=== PATIENT | female | born 1940 | race Caucasian/White ===

== ENCOUNTER 2018-10-09 17:43 | Inpatient (IN) | payer MEDICARE ==
[~2018-10-09] VITALS: Ht 152.4 cm; Wt 46.3 kg
--- OUTSIDE RECORDS SUMMARY | 2018-10-09 17:47 | XMS REPORT | Clinical Summary ---
Author Author [facility] Organization [facility] Address Unknown Phone Unavailable Care Team Providers Care Adult Care Provider Name Role Phone Barrett Reyna MD PCP Allergies No Known Allergies Medications End Date Status Medication Sig Dispensed Refills Start Date Active lisinopril Take 5 mg by 11 (PRINIVIL,ZESTRIL) 5 mg mouth every 8 tablet morning. Active aspirin (ECOTRIN) 81 MG Take 81 mg by 0 enteric coated tablet mouth every morning. Active omeprazole (PriLOSEC) 20 Take 20 mg by 0 MG capsule mouth every morning. 12/17/2017 Discontinued metoprolol tartrate Take 50 mg by 2 (LOPRESSOR) 50 mg tablet mouth every 8 morning. 12/29/2017 Discontinued lansoprazole (PREVACID) Take 15 mg by 0 15 MG capsule mouth daily. 01/16/2018 metoprolol tartrate Take 1 tablet 60 tablet 0 (LOPRESSOR) 50 mg tablet (50 mg total) 8 by mouth 2 (two) times a day for 30 days. 01/16/2018 apixaban (ELIQUIS) 2.5 mg Take 1 tablet 60 tablet 0 tablet (2.5 mg 8 total) by mouth 2 (two) times a day for 30 days. 01/16/2018 furosemide (LASIX) 40 mg Take 1 tablet 60 tablet 0 tablet (40 mg total) 8 by mouth 2 (two) times a day for 30 days. 01/03/2018 Discontinued escitalopram (LEXAPRO) 10 Take 1 tablet 30 tablet 0 MG tablet (10 mg total) 8 by mouth daily for 30 days. 02/02/2018 mirtazapine (REMERON) 7.5 Take 1 tablet 30 tablet 0 01/03/201 MG tablet (7.5 mg 8 total) by mouth nightly for 30 days. Active Problems Problem Noted Date Failure to thrive in adult 12/30/2017 Dehydration 12/29/2017 Atrial fibrillation with RVR 12/16/2017 Encounters Care Team Description Date Type Specialty Neda Choi MD Bavare, Arusha Amod, MD Dehydration (Primary Dx); Failure to thrive in adult; Atrial fibrillation with RVR 12/29/2017 [facility] General Surgery - Encounter 01/03/2018 Radha Ventura, NEY 12/17/2017 Patient Quality Outreach Michelle Beltran MD Yerramadha, Muralidhar Reddy, MD Atrial fibrillation with RVR (Primary Dx); Paroxysmal atrial fibrillation; Acute systolic congestive heart failure; Hyperkalemia; Acute on chronic combined systolic and diastolic congestive heart failure 12/15/2017 [facility] Internal Medicine - Encounter 12/17/2017 after 10/08/2017 Social History Date Tobacco Use Types Packs/Day Years Used Never Smoker Smokeless Tobacco: Never Used Alcohol Use Drinks/Week oz/Week Comments No Sex Assigned at Date Recorded Not on file Industry Job Start Date Occupation Not on file Not on file Not on file Travel End Travel History Travel Start No recent travel history available. Last Filed Vital Signs Time Taken Vital Sign Reading 01/03/2018 11:29 AM CDT Blood Pressure 112/59 01/03/2018 11:29 AM CDT Pulse 82 01/03/2018 11:29 AM CDT Temperature 36.6 C (97.9 F) 01/03/2018 11:29 AM CDT Respiratory Rate 16 01/03/2018 11:29 AM CDT Oxygen Saturation 94% - Inhaled Oxygen - Concentration 12/29/2017 2:42 PM CDT Weight 39.5 kg (87 lb) 12/29/2017 2:42 PM CDT Height 157.5 cm (5' 2") 12/29/2017 2:42 PM CDT Body Mass Index 15.91 Plan of Treatment Health Maintenance Due Date Last Done Comments SHINGLES VACCINES (#1) 1990 65+ PNEUMOCOCCAL VACCINE 2005 (1 of 2 - PCV13) PNEUMOCOCCAL 2005 POLYSACCHARIDE VACCINE AGE 65 AND OVER INFLUENZA VACCINE 02/08/2018 Procedures Comments Procedure Name Priority Date/Time Associated Diagnosis CT CHEST W CONTRAST Routine 01/03/2018 3:25 PM CDT SMEAR REVIEW Routine 01/03/2018 4:57 AM CDT ZZESTIMATED GFR Routine 01/03/2018 4:57 AM CDT BASIC METABOLIC PANEL Routine 01/03/2018 4:57 AM CDT HC COMPLETE BLD COUNT Routine 01/03/2018 W/AUTO DIFF 4:57 AM CDT VANCOMYCIN LEVEL, TROUGH Timed 01/01/2018 9:10 PM CDT VANCOMYCIN LEVEL, TROUGH Timed 12/31/2017 9:10 PM CDT ZZESTIMATED GFR Routine 12/30/2017 5:34 AM CDT BASIC METABOLIC PANEL Routine 12/30/2017 5:34 AM CDT HC COMPLETE BLD COUNT Routine 12/30/2017 W/AUTO DIFF 5:34 AM CDT VENOUS BLOOD GAS Routine 12/30/2017 1:35 AM CDT BLOOD CULTURE, AEROBIC & Routine 12/29/2017 ANAEROBIC 9:25 PM CDT B NATRIURETIC PEPTIDE Routine 12/29/2017 9:05 PM CDT LACTIC ACID LEVEL, SEPSIS Timed 12/29/2017 - NOW AND REPEAT 2X EVERY 9:05 PM CDT 3 HOURS BLOOD CULTURE, AEROBIC & Routine 12/29/2017 ANAEROBIC 9:05 PM CDT LACTIC ACID LEVEL, SEPSIS Timed 12/29/2017 - NOW AND REPEAT 2X EVERY 8:00 PM CDT 3 HOURS XR CHEST 1 VW STAT 12/29/2017 5:01 PM CDT URINALYSIS SCREEN AND STAT 12/29/2017 MICROSCOPY, WITH REFLEX 4:10 PM CDT TO CULTURE GRAM STAIN STAT 12/29/2017 4:10 PM CDT URINE CULTURE STAT 12/29/2017 4:10 PM CDT ZZESTIMATED GFR STAT 12/29/2017 4:00 PM CDT LACTIC ACID LEVEL, SEPSIS STAT 12/29/2017 - NOW AND REPEAT 2X EVERY 4:00 PM CDT 3 HOURS TROPONIN STAT 12/29/2017 4:00 PM CDT CREATINE KINASE, TOTAL STAT 12/29/2017 (CPK) 4:00 PM CDT COMPREHENSIVE METABOLIC STAT 12/29/2017 PANEL 4:00 PM CDT HC COMPLETE BLD COUNT STAT 12/29/2017 W/AUTO DIFF 4:00 PM CDT ECG 12-LEAD STAT 12/29/2017 3:33 PM CDT ECG ED PRELIMINARY Routine 12/29/2017 INTERPRETATION 3:18 PM CDT ECG 12-LEAD Routine 12/29/2017 2:55 PM CDT ZZESTIMATED GFR Routine 12/17/2017 5:30 AM CDT HC COMPLETE BLD COUNT Routine 12/17/2017 W/AUTO DIFF 5:30 AM CDT BASIC METABOLIC PANEL Routine 12/17/2017 5:30 AM CDT ECHOCARDIOGRAM 2D Routine 12/16/2017 COMPLETE W MMODE SPECTRAL 11:05 AM CDT COLOR DOPPLER (34619) TROPONIN Timed 12/15/2017 9:40 PM CDT TROPONIN Timed 12/15/2017 5:23 PM CDT XR CHEST 1 VW PORTABLE STAT 12/15/2017 2:00 PM CDT ECG ED PRELIMINARY Routine 12/15/2017 INTERPRETATION 1:48 PM CDT ZZESTIMATED GFR STAT 12/15/2017 1:28 PM CDT B NATRIURETIC PEPTIDE STAT 12/15/2017 1:28 PM CDT TROPONIN STAT 12/15/2017 1:28 PM CDT CREATINE KINASE, TOTAL STAT 12/15/2017 (CPK) 1:28 PM CDT COMPREHENSIVE METABOLIC STAT 12/15/2017 PANEL 1:28 PM CDT PARTIAL THROMBOPLASTIN STAT 12/15/2017 TIME (PTT) 1:28 PM CDT PROTHROMBIN TIME WITH INR STAT 12/15/2017 1:28 PM CDT HC COMPLETE BLD COUNT STAT 12/15/2017 W/AUTO DIFF 1:28 PM CDT ECG 12-LEAD STAT 12/15/2017 1:00 PM CDT after 10/08/2017 Results * CT Chest W Contrast (01/03/2018 3:25 PM CDT) Narrative Performed At EXAMINATION:CT CHEST W CONTRAST [facility] CLINICAL HISTORY: 77 years Female mediastinal lymph nodes TECHNIQUE: Multiple axial images of the chest were obtained following intravenous administration of iodinated contrast. Sagittal and coronal computerized reformatted images were also obtained. CT imaging was performed with iterative reconstruction techniques and/or automated exposure control to reduce radiation dose. COMPARISON: Chest x-ray from December 29, 2017 FINDINGS: There are a few small nonspecific mediastinal lymph nodes including a right paratracheal node measuring 6 mm in short axis just above the will. Additional small nodes in the aorticopulmonary window toward the left measure up to approximately 5.4 cm in diameter. No worrisome nodes are visualized. There is a small to moderate hiatal hernia. A small right pleural effusion is present with volume loss in the right hemithorax. The heart appears normal in size they're is no focal finding identified on views of the upper abdomen which were included in the study. There is emphysema. The left lung is moderately hyperinflated the right lung/hemithorax demonstrates volume loss with scarring and cicatrization in the medial right upper lobe medial right lower lobe and extending to the apex. 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 Correlation with clinical findings is needed. There are no additional findings of significance noted. There is no hilar adenopathy the findings noted on the chest x-ray appear to be result of scarring cicatrization of the right lung with some rotation on the chest x-ray as well. There is diffuse osteopenia of the thoracic spine. There is mild kyphosis no acute finding is visualized IMPRESSION: 1. 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 A mild area of pneumonia in the middle lobe medially is not excluded although this is probably related to chronic pleural and parenchymal scarring 2. Moderately large hiatal hernia. 3. Small right pleural effusion 4. No hilar mass is identified [id number] Procedure Note Hm Interface, Radiology Results Incoming - 01/03/2018 5:12 PM CDT EXAMINATION: CT CHEST W CONTRAST CLINICAL HISTORY: 77 years Female mediastinal lymph nodes TECHNIQUE: Multiple axial images of the chest were obtained following intravenous administration of iodinated contrast. Sagittal and coronal computerized reformatted images were also obtained. CT imaging was performed with iterative reconstruction techniques and/or automated exposure control to reduce radiation dose. COMPARISON: Chest x-ray from December 29, 2017 FINDINGS: There are a few small nonspecific mediastinal lymph nodes including a right paratracheal node measuring 6 mm in short axis just above the will. Additional small nodes in the aorticopulmonary window toward the left measure up to approximately 5.4 cm in diameter. No worrisome nodes are visualized. There is a small to moderate hiatal hernia. A small right pleural effusion is present with volume loss in the right hemithorax. The heart appears normal in size they're is no focal finding identified on views of the upper abdomen which were included in the study. There is emphysema. The left lung is moderately hyperinflated the right lung/hemithorax demonstrates volume loss with scarring and cicatrization in the medial right upper lobe medial right lower lobe and extending to the apex. 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 Correlation with clinical findings is needed. There are no additional findings of significance noted. There is no hilar adenopathy the findings noted on the chest x-ray appear to be result of scarring cicatrization of the right lung with some rotation on the chest x-ray as well. There is diffuse osteopenia of the thoracic spine. There is mild kyphosis no acute finding is visualized IMPRESSION: 1. 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 A mild area of pneumonia in the middle lobe medially is not excluded although this is probably related to chronic pleural and parenchymal scarring 2. Moderately large hiatal hernia. 3. Small right pleural effusion 4. No hilar mass is identified [id number] Performing Organization Address [facility]/Zipcode Phone Number [employer] [address] [place] [address] * Smear review (01/03/2018 4:57 AM CDT) Platelet slide review Chapo slt decr [facility] DEPARTMENT OF PATHOLOGY AND GENOMIC MEDICINE Performing Organization Address [facility] Phone Number [address] [place] [address] PATHOLOGY AND GENOMIC MEDICINE * Estimated GFR (01/03/2018 4:57 AM CDT) Only the most recent of 5 results within the time period is included. GFR Non Af Amer >90 mL/min/1.73 m2 [facility] DEPARTMENT OF PATHOLOGY AND GENOMIC MEDICINE GFR Af Amer >90 mL/min/1.73 m2 [facility] DEPARTMENT OF Comment: PATHOLOGY AND Chronic kidney disease: <60 GENOMIC MEDICINE mL/min/1.73m2 Kidney failure: <15 mL/min/1.73m2 The estimated GFR is calculated from the IDMS-traceable Modification of Diet in Renal Disease Equation. The accuracy of the calculation is poor when the creatinine is normal. Calculated values >90 mL/min/1.73m2 are not reported. This equation has not been validated in children (<18 years), women, the elderly (>70 years), or ethnic groups other than Caucasians and Americans. Specimen Plasma specimen Performing Organization Address [facility] Phone Number [address] [place] [address] PATHOLOGY AND GENOMIC MEDICINE * CBC with platelet and differential (01/03/2018 4:57 AM CDT) Only the most recent of 5 results within the time period is included. WBC 4.55 4.50 - 11.00 k/uL [facility] DEPARTMENT OF PATHOLOGY AND GENOMIC MEDICINE RBC 4.20 4.20 - 5.50 m/uL [facility] DEPARTMENT OF PATHOLOGY AND GENOMIC MEDICINE HGB 11.9 (L) 12.0 - 16.0 g/dL [facility] DEPARTMENT OF PATHOLOGY AND GENOMIC MEDICINE HCT 39.8 37.0 - 47.0 % [facility] DEPARTMENT OF PATHOLOGY AND GENOMIC MEDICINE MCV 94.8 82.0 - 100.0 fL [facility] DEPARTMENT OF PATHOLOGY AND GENOMIC MEDICINE MCH 28.3 27.0 - 34.0 pg [facility] DEPARTMENT OF PATHOLOGY AND GENOMIC MEDICINE MCHC 29.9 (L) 31.0 - 37.0 g/dL [facility] DEPARTMENT OF PATHOLOGY AND GENOMIC MEDICINE RDW - SD 50.9 37.0 - 55.0 fL [facility] DEPARTMENT OF PATHOLOGY AND GENOMIC MEDICINE MPV 10.1 8.8 - 13.2 fL [facility] DEPARTMENT OF PATHOLOGY AND GENOMIC MEDICINE Platelet count 148 (L) 150 - 400 k/uL [facility] DEPARTMENT OF PATHOLOGY AND GENOMIC MEDICINE Nucleated RBC 0.00 /100 WBC [facility] DEPARTMENT OF PATHOLOGY AND GENOMIC MEDICINE Neutrophils 64.8 39.0 - 69.0 % [facility] DEPARTMENT OF PATHOLOGY AND GENOMIC MEDICINE Lymphocytes 23.3 (L) 25.0 - 45.0 % [facility] DEPARTMENT OF PATHOLOGY AND GENOMIC MEDICINE Monocytes 10.3 (H) 0.0 - 10.0 % [facility] DEPARTMENT OF PATHOLOGY AND GENOMIC MEDICINE Eosinophils 0.7 0.0 - 5.0 % [facility] OF PATHOLOGY AND GENOMIC MEDICINE Basophils 0.7 0.0 - 1.0 % [facility] DEPARTMENT OF PATHOLOGY AND GENOMIC MEDICINE Specimen Blood Performing Organization Address City/State/Zipcode Phone Number [facility] [address] [place] [address] PATHOLOGY AND GENOMIC MEDICINE * Basic metabolic panel (01/03/2018 4:57 AM CDT) Only the most recent of 3 results within the time period is included. Sodium 132 (L) 135 - 148 mEq/L [facility] DEPARTMENT OF PATHOLOGY AND GENOMIC MEDICINE Potassium 4.0 3.5 - 5.0 mEq/L [facility] DEPARTMENT OF PATHOLOGY AND GENOMIC MEDICINE Chloride 94 (L) 98 - 112 mEq/L [facility] DEPARTMENT OF PATHOLOGY AND GENOMIC MEDICINE CO2 24 24 - 31 mEq/L [facility] DEPARTMENT OF PATHOLOGY AND GENOMIC MEDICINE Anion gap 14@ANIO 7 - 15 mEq/L [facility] DEPARTMENT OF PATHOLOGY AND GENOMIC MEDICINE BUN 22 8 - 23 mg/dL [facility] DEPARTMENT OF PATHOLOGY AND GENOMIC MEDICINE Creatinine 0.6 0.5 - 0.9 mg/dL [facility] DEPARTMENT OF PATHOLOGY AND GENOMIC MEDICINE Glucose 86 65 - 99 mg/dL [facility] DEPARTMENT OF PATHOLOGY AND GENOMIC MEDICINE Calcium 8.5 (L) 8.8 - 10.2 mg/dL [facility] DEPARTMENT OF PATHOLOGY AND GENOMIC MEDICINE Specimen Plasma specimen Performing Organization Address [facility] Phone Number [address] [place] [address] PATHOLOGY AND GENOMIC MEDICINE * Vancomycin level, trough (01/01/2018 9:10 PM CDT) Only the most recent of 2 results within the time period is included. Vancomycin, trough 11.3 10.0 - 20.0 ug/mL [facility] DEPARTMENT OF Comment: PATHOLOGY AND Therapeutic Ranges: GENOMIC MEDICINE Peak 30.0 - 40.0 ug/mL Pzzlhy29.0 - 20.0 ug/mL Specimen Serum Performing Organization Address [facility] Phone Number [address] [place] [address] PATHOLOGY [facility] GENOMIC [facility] * Venous blood gas (12/30/2017 1:35 AM CDT) pH, venous 7.43 (H) 7.32 - 7.42 [facility] DEPARTMENT OF PATHOLOGY AND GENOMIC MEDICINE pCO2, venous 60 (H) 45 - 51 mmHg [facility] DEPARTMENT OF PATHOLOGY AND GENOMIC MEDICINE pO2, venous 36 25 - 40 mmHg [facility] DEPARTMENT OF PATHOLOGY AND GENOMIC MEDICINE Base excess, venous 13 (H) -2 - 2 meq/L [facility] DEPARTMENT OF PATHOLOGY AND GENOMIC MEDICINE O2 saturation, venous 67 40 - 70 % [facility] DEPARTMENT OF PATHOLOGY AND GENOMIC MEDICINE Bicarbonate, venous 36.4 (H) 21.0 - 28.0 mmol/L [facility] DEPARTMENT OF PATHOLOGY AND GENOMIC MEDICINE FiO2, inspired O2% 100 % [facility] DEPARTMENT OF PATHOLOGY AND GENOMIC MEDICINE Specimen Blood Performing Organization Address [facility]/Zipcode Phone Number [address] [place] [address] PATHOLOGY AND GENOMIC MEDICINE * Blood culture, aerobic & anaerobic (12/29/2017 9:25 PM CDT) Only the most recent of 2 results within the time period is included. Blood culture isolate No growth after 5 days of [facility] DEPARTMENT OF incubation. PATHOLOGY AND Comment: GENOMIC MEDICINE Specimen Information Specimen Source: Blood Specimen Site: Unspecified Specimen Blood Performing Organization Address City/[facility]/Zipcode Phone Number [facility] DEPARTMENT OF [address] [place] [address] PATHOLOGY AND GENOMIC MEDICINE * Lactic acid level, SEPSIS - Now and repeat 2x every 3 hours (12/29/2017 9:05 PM CDT) Only the most recent of 3 results within the time period is included. Lactic acid 2.9 (H) 0.5 - 2.2 mmol/L [facility] DEPARTMENT OF PATHOLOGY AND GENOMIC MEDICINE Specimen Plasma specimen Performing Organization Address [facility] Phone Number [address] [place] [address] PATHOLOGY AND GENOMIC MEDICINE * B natriuretic peptide (12/29/2017 9:05 PM CDT) Only the most recent of 2 results within the time period is included. BNP 217 (H) 0 - 100 pg/mL [facility] DEPARTMENT OF PATHOLOGY AND GENOMIC MEDICINE Specimen Blood Performing Organization Address [facility] Phone Number [address] [place] [address] PATHOLOGY AND GENOMIC MEDICINE * XR Chest 1 Vw (12/29/2017 5:01 PM CDT) Narrative Performed At Examination: Chest 1 view PA AP. [facility] CLINICAL HISTORY: SOB COMPARISON: 12/15/2017 FINDINGS: The heart is normal in size. Degenerative changes in the dorsal spine. IMPRESSION: Small right pleural effusion. Right hilar fullness with mediastinal widening is unchanged suspicious for right hilar lymph node ormass lesion. Bilateral chronic pleural apical scarring. There is decreased volume in the right lung compared to the left. Retrocardiac air collection is suspicious for hiatal hernia. [id number] Procedure Note Interface, Radiology Results Incoming - 12/29/2017 5:14 PM CDT Examination: Chest 1 view PA AP. CLINICAL HISTORY: SOB COMPARISON: 12/15/2017 FINDINGS: The heart is normal in size. Degenerative changes in the dorsal spine. IMPRESSION: Small right pleural effusion. Right hilar fullness with mediastinal widening is unchanged suspicious for right hilar lymph node or mass lesion. Bilateral chronic pleural apical scarring. There is decreased volume in the right lung compared to the left. Retrocardiac air collection is suspicious for hiatal hernia. [id number] Performing Organization Address City/State/Zipcode Phone Number [facility] [address] [place] [address] * Urinalysis screen and microscopy, with reflex to culture (12/29/2017 4:10 PM CDT) Specimen site Clean catch [facility] DEPARTMENT OF PATHOLOGY AND GENOMIC MEDICINE Color, UA Yellow [facility] DEPARTMENT OF PATHOLOGY AND GENOMIC MEDICINE Appearance, UA Clear [facility] DEPARTMENT OF PATHOLOGY AND GENOMIC MEDICINE Specific gravity, UA 1.011 1.001 - 1.035 [facility] DEPARTMENT OF PATHOLOGY AND GENOMIC MEDICINE pH, UA 6.0 5.0 - 8.5 [facility] DEPARTMENT OF PATHOLOGY AND GENOMIC MEDICINE Protein, UA Negative Negative [facility] DEPARTMENT OF PATHOLOGY AND GENOMIC MEDICINE Glucose, UA Negative Negative [facility] DEPARTMENT OF PATHOLOGY AND GENOMIC MEDICINE Ketones, UA Negative Negative [facility] DEPARTMENT OF PATHOLOGY AND GENOMIC MEDICINE Bilirubin, UA Negative Negative [facility] DEPARTMENT OF PATHOLOGY AND GENOMIC MEDICINE Blood, UA Negative Negative [facility] DEPARTMENT OF PATHOLOGY AND GENOMIC MEDICINE Nitrite, UA Negative Negative [facility] DEPARTMENT OF PATHOLOGY AND GENOMIC MEDICINE Urobilinogen, UA Negative <2.0 [facility] DEPARTMENT OF PATHOLOGY AND GENOMIC MEDICINE Leukocyte esterase, UA Moderate (A) Negative [facility] DEPARTMENT OF PATHOLOGY AND GENOMIC MEDICINE Epithelial cells, UA Many /HPF [facility] DEPARTMENT OF PATHOLOGY AND GENOMIC MEDICINE Round epithelial cells, Many 0 - 1 /HPF [facility] DEPARTMENT OF UA PATHOLOGY AND GENOMIC MEDICINE WBC, UA 6-10 (H) 0 - 4 /HPF [facility] DEPARTMENT OF PATHOLOGY AND GENOMIC MEDICINE RBC, UA 0-5 0 - 5 /HPF [facility] DEPARTMENT OF PATHOLOGY AND GENOMIC MEDICINE Bacteria, UA None seen None seen [facility] DEPARTMENT OF PATHOLOGY AND GENOMIC MEDICINE Yeast, UA None seen [facility] DEPARTMENT OF PATHOLOGY AND GENOMIC MEDICINE Yeast with pseudohyphae, None seen [facility] DEPARTMENT UA PATHOLOGY AND GENOMIC MEDICINE Hyaline casts, UA >21 /LPF [facility] DEPARTMENT OF PATHOLOGY AND GENOMIC MEDICINE Specimen Urine Performing Organization Address [facility] Phone Number [address] [place] [id number] PATHOLOGY AND GENOMIC MEDICINE * Gram stain (12/29/2017 4:10 PM CDT) Gram stain result No WBC's or organisms seen. [facility] DEPARTMENT OF Comment: PATHOLOGY AND Specimen Information GENOMIC MEDICINE Specimen Source: Urine Specimen Site: Clean catch Specimen Urine Performing Organization Address [facility] Phone Number [facility] DEPARTMENT OF [address] [place] [phone] PATHOLOGY AND GENOMIC MEDICINE * Urine culture (12/29/2017 4:10 PM CDT) Urine culture isolate No growth after 2 days. [facility] DEPARTMENT OF Comment: PATHOLOGY AND Specimen Information GENOMIC MEDICINE Specimen Source: Urine Specimen Site: Clean catch Specimen Urine Performing Organization Address [facility] Phone Number [facility] DEPARTMENT OF [address] [place] [phone] PATHOLOGY AND GENOMIC MEDICINE * Troponin (12/29/2017 4:00 PM CDT) Only the most recent of 4 results within the time period is included. Troponin <0.300 0.000 - 0.300 ng/mL [facility] DEPARTMENT OF Comment: PATHOLOGY AND 0.30 - 1.49 GENOMIC MEDICINE ng/mlMay indicate increased risk of acute coronary syndrome. >=1.5 ng/ml Consistent with acute myocardial infarction. The diagnostic value of a single normal or non-diagnostic result is questionable.Serial samples at 2-6 hour intervals are required to rule out acute myocardial injury. Specimen Plasma specimen Performing Organization Address [facility] Phone Number [facility] DEPARTMENT [address] [place] [address] PATHOLOGY AND GENOMIC MEDICINE * Creatine kinase, total (CPK) (12/29/2017 4:00 PM CDT) Only the most recent of 2 results within the time period is included. Creatine kinase 38 26 - 192 U/L [facility] DEPARTMENT OF PATHOLOGY AND GENOMIC MEDICINE Specimen Plasma specimen Performing Organization Address [facility] Phone Number [address] [place] [address] PATHOLOGY AND GENOMIC MEDICINE * Comprehensive metabolic panel (12/29/2017 4:00 PM CDT) Only the most recent of 2 results within the time period is included. Sodium 141 135 - 148 mEq/L [facility] DEPARTMENT OF PATHOLOGY AND GENOMIC MEDICINE Potassium 3.0 (LL) 3.5 - 5.0 mEq/L [facility] DEPARTMENT OF Comment: PATHOLOGY AND Results called to and read GENOMIC MEDICINE back by LUCIAN Philippe/TEODORO at 12/29/2017 16:35 by [id number]. Chloride 91 (L) 98 - 112 mEq/L [facility] DEPARTMENT OF PATHOLOGY AND GENOMIC MEDICINE CO2 36 (H) 24 - 31 mEq/L [facility] DEPARTMENT OF PATHOLOGY AND GENOMIC MEDICINE Anion gap 14@ANIO 7 - 15 mEq/L [facility] DEPARTMENT OF PATHOLOGY AND GENOMIC MEDICINE BUN 25 (H) 8 - 23 mg/dL [facility] DEPARTMENT OF PATHOLOGY AND GENOMIC MEDICINE Creatinine 0.8 0.5 - 0.9 mg/dL [facility] DEPARTMENT OF PATHOLOGY AND GENOMIC MEDICINE Glucose 187 (H) 65 - 99 mg/dL [facility] DEPARTMENT OF PATHOLOGY AND GENOMIC MEDICINE Calcium 9.3 8.8 - 10.2 mg/dL [facility] DEPARTMENT OF PATHOLOGY AND GENOMIC MEDICINE Protein 7.7 6.3 - 8.3 g/dL [facility] DEPARTMENT OF Comment: PATHOLOGY AND GENOMIC MEDICINE 4.6-7.0 g/dL 1 week 4.4-7.6 g/dL 7 months-1year 5.1-7.3 g/dL 1-2 years5.6-7 .5 g/dL >3 years6.0-8 .0 g/dL 18-150 6.3-8.3 g/dL Albumin 3.8 3.5 - 5.0 g/dL [facility] DEPARTMENT OF PATHOLOGY AND GENOMIC MEDICINE A/G ratio 1.0 0.7 - 3.8 [facility] DEPARTMENT OF PATHOLOGY AND GENOMIC MEDICINE Alkaline phosphatase 70 35 - 104 U/L [facility] DEPARTMENT OF PATHOLOGY AND GENOMIC MEDICINE AST 25 10 - 35 U/L [facility] DEPARTMENT OF PATHOLOGY AND GENOMIC MEDICINE ALT 11 5 - 50 U/L [facility] DEPARTMENT OF PATHOLOGY AND GENOMIC MEDICINE Total bilirubin 0.7 0.0 - 1.2 mg/dL [facility] DEPARTMENT OF PATHOLOGY AND GENOMIC MEDICINE Specimen Plasma specimen Performing Organization Address City/State/Zipcode Phone Number [facility] [address] [place] [address] PATHOLOGY AND GENOMIC MEDICINE * ECG 12 lead (12/29/2017 3:33 PM CDT) Only the most recent of 3 results within the time period is included. Ventricular rate 104 [facility] Atrial rate 104 [facility] QRSD interval 74 [facility] QT interval 326 [facility] QTC interval 428 [facility] P axis 1 77 [facility] QRS axis 1 67 [facility] T wave axis 240 [facility] EKG impression Sinus tachycardia with 1st [facility] degree AV block with premature atrial complexes-Left ventricular hypertrophy with repolarization abnormality-Abnormal ECG-In automated comparison with ECG of 15-DEC-2017 13:00,-Sinus rhythm has replaced Atrial fibrillation-Nonspecific T wave abnormality now evident in Inferior leads-Nonspecific T wave abnormality, worse in Anterolateral leads- Performing Organization Address City/State/Zipcode Phone Number [facility] [address] [place] [address] * ECG ED Preliminary Interpretation - NOT AN ORDER (12/29/2017 3:18 PM CDT) Only the most recent of 2 results within the time period is included. Narrative Performed At Neda Choi MD 12/30/20171:24 AM ECG ED Preliminary Interpretation - Not an Order Performed by: NEDA CHOI Authorized by: NEDA CHOI ECG reviewed by ED Physician in the absence of a signing teacher: yes Interpretation: Interpretation: abnormal Rate: ECG rate:104 ECG rate assessment: tachycardic Rhythm: Rhythm: A-V block Rhythm comment:1st degree QRS: QRS axis:Normal ST segments: ST segments:Non-specific T waves: T waves: non-specific * Echocardiogram complete w contrast and 3D if needed (12/16/2017 11:05 AM CDT) AoV Area, Vmax 1.36 cm2 [facility] AoV Area, VTI 1.62 cm2 [facility] AoV Mean PG 5.49 mmHg [facility] AoV Peak PG 17.52 mmHg [facility] AoV Vmax 2.09 m/s [facility] AoV VTI 0.24 m [facility] IVS,d 0.85 0.6 - 1.2 cm [facility] LV,d 3.15 cm [facility] LV EF,A2C 62.27 % [facility] LV EF,A4C 53.34 % [facility] LV EF,BP 58.40 % [facility] [place],d A2C 6.80 cm [facility] [place],d A4C 6.26 cm [facility] [place],s A2C 6.13 cm [facility] [place],s A4C 5.72 cm [facility] LV,s 2.27 cm [facility] LV SV,A2C 29.45 % [facility] LV SV,A4C 19.71 % [facility] LV Vol,d A2C 47.28 mL [facility] LV Vol,d A4C 36.95 ml [facility] LV Vol,d BP 43.23 ml [facility] LV Vol,s A2C 17.84 mL [facility] LV Vol,s A4C 17.24 ml [facility] LV Vol,s BP 17.98 nl [facility] LVOT Diam,S 1.86 cm [facility] LVOT Vmax 0.79 m/s [facility] LVOT VTI 0.14 m [facility] LVPWD,d 0.60 cm [facility] TR Vpeak 2.80 mm/s [facility] MV E A ratio 1.17 mmHg [facility] TR pk grad 31.30 mmHg [facility] E wave decelartion time 168.05 msec [facility] MV Peak A Yevgeniy 0.47 m/s [facility] MV valve area p 1/2 6.25 cm2 [facility] method MV Peak E Yevgeniy 0.55 m/s [facility] MV stenosis pressure 1/2 35.22 ms [facility] time AV LVOT peak gradient 2.47 mmHg [facility] LV SYS VOL 17.51 ml [facility] LV ARAMBULA VOL 39.53 ml [facility] LV SV Teich 2D 22.02 ml [facility] LVOT SI 28.11 ml/m2 [facility] AoV Cusp sep 0.81 [facility] AoV Vmn 1.11 [facility] IVS s 2D 1.03 [facility] LA Ao Ratio Mmode 1.23 [facility] LVOT Vmn 0.49 [facility] Ao root annulus 2.70 cm [facility] PV AT 76.12 msec [facility] LVOT mean grad 1.12 mmHg [facility] LVPW s PLAX 1.01 cm [facility] MV Decel slope 3.28 m/s2 [facility] LA Vol MOD A4C 32.58 ml [facility] Velocity Ratio (V1/V2) 0.38 m/s [facility] EF 55.70 % [facility] E/A ratio 1.17 [facility] LVOT area 2.72 cm2 [facility] LA volume 40.0 cm3 [facility] LA Area d A4C 33 cm2 [facility] RVSP (TR) 36.30 mmHg [facility] RA pressure 5.00 mmHg [facility] RVSP 36.30 mmHg [facility] LA diam s 3.30 cm [facility] Aortic Root 2.70 cm [facility] D E excurs 1.60 [facility] E f slope 0.03 [facility] E prime lat 0.06 [facility] E wilmer sept 0.05 [facility] PV acc T slope 12.40 [facility] Narrative Performed At [facility] The left ventricle chamber size is normal. Left Ventricular ejection fraction is 55 - 60%. No pericardial effusion Mild to moderate aortic valve stenosis. Mild pulmonary hypertension present. Performing Organization Address City/State/Zipcode Phone Number [facility] [address] [place] [address] * XR Chest 1 Vw Portable (12/15/2017 2:00 PM CDT) Narrative Performed At EXAMINATION:XR CHEST 1 VW PORTABLE [facility] CLINICAL HISTORY:Chest Pain COMPARISON:10/04/2017 IMPRESSION: 1.Small to moderate right pleural effusion. Extensive scarring and volume loss. Right hilar fullness is similar to prior exam, cannot rule out underlying lesion. Biapical pleural parenchymal scarring. The left lung is otherwise clear. 2.Top normal heart size. Mild atherosclerosis of thoracic aorta. 3.Generalized bone demineralization. Degenerative changes in the spine and shoulders. [id number] Procedure Note Hm Interface, Radiology Results Incoming - 12/15/2017 2:13 PM CDT EXAMINATION: XR CHEST 1 VW PORTABLE CLINICAL HISTORY: Chest Pain COMPARISON: 10/04/2017 IMPRESSION: 1. Small to moderate right pleural effusion. Extensive scarring and volume loss. Right hilar fullness is similar to prior exam, cannot rule out underlying lesion. Biapical pleural parenchymal scarring. The left lung is otherwise clear. 2. Top normal heart size. Mild atherosclerosis of thoracic aorta. 3. Generalized bone demineralization. Degenerative changes in the spine and shoulders. [facility]-[id number] Performing Organization Address [facility] Phone Number [facility] [address] [place] [address] * Partial thromboplastin time, activated (12/15/2017 1:28 PM CDT) PTT 26.1 23.0 - 36.0 sec [facility] DEPARTMENT OF Comment: PATHOLOGY AND PTT therapeutic range for GENOMIC MEDICINE unfractionated heparin is 61.0-112.0 seconds which corresponds to Anti-Xa 0.3-0.7 U/ml. Specimen Blood Performing Organization Address [facility] Phone Number [facility] [place] [id number] [place] [address] [place] [address] PATHOLOGY AND GENOMIC MEDICINE * Prothrombin time with INR (12/15/2017 1:28 PM CDT) Prothrombin time 13.2 12.0 - 15.0 sec [facility] DEPARTMENT OF PATHOLOGY AND GENOMIC MEDICINE INR 1.0 [facility] DEPARTMENT OF Comment: PATHOLOGY AND The International Normalized GENOMIC MEDICINE Ratio (INR) is a therapeutic monitoring tool for patients who are stable on oral anticoagulant therapy. An INR of 2.0-3.0 is suggested for deep vein thrombosis/pulmonary embolism. Specimen Blood Performing Organization Address [facility] Phone Number [address] [place] [address] PATHOLOGY AND GENOMIC MEDICINE after 10/08/2017 Insurance Payer Benefit Subscriber ID Type Phone Address Plan / Group HU[employer] MEDICARE HUMANA xxxxxxxxx PPO MEDICARE PPO/PFFS/E [facility] Advance Directives Patient has advance care planning documents, and code status on file. For more i nformation, please contact: Brant Talamantes [address] [place] [address] Date Inactivated Comments Code Status Date Activated 12/17/2017 5:30 PM Full Code 12/15/2017 5:13 PM Code Status decision reached by: Patient
--- OUTSIDE RECORDS SUMMARY | 2018-10-09 17:47 | XMS REPORT ---
Author Author S Laurie Jiang Organization Unknown Address [address] [facility]. Phone Unavailable Care Team Providers Care Direct Care Supervisor Name Role Phone Dr. 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 01/03/2018 Active A41.9 SEPSIS, UNSPECIFIED ORGANISM 01/02/2018 Active I50.9 HEART FAILURE, UNSPECIFIED 01/02/2018 Active J44.9 CHRONIC OBSTRUCTIVE PULMONARY DISEASE, UNSPECIFIED 01/02/2018 Active I10 ESSENTIAL (PRIMARY) HYPERTENSION 01/02/2018 Active K21.9 GASTRO-ESOPHAGEAL REFLUX DISEASE WITHOUT ESOPHAGITIS 01/02/2018 Active F32.9 MAJOR DEPRESSIVE DISORDER, SINGLE EPISODE, UNSPECIFIED 01/02/2018 Active I25.2 OLD MYOCARDIAL INFARCTION 01/02/2018 Active E46 UNSPECIFIED PROTEIN-CALORIE MALNUTRITION 01/02/2018 Active 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 01/02/2018 Active Medications Medication Dose Form Route Sig Text Dates Status Omeprazole Capsule Delayed Release 20 MG 1 capsule Capsule Delayed Release Oral Give 1 capsule by mouth in the morning for GASTRIC ULCER 01/04/2018 7:00:00 01/24/2018 15:22:00 Aborted Apixaban Tablet 2.5 MG 1 tablet Tablet Oral 1 TAB(S) BY MOUTH 2 TIMES A DAY 01/04/2018 7:00:00 01/24/2018 15:22:00 Aborted Lisinopril Tablet 5 MG 1 tablet Tablet Oral 1 TAB(S) BY MOUTH DAILY 01/04/2018 7:00:00 01/24/2018 15:22:00 Aborted Lasix Tablet 40 MG 1 tablet Tablet Oral 1 TAB(S) BY MOUTH 2 TIMES A DAY 01/04/2018 7:00:00 01/10/2018 15:23:00 Aborted Aspirin Tablet 81 MG 1 tablet Tablet Oral Give 1 tablet by mouth in the morning for prevent blood clot 01/04/2018 7:00:00 01/24/2018 15:22:00 Aborted Mirtazapine Tablet 7.5 MG 1 tablet Tablet Oral 1 TAB(S) BY MOUTH AT BEDTIME 01/04/2018 19:00:00 01/10/2018 17:27:00 Aborted Metoprolol Tartrate Tablet 50 MG 1 tablet Tablet Oral 1 TAB(S) BY MOUTH 2 TIMES A DAY (HOLD FOR SBP <110; HR <60) 01/04/2018 7:00:00 01/24/2018 15:22:00 Aborted Silvadene Cream 1 % Cream External 1 APPLICATION TOPICALLY DAILY SHIFT SACRAL /LEFT GLUTEAL 01/05/2018 7:00:00 01/24/2018 15:22:00 Aborted Potassium Chloride ER Tablet Extended Release 20 MEQ 1 tablet Tablet Extended Release Oral Give 1 tablet by mouth one time a day related to HEART FAILURE, UNSPECIFIED (I50.9) 01/05/2018 7:00:00 01/12/2018 18:31:00 Aborted Santyl Ointment 250 UNIT/GM Ointment External 1 APPLICATION TOPICALLY DAILY AFFECTED AREA SACRAL ULCER 01/11/2018 7:00:00 01/24/2018 15:22:00 Aborted Nystatin Cream [id number] UNIT/GM Cream External Apply to sacral nima-wound topically every day shift for wound healing cleanse sacral ulcer with ns or wc, apply nystatin to periwound, santyl to the wound and cover with foam 01/11/2018 7:00:00 01/24/2018 15:22:00 Aborted Lasix Tablet 40 MG 1 tablet Tablet Oral 1 TAB(S) BY MOUTH DAILY 01/13/2018 7:00:00 01/12/2018 18:29:00 Aborted Remeron Tablet 15 MG 1 tablet Tablet Oral 1 TAB(S) BY MOUTH AT BEDTIME 01/10/2018 19:00:00 Lasix Tablet 40 MG 1 tablet Tablet Oral Give 1 tablet by mouth one time a day for Diuretic 01/15/2018 7:00:00 01/18/2018 14:39:00 Aborted Potassium Chloride ER Tablet Extended Release 20 MEQ 1 tablet Tablet Extended Release Oral Give 1 tablet by mouth one time a day related to HEART FAILURE, UNSPECIFIED (I50.9) 01/15/2018 7:00:00 01/18/2018 14:38:00 Aborted Multiple Vitamins-Minerals Tablet 1 tablet Tablet Oral Give 1 tablet by mouth one time a day for Micronutrient needs for PU healing 01/17/2018 7:00:00 01/24/2018 15:22:00 Aborted Furosemide Tablet 20 MG 1 tablet Tablet Oral 1 TAB(S) BY MOUTH DAILY 01/19/2018 7:00:00 01/24/2018 15:22:00 Aborted Tuberculin PPD Solution 0.1 ml Solution Intradermal Inject 0.1 ml intradermally one time only for Prophylaxis for 1 Day Adm within first 24 hours of admission. Repeat yearly. 01/03/2018 18:30:00 01/04/2018 18:29:00 Completed Tylenol Tablet 325 MG 2 tablet Tablet Oral Give 2 tablet by mouth every 6 hours as needed for pain for 3 Days not exceed more than 3gm in 24 hour 01/03/2018 21:00:00 01/06/2018 20:59:00 Completed Sodium Polystyrene Sulfonate Suspension 15 GM/60ML 30 gram Suspension Oral Give 30 gram by mouth one time only for high pottasium for 1 Day 01/12/2018 21:58:00 01/13/2018 21:57:00 Completed Ascorbic Acid Tablet 500 MG 1 tablet Tablet Oral Give 1 tablet by mouth two times a day for supplement for 60 Days 01/16/2018 15:00:00 01/24/2018 15:22:00 Aborted Zinc Sulfate Capsule 220 MG 1 capsule Capsule Oral Give 1 capsule by mouth one time a day for zinc deficiency for 60 Days 01/17/2018 7:00:00 01/24/2018 15:22:00 Aborted Results No Known Results Vital signs Description Observation Date INTRAVASCULAR SYSTOLIC 104.0 mm[Hg] 01/03/2018 22:50:00 INTRAVASCULAR DIASTOLIC 44.0 mm[Hg] 01/03/2018 22:50:00 BODY TEMPERATURE 96.8 [degF] 01/03/2018 22:50:00 RESPIRATION RATE 18.0 /min 01/03/2018 22:50:00 HEART BEAT 78.0 {beats}/min 01/03/2018 22:50:00 OXYGEN SATURATION 94.0 % 01/03/2018 22:50:00 RESPIRATION RATE 18.0 /min 01/04/2018 4:34:57 INTRAVASCULAR SYSTOLIC 98.0 mm[Hg] 01/04/2018 4:34:57 INTRAVASCULAR DIASTOLIC 64.0 mm[Hg] 01/04/2018 4:34:57 BODY TEMPERATURE 98.8 [degF] 01/04/2018 4:34:57 HEART BEAT 89.0 {beats}/min 01/04/2018 4:34:57 OXYGEN SATURATION 94.0 % 01/04/2018 4:48:00 RESPIRATION RATE 18.0 /min 01/04/2018 10:19:31 INTRAVASCULAR SYSTOLIC 109.0 mm[Hg] 01/04/2018 10:19:31 INTRAVASCULAR DIASTOLIC 74.0 mm[Hg] 01/04/2018 10:19:31 BODY TEMPERATURE 98.1 [degF] 01/04/2018 10:19:31 HEART BEAT 93.0 {beats}/min 01/04/2018 10:19:31 BODY WEIGHT (MEASURED) 87.0 [lb_av] 01/04/2018 10:31:00 BODY HEIGHT (MEASURED) 60.0 [in_i] 01/04/2018 10:31:00 INTRAVASCULAR SYSTOLIC 105.0 mm[Hg] 01/04/2018 14:18:59 INTRAVASCULAR DIASTOLIC 55.0 mm[Hg] 01/04/2018 14:18:59 HEART BEAT 82.0 {beats}/min 01/04/2018 14:18:59 RESPIRATION RATE 18.0 /min 01/04/2018 17:21:41 INTRAVASCULAR SYSTOLIC 105.0 mm[Hg] 01/04/2018 17:21:41 INTRAVASCULAR DIASTOLIC 55.0 mm[Hg] 01/04/2018 17:21:41 BODY TEMPERATURE 98.7 [degF] 01/04/2018 17:21:41 HEART BEAT 82.0 {beats}/min 01/04/2018 17:21:41 RESPIRATION RATE 18.0 /min 01/05/2018 3:54:32 INTRAVASCULAR SYSTOLIC 104.0 mm[Hg] 01/05/2018 3:54:32 INTRAVASCULAR DIASTOLIC 61.0 mm[Hg] 01/05/2018 3:54:32 BODY TEMPERATURE 97.9 [degF] 01/05/2018 3:54:32 HEART BEAT 84.0 {beats}/min 01/05/2018 3:54:32 OXYGEN SATURATION 94.0 % 01/05/2018 4:27:00 PAIN LEVEL 0.0 {score} 01/05/2018 7:16:43 INTRAVASCULAR SYSTOLIC 116.0 mm[Hg] 01/05/2018 7:17:33 INTRAVASCULAR DIASTOLIC 78.0 mm[Hg] 01/05/2018 7:17:33 HEART BEAT 77.0 {beats}/min 01/05/2018 7:17:33 RESPIRATION RATE 18.0 /min 01/05/2018 9:08:59 BODY TEMPERATURE 97.2 [degF] 01/05/2018 9:08:59 INTRAVASCULAR SYSTOLIC 111.0 mm[Hg] 01/05/2018 10:06:42 INTRAVASCULAR DIASTOLIC 69.0 mm[Hg] 01/05/2018 10:06:42 HEART BEAT 75.0 {beats}/min 01/05/2018 10:06:42 INTRAVASCULAR SYSTOLIC 117.0 mm[Hg] 01/05/2018 15:08:48 INTRAVASCULAR DIASTOLIC 92.0 mm[Hg] 01/05/2018 15:08:48 HEART BEAT 75.0 {beats}/min 01/05/2018 15:08:48 INTRAVASCULAR SYSTOLIC 102.0 mm[Hg] 01/05/2018 17:49:00 INTRAVASCULAR DIASTOLIC 72.0 mm[Hg] 01/05/2018 17:49:00 BODY TEMPERATURE 98.2 [degF] 01/05/2018 17:49:00 RESPIRATION RATE 18.0 /min 01/05/2018 17:49:00 HEART BEAT 88.0 {beats}/min 01/05/2018 17:49:00 OXYGEN SATURATION 92.0 % 01/05/2018 17:49:00 RESPIRATION RATE 18.0 /min 01/05/2018 21:13:10 INTRAVASCULAR SYSTOLIC 102.0 mm[Hg] 01/05/2018 21:13:10 INTRAVASCULAR DIASTOLIC 72.0 mm[Hg] 01/05/2018 21:13:10 BODY TEMPERATURE 98.1 [degF] 01/05/2018 21:13:10 HEART BEAT 88.0 {beats}/min 01/05/2018 21:13:10 OXYGEN SATURATION 98.0 % 01/06/2018 0:48:00 RESPIRATION RATE 18.0 /min 01/06/2018 0:54:35 INTRAVASCULAR SYSTOLIC 93.0 mm[Hg] 01/06/2018 0:54:35 INTRAVASCULAR DIASTOLIC 58.0 mm[Hg] 01/06/2018 0:54:35 BODY TEMPERATURE 98.1 [degF] 01/06/2018 0:54:35 HEART BEAT 86.0 {beats}/min 01/06/2018 0:54:35 INTRAVASCULAR SYSTOLIC 115.0 mm[Hg] 01/06/2018 7:29:36 INTRAVASCULAR DIASTOLIC 62.0 mm[Hg] 01/06/2018 7:29:36 HEART BEAT 89.0 {beats}/min 01/06/2018 7:29:36 PAIN LEVEL 0.0 {score} 01/06/2018 7:30:55 RESPIRATION RATE 18.0 /min 01/06/2018 9:31:55 BODY TEMPERATURE 97.6 [degF] 01/06/2018 9:31:55 INTRAVASCULAR SYSTOLIC 123.0 mm[Hg] 01/06/2018 11:25:01 INTRAVASCULAR DIASTOLIC 66.0 mm[Hg] 01/06/2018 11:25:01 HEART BEAT 64.0 {beats}/min 01/06/2018 11:25:01 INTRAVASCULAR SYSTOLIC 114.0 mm[Hg] 01/06/2018 15:09:15 INTRAVASCULAR DIASTOLIC 68.0 mm[Hg] 01/06/2018 15:09:15 HEART BEAT 82.0 {beats}/min 01/06/2018 15:09:15 INTRAVASCULAR SYSTOLIC 114.0 mm[Hg] 01/06/2018 15:53:00 INTRAVASCULAR DIASTOLIC 68.0 mm[Hg] 01/06/2018 15:53:00 BODY TEMPERATURE 98.2 [degF] 01/06/2018 15:53:00 RESPIRATION RATE 18.0 /min 01/06/2018 15:53:00 HEART BEAT 82.0 {beats}/min 01/06/2018 15:53:00 OXYGEN SATURATION 96.0 % 01/06/2018 15:53:00 RESPIRATION RATE 18.0 /min 01/06/2018 20:39:56 INTRAVASCULAR SYSTOLIC 114.0 mm[Hg] 01/06/2018 20:39:56 INTRAVASCULAR DIASTOLIC 68.0 mm[Hg] 01/06/2018 20:39:56 BODY TEMPERATURE 98.1 [degF] 01/06/2018 20:39:56 HEART BEAT 82.0 {beats}/min 01/06/2018 20:39:56 OXYGEN SATURATION 99.0 % 01/07/2018 0:33:00 RESPIRATION RATE 18.0 /min 01/07/2018 0:43:50 INTRAVASCULAR SYSTOLIC 110.0 mm[Hg] 01/07/2018 0:43:50 INTRAVASCULAR DIASTOLIC 56.0 mm[Hg] 01/07/2018 0:43:50 BODY TEMPERATURE 97.8 [degF] 01/07/2018 0:43:50 HEART BEAT 90.0 {beats}/min 01/07/2018 0:43:50 PAIN LEVEL 0.0 {score} 01/07/2018 7:18:49 INTRAVASCULAR SYSTOLIC 102.0 mm[Hg] 01/07/2018 7:19:38 INTRAVASCULAR DIASTOLIC 67.0 mm[Hg] 01/07/2018 7:19:38 HEART BEAT 81.0 {beats}/min 01/07/2018 7:19:38 RESPIRATION RATE 18.0 /min 01/07/2018 10:06:35 INTRAVASCULAR SYSTOLIC 102.0 mm[Hg] 01/07/2018 10:06:35 INTRAVASCULAR DIASTOLIC 67.0 mm[Hg] 01/07/2018 10:06:35 BODY TEMPERATURE 98.0 [degF] 01/07/2018 10:06:35 HEART BEAT 81.0 {beats}/min 01/07/2018 10:06:35 INTRAVASCULAR SYSTOLIC 107.0 mm[Hg] 01/07/2018 10:43:42 INTRAVASCULAR DIASTOLIC 70.0 mm[Hg] 01/07/2018 10:43:42 HEART BEAT 81.0 {beats}/min 01/07/2018 10:43:42 INTRAVASCULAR SYSTOLIC 88.0 mm[Hg] 01/07/2018 14:55:37 INTRAVASCULAR DIASTOLIC 51.0 mm[Hg] 01/07/2018 14:55:37 HEART BEAT 101.0 {beats}/min 01/07/2018 14:55:37 RESPIRATION RATE 18.0 /min 01/07/2018 18:39:37 INTRAVASCULAR SYSTOLIC 91.0 mm[Hg] 01/07/2018 18:39:37 INTRAVASCULAR DIASTOLIC 56.0 mm[Hg] 01/07/2018 18:39:37 BODY TEMPERATURE 98.6 [degF] 01/07/2018 18:39:37 HEART BEAT 96.0 {beats}/min 01/07/2018 18:39:37 RESPIRATION RATE 18.0 /min 01/08/2018 4:17:14 INTRAVASCULAR SYSTOLIC 124.0 mm[Hg] 01/08/2018 4:17:14 INTRAVASCULAR DIASTOLIC 63.0 mm[Hg] 01/08/2018 4:17:14 BODY TEMPERATURE 97.5 [degF] 01/08/2018 4:17:14 HEART BEAT 62.0 {beats}/min 01/08/2018 4:17:14 OXYGEN SATURATION 97.0 % 01/08/2018 4:33:00 PAIN LEVEL 0.0 {score} 01/08/2018 11:36:06 INTRAVASCULAR SYSTOLIC 115.0 mm[Hg] 01/08/2018 11:41:05 INTRAVASCULAR DIASTOLIC 78.0 mm[Hg] 01/08/2018 11:41:05 HEART BEAT 76.0 {beats}/min 01/08/2018 11:41:05 INTRAVASCULAR SYSTOLIC 131.0 mm[Hg] 01/08/2018 11:41:54 INTRAVASCULAR DIASTOLIC 56.0 mm[Hg] 01/08/2018 11:41:54 HEART BEAT 73.0 {beats}/min 01/08/2018 11:41:54 RESPIRATION RATE 18.0 /min 01/08/2018 12:05:42 INTRAVASCULAR SYSTOLIC 105.0 mm[Hg] 01/08/2018 12:05:42 INTRAVASCULAR DIASTOLIC 54.0 mm[Hg] 01/08/2018 12:05:42 BODY TEMPERATURE 97.9 [degF] 01/08/2018 12:05:42 HEART BEAT 95.0 {beats}/min 01/08/2018 12:05:42 INTRAVASCULAR SYSTOLIC 134.0 mm[Hg] 01/08/2018 21:37:30 INTRAVASCULAR DIASTOLIC 96.0 mm[Hg] 01/08/2018 21:37:30 HEART BEAT 71.0 {beats}/min 01/08/2018 21:37:30 RESPIRATION RATE 18.0 /min 01/09/2018 3:48:31 INTRAVASCULAR SYSTOLIC 100.0 mm[Hg] 01/09/2018 3:48:31 INTRAVASCULAR DIASTOLIC 61.0 mm[Hg] 01/09/2018 3:48:31 BODY TEMPERATURE 97.6 [degF] 01/09/2018 3:48:31 HEART BEAT 89.0 {beats}/min 01/09/2018 3:48:31 OXYGEN SATURATION 93.0 % 01/09/2018 4:18:00 PAIN LEVEL 0.0 {score} 01/09/2018 6:54:16 INTRAVASCULAR SYSTOLIC 106.0 mm[Hg] 01/09/2018 6:59:28 INTRAVASCULAR DIASTOLIC 70.0 mm[Hg] 01/09/2018 6:59:28 HEART BEAT 84.0 {beats}/min 01/09/2018 6:59:28 RESPIRATION RATE 18.0 /min 01/09/2018 10:42:28 BODY TEMPERATURE 97.6 [degF] 01/09/2018 10:42:28 INTRAVASCULAR SYSTOLIC 111.0 mm[Hg] 01/09/2018 12:19:24 INTRAVASCULAR DIASTOLIC 68.0 mm[Hg] 01/09/2018 12:19:24 HEART BEAT 73.0 {beats}/min 01/09/2018 12:19:24 INTRAVASCULAR SYSTOLIC 105.0 mm[Hg] 01/09/2018 15:06:55 INTRAVASCULAR DIASTOLIC 64.0 mm[Hg] 01/09/2018 15:06:55 HEART BEAT 95.0 {beats}/min 01/09/2018 15:06:55 RESPIRATION RATE 18.0 /min 01/09/2018 17:38:29 INTRAVASCULAR SYSTOLIC 105.0 mm[Hg] 01/09/2018 17:38:29 INTRAVASCULAR DIASTOLIC 64.0 mm[Hg] 01/09/2018 17:38:29 BODY TEMPERATURE 97.9 [degF] 01/09/2018 17:38:29 HEART BEAT 95.0 {beats}/min 01/09/2018 17:38:29 OXYGEN SATURATION 96.0 % 01/10/2018 0:31:00 RESPIRATION RATE 18.0 /min 01/10/2018 0:34:45 INTRAVASCULAR SYSTOLIC 110.0 mm[Hg] 01/10/2018 0:34:45 INTRAVASCULAR DIASTOLIC 64.0 mm[Hg] 01/10/2018 0:34:45 BODY TEMPERATURE 98.0 [degF] 01/10/2018 0:34:45 HEART BEAT 94.0 {beats}/min 01/10/2018 0:34:45 INTRAVASCULAR SYSTOLIC 108.0 mm[Hg] 01/10/2018 7:04:56 INTRAVASCULAR DIASTOLIC 77.0 mm[Hg] 01/10/2018 7:04:56 HEART BEAT 90.0 {beats}/min 01/10/2018 7:04:56 PAIN LEVEL 0.0 {score} 01/10/2018 7:05:12 RESPIRATION RATE 18.0 /min 01/10/2018 9:13:50 BODY TEMPERATURE 97.6 [degF] 01/10/2018 9:13:50 INTRAVASCULAR SYSTOLIC 111.0 mm[Hg] 01/10/2018 12:10:38 INTRAVASCULAR DIASTOLIC 69.0 mm[Hg] 01/10/2018 12:10:38 HEART BEAT 74.0 {beats}/min 01/10/2018 12:10:38 INTRAVASCULAR SYSTOLIC 110.0 mm[Hg] 01/10/2018 15:59:20 INTRAVASCULAR DIASTOLIC 73.0 mm[Hg] 01/10/2018 15:59:20 HEART BEAT 104.0 {beats}/min 01/10/2018 15:59:20 RESPIRATION RATE 19.0 /min 01/10/2018 17:43:15 INTRAVASCULAR SYSTOLIC 110.0 mm[Hg] 01/10/2018 17:43:15 INTRAVASCULAR DIASTOLIC 73.0 mm[Hg] 01/10/2018 17:43:15 BODY TEMPERATURE 98.5 [degF] 01/10/2018 17:43:15 HEART BEAT 104.0 {beats}/min 01/10/2018 17:43:15 OXYGEN SATURATION 99.0 % 01/11/2018 0:14:00 RESPIRATION RATE 18.0 /min 01/11/2018 0:17:54 INTRAVASCULAR SYSTOLIC 100.0 mm[Hg] 01/11/2018 0:17:54 INTRAVASCULAR DIASTOLIC 62.0 mm[Hg] 01/11/2018 0:17:54 BODY TEMPERATURE 98.1 [degF] 01/11/2018 0:17:54 HEART BEAT 78.0 {beats}/min 01/11/2018 0:17:54 PAIN LEVEL 0.0 {score} 01/11/2018 7:00:54 INTRAVASCULAR SYSTOLIC 111.0 mm[Hg] 01/11/2018 7:01:33 INTRAVASCULAR DIASTOLIC 73.0 mm[Hg] 01/11/2018 7:01:33 HEART BEAT 83.0 {beats}/min 01/11/2018 7:01:33 RESPIRATION RATE 18.0 /min 01/11/2018 9:05:36 BODY TEMPERATURE 97.6 [degF] 01/11/2018 9:05:36 BODY WEIGHT (MEASURED) 81.0 [lb_av] 01/11/2018 9:31:00 INTRAVASCULAR SYSTOLIC 109.0 mm[Hg] 01/11/2018 12:09:11 INTRAVASCULAR DIASTOLIC 61.0 mm[Hg] 01/11/2018 12:09:11 HEART BEAT 75.0 {beats}/min 01/11/2018 12:09:11 INTRAVASCULAR SYSTOLIC 92.0 mm[Hg] 01/11/2018 14:52:51 INTRAVASCULAR DIASTOLIC 43.0 mm[Hg] 01/11/2018 14:52:51 HEART BEAT 94.0 {beats}/min 01/11/2018 14:52:51 INTRAVASCULAR SYSTOLIC 92.0 mm[Hg] 01/11/2018 18:28:00 INTRAVASCULAR DIASTOLIC 46.0 mm[Hg] 01/11/2018 18:28:00 BODY TEMPERATURE 98.2 [degF] 01/11/2018 18:28:00 RESPIRATION RATE 18.0 /min 01/11/2018 18:28:00 HEART BEAT 74.0 {beats}/min 01/11/2018 18:28:00 OXYGEN SATURATION 95.0 % 01/11/2018 18:28:00 RESPIRATION RATE 18.0 /min 01/11/2018 21:27:40 INTRAVASCULAR SYSTOLIC 92.0 mm[Hg] 01/11/2018 21:27:40 INTRAVASCULAR DIASTOLIC 46.0 mm[Hg] 01/11/2018 21:27:40 BODY TEMPERATURE 98.2 [degF] 01/11/2018 21:27:40 HEART BEAT 74.0 {beats}/min 01/11/2018 21:27:40 RESPIRATION RATE 16.0 /min 01/12/2018 4:21:20 INTRAVASCULAR SYSTOLIC 89.0 mm[Hg] 01/12/2018 4:21:20 INTRAVASCULAR DIASTOLIC 49.0 mm[Hg] 01/12/2018 4:21:20 BODY TEMPERATURE 97.6 [degF] 01/12/2018 4:21:20 HEART BEAT 62.0 {beats}/min 01/12/2018 4:21:20 OXYGEN SATURATION 95.0 % 01/12/2018 4:34:00 INTRAVASCULAR SYSTOLIC 96.0 mm[Hg] 01/12/2018 7:26:26 INTRAVASCULAR DIASTOLIC 62.0 mm[Hg] 01/12/2018 7:26:26 HEART BEAT 89.0 {beats}/min 01/12/2018 7:26:26 PAIN LEVEL 0.0 {score} 01/12/2018 7:26:46 BODY WEIGHT (MEASURED) 82.4 [lb_av] 01/12/2018 8:01:00 RESPIRATION RATE 18.0 /min 01/12/2018 8:58:55 INTRAVASCULAR SYSTOLIC 96.0 mm[Hg] 01/12/2018 8:58:55 INTRAVASCULAR DIASTOLIC 62.0 mm[Hg] 01/12/2018 8:58:55 BODY TEMPERATURE 97.9 [degF] 01/12/2018 8:58:55 HEART BEAT 89.0 {beats}/min 01/12/2018 8:58:55 INTRAVASCULAR SYSTOLIC 98.0 mm[Hg] 01/12/2018 11:36:05 INTRAVASCULAR DIASTOLIC 56.0 mm[Hg] 01/12/2018 11:36:05 HEART BEAT 73.0 {beats}/min 01/12/2018 11:36:05 INTRAVASCULAR SYSTOLIC 90.0 mm[Hg] 01/12/2018 15:27:14 INTRAVASCULAR DIASTOLIC 50.0 mm[Hg] 01/12/2018 15:27:14 HEART BEAT 98.0 {beats}/min 01/12/2018 15:27:14 INTRAVASCULAR SYSTOLIC 92.0 mm[Hg] 01/12/2018 19:14:00 INTRAVASCULAR DIASTOLIC 54.0 mm[Hg] 01/12/2018 19:14:00 BODY TEMPERATURE 98.2 [degF] 01/12/2018 19:14:00 RESPIRATION RATE 18.0 /min 01/12/2018 19:14:00 HEART BEAT 82.0 {beats}/min 01/12/2018 19:14:00 OXYGEN SATURATION 96.0 % 01/12/2018 19:14:00 RESPIRATION RATE 18.0 /min 01/12/2018 22:43:01 INTRAVASCULAR SYSTOLIC 90.0 mm[Hg] 01/12/2018 22:43:01 INTRAVASCULAR DIASTOLIC 52.0 mm[Hg] 01/12/2018 22:43:01 BODY TEMPERATURE 97.8 [degF] 01/12/2018 22:43:01 HEART BEAT 84.0 {beats}/min 01/12/2018 22:43:01 OXYGEN SATURATION 96.0 % 01/13/2018 4:01:00 RESPIRATION RATE 16.0 /min 01/13/2018 4:44:18 INTRAVASCULAR SYSTOLIC 102.0 mm[Hg] 01/13/2018 4:44:18 INTRAVASCULAR DIASTOLIC 55.0 mm[Hg] 01/13/2018 4:44:18 BODY TEMPERATURE 97.9 [degF] 01/13/2018 4:44:18 HEART BEAT 88.0 {beats}/min 01/13/2018 4:44:18 INTRAVASCULAR SYSTOLIC 112.0 mm[Hg] 01/13/2018 7:32:35 INTRAVASCULAR DIASTOLIC 60.0 mm[Hg] 01/13/2018 7:32:35 HEART BEAT 86.0 {beats}/min 01/13/2018 7:32:35 PAIN LEVEL 0.0 {score} 01/13/2018 7:33:52 RESPIRATION RATE 18.0 /min 01/13/2018 10:29:52 INTRAVASCULAR SYSTOLIC 112.0 mm[Hg] 01/13/2018 10:29:52 INTRAVASCULAR DIASTOLIC 60.0 mm[Hg] 01/13/2018 10:29:52 BODY TEMPERATURE 97.9 [degF] 01/13/2018 10:29:52 HEART BEAT 86.0 {beats}/min 01/13/2018 10:29:52 INTRAVASCULAR SYSTOLIC 117.0 mm[Hg] 01/13/2018 11:16:02 INTRAVASCULAR DIASTOLIC 65.0 mm[Hg] 01/13/2018 11:16:02 HEART BEAT 84.0 {beats}/min 01/13/2018 11:16:02 INTRAVASCULAR SYSTOLIC 90.0 mm[Hg] 01/13/2018 15:15:57 INTRAVASCULAR DIASTOLIC 55.0 mm[Hg] 01/13/2018 15:15:57 HEART BEAT 90.0 {beats}/min 01/13/2018 15:15:57 INTRAVASCULAR SYSTOLIC 109.0 mm[Hg] 01/13/2018 18:01:00 INTRAVASCULAR DIASTOLIC 58.0 mm[Hg] 01/13/2018 18:01:00 BODY TEMPERATURE 98.2 [degF] 01/13/2018 18:01:00 RESPIRATION RATE 18.0 /min 01/13/2018 18:01:00 HEART BEAT 86.0 {beats}/min 01/13/2018 18:01:00 OXYGEN SATURATION 95.0 % 01/13/2018 18:01:00 RESPIRATION RATE 18.0 /min 01/13/2018 21:39:12 INTRAVASCULAR SYSTOLIC 109.0 mm[Hg] 01/13/2018 21:39:12 INTRAVASCULAR DIASTOLIC 58.0 mm[Hg] 01/13/2018 21:39:12 BODY TEMPERATURE 97.3 [degF] 01/13/2018 21:39:12 HEART BEAT 86.0 {beats}/min 01/13/2018 21:39:12 OXYGEN SATURATION 95.0 % 01/14/2018 4:05:00 RESPIRATION RATE 16.0 /min 01/14/2018 4:29:19 INTRAVASCULAR SYSTOLIC 98.0 mm[Hg] 01/14/2018 4:29:19 INTRAVASCULAR DIASTOLIC 61.0 mm[Hg] 01/14/2018 4:29:19 BODY TEMPERATURE 98.0 [degF] 01/14/2018 4:29:19 HEART BEAT 89.0 {beats}/min 01/14/2018 4:29:19 PAIN LEVEL 0.0 {score} 01/14/2018 7:51:03 INTRAVASCULAR SYSTOLIC 114.0 mm[Hg] 01/14/2018 7:51:14 INTRAVASCULAR DIASTOLIC 54.0 mm[Hg] 01/14/2018 7:51:14 HEART BEAT 98.0 {beats}/min 01/14/2018 7:51:14 RESPIRATION RATE 18.0 /min 01/14/2018 9:47:38 BODY TEMPERATURE 97.6 [degF] 01/14/2018 9:47:38 INTRAVASCULAR SYSTOLIC 109.0 mm[Hg] 01/14/2018 11:12:40 INTRAVASCULAR DIASTOLIC 72.0 mm[Hg] 01/14/2018 11:12:40 HEART BEAT 95.0 {beats}/min 01/14/2018 11:12:40 INTRAVASCULAR SYSTOLIC 115.0 mm[Hg] 01/14/2018 15:10:27 INTRAVASCULAR DIASTOLIC 52.0 mm[Hg] 01/14/2018 15:10:27 HEART BEAT 89.0 {beats}/min 01/14/2018 15:10:27 RESPIRATION RATE 18.0 /min 01/14/2018 18:01:34 INTRAVASCULAR SYSTOLIC 96.0 mm[Hg] 01/14/2018 18:01:34 INTRAVASCULAR DIASTOLIC 57.0 mm[Hg] 01/14/2018 18:01:34 BODY TEMPERATURE 97.4 [degF] 01/14/2018 18:01:34 HEART BEAT 80.0 {beats}/min 01/14/2018 18:01:34 RESPIRATION RATE 17.0 /min 01/15/2018 1:35:49 INTRAVASCULAR SYSTOLIC 97.0 mm[Hg] 01/15/2018 1:35:49 INTRAVASCULAR DIASTOLIC 64.0 mm[Hg] 01/15/2018 1:35:49 BODY TEMPERATURE 97.3 [degF] 01/15/2018 1:35:49 HEART BEAT 82.0 {beats}/min 01/15/2018 1:35:49 INTRAVASCULAR SYSTOLIC 127.0 mm[Hg] 01/15/2018 7:57:37 INTRAVASCULAR DIASTOLIC 73.0 mm[Hg] 01/15/2018 7:57:37 HEART BEAT 86.0 {beats}/min 01/15/2018 7:57:37 PAIN LEVEL 0.0 {score} 01/15/2018 7:57:53 RESPIRATION RATE 18.0 /min 01/15/2018 9:32:55 BODY TEMPERATURE 97.6 [degF] 01/15/2018 9:32:55 INTRAVASCULAR SYSTOLIC 112.0 mm[Hg] 01/15/2018 10:20:43 INTRAVASCULAR DIASTOLIC 62.0 mm[Hg] 01/15/2018 10:20:43 HEART BEAT 71.0 {beats}/min 01/15/2018 10:20:43 INTRAVASCULAR SYSTOLIC 113.0 mm[Hg] 01/15/2018 15:33:03 INTRAVASCULAR DIASTOLIC 60.0 mm[Hg] 01/15/2018 15:33:03 HEART BEAT 84.0 {beats}/min 01/15/2018 15:33:03 RESPIRATION RATE 18.0 /min 01/15/2018 17:10:11 INTRAVASCULAR SYSTOLIC 113.0 mm[Hg] 01/15/2018 17:10:11 INTRAVASCULAR DIASTOLIC 60.0 mm[Hg] 01/15/2018 17:10:11 BODY TEMPERATURE 97.6 [degF] 01/15/2018 17:10:11 HEART BEAT 84.0 {beats}/min 01/15/2018 17:10:11 RESPIRATION RATE 18.0 /min 01/16/2018 0:23:26 INTRAVASCULAR SYSTOLIC 110.0 mm[Hg] 01/16/2018 0:23:26 INTRAVASCULAR DIASTOLIC 66.0 mm[Hg] 01/16/2018 0:23:26 BODY TEMPERATURE 98.2 [degF] 01/16/2018 0:23:26 HEART BEAT 80.0 {beats}/min 01/16/2018 0:23:26 OXYGEN SATURATION 99.0 % 01/16/2018 0:41:00 PAIN LEVEL 0.0 {score} 01/16/2018 7:42:57 INTRAVASCULAR SYSTOLIC 121.0 mm[Hg] 01/16/2018 7:43:06 INTRAVASCULAR DIASTOLIC 82.0 mm[Hg] 01/16/2018 7:43:06 HEART BEAT 91.0 {beats}/min 01/16/2018 7:43:06 BODY WEIGHT (MEASURED) 89.4 [lb_av] 01/16/2018 9:36:00 RESPIRATION RATE 18.0 /min 01/16/2018 10:46:10 BODY TEMPERATURE 97.6 [degF] 01/16/2018 10:46:10 INTRAVASCULAR SYSTOLIC 115.0 mm[Hg] 01/16/2018 15:00:04 INTRAVASCULAR DIASTOLIC 62.0 mm[Hg] 01/16/2018 15:00:04 HEART BEAT 83.0 {beats}/min 01/16/2018 15:00:04 RESPIRATION RATE 19.0 /min 01/16/2018 17:11:46 INTRAVASCULAR SYSTOLIC 109.0 mm[Hg] 01/16/2018 17:11:46 INTRAVASCULAR DIASTOLIC 65.0 mm[Hg] 01/16/2018 17:11:46 BODY TEMPERATURE 98.9 [degF] 01/16/2018 17:11:46 HEART BEAT 63.0 {beats}/min 01/16/2018 17:11:46 RESPIRATION RATE 18.0 /min 01/17/2018 2:36:33 INTRAVASCULAR SYSTOLIC 99.0 mm[Hg] 01/17/2018 2:36:33 INTRAVASCULAR DIASTOLIC 60.0 mm[Hg] 01/17/2018 2:36:33 BODY TEMPERATURE 98.5 [degF] 01/17/2018 2:36:33 HEART BEAT 84.0 {beats}/min 01/17/2018 2:36:33 OXYGEN SATURATION 95.0 % 01/17/2018 3:19:00 PAIN LEVEL 0.0 {score} 01/17/2018 7:26:45 INTRAVASCULAR SYSTOLIC 113.0 mm[Hg] 01/17/2018 7:26:54 INTRAVASCULAR DIASTOLIC 65.0 mm[Hg] 01/17/2018 7:26:54 HEART BEAT 84.0 {beats}/min 01/17/2018 7:26:54 RESPIRATION RATE 18.0 /min 01/17/2018 12:54:32 BODY TEMPERATURE 97.6 [degF] 01/17/2018 12:54:32 INTRAVASCULAR SYSTOLIC 123.0 mm[Hg] 01/17/2018 13:34:54 INTRAVASCULAR DIASTOLIC 53.0 mm[Hg] 01/17/2018 13:34:54 HEART BEAT 86.0 {beats}/min 01/17/2018 13:34:54 INTRAVASCULAR SYSTOLIC 99.0 mm[Hg] 01/17/2018 15:05:09 INTRAVASCULAR DIASTOLIC 60.0 mm[Hg] 01/17/2018 15:05:09 HEART BEAT 88.0 {beats}/min 01/17/2018 15:05:09 INTRAVASCULAR SYSTOLIC 97.0 mm[Hg] 01/17/2018 15:50:00 INTRAVASCULAR DIASTOLIC 47.0 mm[Hg] 01/17/2018 15:50:00 BODY TEMPERATURE 98.2 [degF] 01/17/2018 15:50:00 RESPIRATION RATE 18.0 /min 01/17/2018 15:50:00 HEART BEAT 82.0 {beats}/min 01/17/2018 15:50:00 OXYGEN SATURATION 96.0 % 01/17/2018 15:50:00 RESPIRATION RATE 18.0 /min 01/17/2018 20:58:57 INTRAVASCULAR SYSTOLIC 97.0 mm[Hg] 01/17/2018 20:58:57 INTRAVASCULAR DIASTOLIC 47.0 mm[Hg] 01/17/2018 20:58:57 BODY TEMPERATURE 98.1 [degF] 01/17/2018 20:58:57 HEART BEAT 82.0 {beats}/min 01/17/2018 20:58:57 RESPIRATION RATE 18.0 /min 01/18/2018 2:45:54 INTRAVASCULAR SYSTOLIC 90.0 mm[Hg] 01/18/2018 2:45:54 INTRAVASCULAR DIASTOLIC 66.0 mm[Hg] 01/18/2018 2:45:54 BODY TEMPERATURE 98.0 [degF] 01/18/2018 2:45:54 HEART BEAT 89.0 {beats}/min 01/18/2018 2:45:54 OXYGEN SATURATION 96.0 % 01/18/2018 3:14:00 INTRAVASCULAR SYSTOLIC 111.0 mm[Hg] 01/18/2018 9:57:02 INTRAVASCULAR DIASTOLIC 56.0 mm[Hg] 01/18/2018 9:57:02 HEART BEAT 111.0 {beats}/min 01/18/2018 9:57:02 PAIN LEVEL 0.0 {score} 01/18/2018 9:58:14 RESPIRATION RATE 18.0 /min 01/18/2018 10:46:59 INTRAVASCULAR SYSTOLIC 111.0 mm[Hg] 01/18/2018 10:46:59 INTRAVASCULAR DIASTOLIC 56.0 mm[Hg] 01/18/2018 10:46:59 BODY TEMPERATURE 98.1 [degF] 01/18/2018 10:46:59 HEART BEAT 111.0 {beats}/min 01/18/2018 10:46:59 INTRAVASCULAR SYSTOLIC 109.0 mm[Hg] 01/18/2018 14:35:17 INTRAVASCULAR DIASTOLIC 43.0 mm[Hg] 01/18/2018 14:35:17 HEART BEAT 89.0 {beats}/min 01/18/2018 14:35:17 INTRAVASCULAR SYSTOLIC 109.0 mm[Hg] 01/18/2018 16:17:00 INTRAVASCULAR DIASTOLIC 43.0 mm[Hg] 01/18/2018 16:17:00 BODY TEMPERATURE 98.6 [degF] 01/18/2018 16:17:00 RESPIRATION RATE 18.0 /min 01/18/2018 16:17:00 HEART BEAT 88.0 {beats}/min 01/18/2018 16:17:00 OXYGEN SATURATION 94.0 % 01/18/2018 16:17:00 RESPIRATION RATE 18.0 /min 01/18/2018 21:52:30 INTRAVASCULAR SYSTOLIC 109.0 mm[Hg] 01/18/2018 21:52:30 INTRAVASCULAR DIASTOLIC 52.0 mm[Hg] 01/18/2018 21:52:30 BODY TEMPERATURE 97.8 [degF] 01/18/2018 21:52:30 HEART BEAT 78.0 {beats}/min 01/18/2018 21:52:30 RESPIRATION RATE 18.0 /min 01/19/2018 3:55:47 INTRAVASCULAR SYSTOLIC 105.0 mm[Hg] 01/19/2018 3:55:47 INTRAVASCULAR DIASTOLIC 59.0 mm[Hg] 01/19/2018 3:55:47 BODY TEMPERATURE 98.8 [degF] 01/19/2018 3:55:47 HEART BEAT 89.0 {beats}/min 01/19/2018 3:55:47 OXYGEN SATURATION 97.0 % 01/19/2018 6:24:00 PAIN LEVEL 0.0 {score} 01/19/2018 6:49:15 INTRAVASCULAR SYSTOLIC 115.0 mm[Hg] 01/19/2018 6:50:30 INTRAVASCULAR DIASTOLIC 66.0 mm[Hg] 01/19/2018 6:50:30 HEART BEAT 86.0 {beats}/min 01/19/2018 6:50:30 RESPIRATION RATE 18.0 /min 01/19/2018 8:26:00 BODY TEMPERATURE 97.2 [degF] 01/19/2018 8:26:00 BODY WEIGHT (MEASURED) 88.0 [lb_av] 01/19/2018 9:24:00 INTRAVASCULAR SYSTOLIC 121.0 mm[Hg] 01/19/2018 10:13:06 INTRAVASCULAR DIASTOLIC 68.0 mm[Hg] 01/19/2018 10:13:06 HEART BEAT 73.0 {beats}/min 01/19/2018 10:13:06 INTRAVASCULAR SYSTOLIC 94.0 mm[Hg] 01/19/2018 14:27:30 INTRAVASCULAR DIASTOLIC 50.0 mm[Hg] 01/19/2018 14:27:30 HEART BEAT 60.0 {beats}/min 01/19/2018 14:27:30 RESPIRATION RATE 16.0 /min 01/19/2018 20:38:35 BODY TEMPERATURE 98.8 [degF] 01/19/2018 20:38:35 HEART BEAT 60.0 {beats}/min 01/19/2018 20:38:35 OXYGEN SATURATION 95.0 % 01/20/2018 0:56:00 RESPIRATION RATE 18.0 /min 01/20/2018 1:06:15 INTRAVASCULAR SYSTOLIC 110.0 mm[Hg] 01/20/2018 1:06:15 INTRAVASCULAR DIASTOLIC 67.0 mm[Hg] 01/20/2018 1:06:15 BODY TEMPERATURE 96.5 [degF] 01/20/2018 1:06:15 HEART BEAT 87.0 {beats}/min 01/20/2018 1:06:15 PAIN LEVEL 0.0 {score} 01/20/2018 7:00:30 INTRAVASCULAR SYSTOLIC 115.0 mm[Hg] 01/20/2018 7:02:25 INTRAVASCULAR DIASTOLIC 83.0 mm[Hg] 01/20/2018 7:02:25 HEART BEAT 86.0 {beats}/min 01/20/2018 7:02:25 RESPIRATION RATE 18.0 /min 01/20/2018 8:51:39 BODY TEMPERATURE 97.6 [degF] 01/20/2018 8:51:39 INTRAVASCULAR SYSTOLIC 123.0 mm[Hg] 01/20/2018 12:04:19 INTRAVASCULAR DIASTOLIC 69.0 mm[Hg] 01/20/2018 12:04:19 HEART BEAT 74.0 {beats}/min 01/20/2018 12:04:19 INTRAVASCULAR SYSTOLIC 85.0 mm[Hg] 01/20/2018 14:50:07 INTRAVASCULAR DIASTOLIC 53.0 mm[Hg] 01/20/2018 14:50:07 HEART BEAT 93.0 {beats}/min 01/20/2018 14:50:07 INTRAVASCULAR SYSTOLIC 101.0 mm[Hg] 01/20/2018 17:07:00 INTRAVASCULAR DIASTOLIC 51.0 mm[Hg] 01/20/2018 17:07:00 BODY TEMPERATURE 98.1 [degF] 01/20/2018 17:07:00 RESPIRATION RATE 18.0 /min 01/20/2018 17:07:00 HEART BEAT 88.0 {beats}/min 01/20/2018 17:07:00 OXYGEN SATURATION 97.0 % 01/20/2018 17:07:00 RESPIRATION RATE 18.0 /min 01/20/2018 20:24:44 INTRAVASCULAR SYSTOLIC 101.0 mm[Hg] 01/20/2018 20:24:44 INTRAVASCULAR DIASTOLIC 51.0 mm[Hg] 01/20/2018 20:24:44 BODY TEMPERATURE 97.6 [degF] 01/20/2018 20:24:44 HEART BEAT 88.0 {beats}/min 01/20/2018 20:24:44 OXYGEN SATURATION 96.0 % 01/21/2018 0:43:00 RESPIRATION RATE 18.0 /min 01/21/2018 0:46:58 INTRAVASCULAR SYSTOLIC 108.0 mm[Hg] 01/21/2018 0:46:58 INTRAVASCULAR DIASTOLIC 69.0 mm[Hg] 01/21/2018 0:46:58 BODY TEMPERATURE 98.2 [degF] 01/21/2018 0:46:58 HEART BEAT 86.0 {beats}/min 01/21/2018 0:46:58 INTRAVASCULAR SYSTOLIC 129.0 mm[Hg] 01/21/2018 7:43:57 INTRAVASCULAR DIASTOLIC 85.0 mm[Hg] 01/21/2018 7:43:57 HEART BEAT 105.0 {beats}/min 01/21/2018 7:43:57 PAIN LEVEL 0.0 {score} 01/21/2018 7:44:43 RESPIRATION RATE 17.0 /min 01/21/2018 8:38:41 BODY TEMPERATURE 98.2 [degF] 01/21/2018 8:38:41 OXYGEN SATURATION 96.0 % 01/21/2018 8:39:00 INTRAVASCULAR SYSTOLIC 129.0 mm[Hg] 01/21/2018 11:58:34 INTRAVASCULAR DIASTOLIC 85.0 mm[Hg] 01/21/2018 11:58:34 HEART BEAT 105.0 {beats}/min 01/21/2018 11:58:34 INTRAVASCULAR SYSTOLIC 124.0 mm[Hg] 01/21/2018 16:36:23 INTRAVASCULAR DIASTOLIC 54.0 mm[Hg] 01/21/2018 16:36:23 HEART BEAT 92.0 {beats}/min 01/21/2018 16:36:23 RESPIRATION RATE 18.0 /min 01/21/2018 20:25:05 INTRAVASCULAR SYSTOLIC 102.0 mm[Hg] 01/21/2018 20:25:05 INTRAVASCULAR DIASTOLIC 57.0 mm[Hg] 01/21/2018 20:25:05 BODY TEMPERATURE 98.1 [degF] 01/21/2018 20:25:05 HEART BEAT 92.0 {beats}/min 01/21/2018 20:25:05 INTRAVASCULAR SYSTOLIC 102.0 mm[Hg] 01/21/2018 21:27:00 INTRAVASCULAR DIASTOLIC 57.0 mm[Hg] 01/21/2018 21:27:00 BODY TEMPERATURE 97.6 [degF] 01/21/2018 21:27:00 RESPIRATION RATE 18.0 /min 01/21/2018 21:27:00 HEART BEAT 82.0 {beats}/min 01/21/2018 21:27:00 OXYGEN SATURATION 96.0 % 01/21/2018 21:27:00 RESPIRATION RATE 16.0 /min 01/22/2018 2:41:30 INTRAVASCULAR SYSTOLIC 90.0 mm[Hg] 01/22/2018 2:41:30 INTRAVASCULAR DIASTOLIC 64.0 mm[Hg] 01/22/2018 2:41:30 BODY TEMPERATURE 98.2 [degF] 01/22/2018 2:41:30 HEART BEAT 80.0 {beats}/min 01/22/2018 2:41:30 OXYGEN SATURATION 96.0 % 01/22/2018 2:53:00 INTRAVASCULAR SYSTOLIC 117.0 mm[Hg] 01/22/2018 8:01:31 INTRAVASCULAR DIASTOLIC 76.0 mm[Hg] 01/22/2018 8:01:31 HEART BEAT 86.0 {beats}/min 01/22/2018 8:01:31 PAIN LEVEL 0.0 {score} 01/22/2018 8:03:20 RESPIRATION RATE 18.0 /min 01/22/2018 8:26:29 BODY TEMPERATURE 98.0 [degF] 01/22/2018 8:26:29 INTRAVASCULAR SYSTOLIC 90.0 mm[Hg] 01/22/2018 15:16:58 INTRAVASCULAR DIASTOLIC 75.0 mm[Hg] 01/22/2018 15:16:58 HEART BEAT 93.0 {beats}/min 01/22/2018 15:16:58 RESPIRATION RATE 18.0 /min 01/22/2018 18:40:55 INTRAVASCULAR SYSTOLIC 93.0 mm[Hg] 01/22/2018 18:40:55 INTRAVASCULAR DIASTOLIC 50.0 mm[Hg] 01/22/2018 18:40:55 BODY TEMPERATURE 98.1 [degF] 01/22/2018 18:40:55 HEART BEAT 92.0 {beats}/min 01/22/2018 18:40:55 RESPIRATION RATE 16.0 /min 01/23/2018 3:47:06 INTRAVASCULAR SYSTOLIC 99.0 mm[Hg] 01/23/2018 3:47:06 INTRAVASCULAR DIASTOLIC 73.0 mm[Hg] 01/23/2018 3:47:06 BODY TEMPERATURE 97.5 [degF] 01/23/2018 3:47:06 HEART BEAT 88.0 {beats}/min 01/23/2018 3:47:06 OXYGEN SATURATION 94.0 % 01/23/2018 3:57:00 PAIN LEVEL 0.0 {score} 01/23/2018 7:12:58 INTRAVASCULAR SYSTOLIC 126.0 mm[Hg] 01/23/2018 7:14:09 INTRAVASCULAR DIASTOLIC 60.0 mm[Hg] 01/23/2018 7:14:09 HEART BEAT 86.0 {beats}/min 01/23/2018 7:14:09 RESPIRATION RATE 18.0 /min 01/23/2018 8:36:07 BODY TEMPERATURE 97.2 [degF] 01/23/2018 8:36:07 BODY WEIGHT (MEASURED) 87.4 [lb_av] 01/23/2018 9:02:00 INTRAVASCULAR SYSTOLIC 133.0 mm[Hg] 01/23/2018 12:00:41 INTRAVASCULAR DIASTOLIC 71.0 mm[Hg] 01/23/2018 12:00:41 HEART BEAT 74.0 {beats}/min 01/23/2018 12:00:41 INTRAVASCULAR SYSTOLIC 93.0 mm[Hg] 01/23/2018 17:07:38 INTRAVASCULAR DIASTOLIC 53.0 mm[Hg] 01/23/2018 17:07:38 HEART BEAT 83.0 {beats}/min 01/23/2018 17:07:38 RESPIRATION RATE 18.0 /min 01/23/2018 18:06:57 INTRAVASCULAR SYSTOLIC 93.0 mm[Hg] 01/23/2018 18:06:57 INTRAVASCULAR DIASTOLIC 53.0 mm[Hg] 01/23/2018 18:06:57 BODY TEMPERATURE 98.2 [degF] 01/23/2018 18:06:57 HEART BEAT 83.0 {beats}/min 01/23/2018 18:06:57 OXYGEN SATURATION 94.0 % 01/24/2018 4:42:00 RESPIRATION RATE 17.0 /min 01/24/2018 6:25:56 INTRAVASCULAR SYSTOLIC 103.0 mm[Hg] 01/24/2018 6:25:56 INTRAVASCULAR DIASTOLIC 57.0 mm[Hg] 01/24/2018 6:25:56 BODY TEMPERATURE 97.4 [degF] 01/24/2018 6:25:56 HEART BEAT 80.0 {beats}/min 01/24/2018 6:25:56 PAIN LEVEL 0.0 {score} 01/24/2018 7:22:02 INTRAVASCULAR SYSTOLIC 112.0 mm[Hg] 01/24/2018 7:22:30 INTRAVASCULAR DIASTOLIC 61.0 mm[Hg] 01/24/2018 7:22:30 HEART BEAT 77.0 {beats}/min 01/24/2018 7:22:30 Immunizations Vaccine Date Status Reason pneumococcal polysaccharide vaccine, 23 valent 01/04/2018 Refused Resident Refused Bacillus Calmet[place] vaccine 01/03/2018 Completed Social History Smoking Status Start Date End Date Unknown if ever smoked 01/24/2018 18:53:03
--- NOTE | 2018-10-09 18:57 | Diagnostic Imaging Report ---
Radiographs of the right hand 3 views. Radiographs of the right wrist 3 views. HISTORY: Pain. Fall COMPARISON: None available. FINDINGS: Bones: No acute displaced fracture. Osseous alignment is within normal limits. Joints: Scattered degenerative change. Soft tissues: Soft tissue swelling. No radiopaque foreign body. IMPRESSION: Scattered degenerative change and soft tissue swelling about the right wrist and right hand. Signed by: Dr. Kg Beasley M.D. on 10/09/2018 6:53 PM
--- NOTE | 2018-10-09 19:16 | Diagnostic Imaging Report ---
Examination: Single AP view of the chest. COMPARISON: None INDICATION: Fall DISCUSSION: Exam quality: Limited exam given portable technique and rotation. Lungs: Airspace opacities and volume loss within the right hemithorax. Relative hyperinflation of the left hemithorax. Pleura: Blunting of the costophrenic angles. No pneumothorax. Heart and mediastinum: Cardiomediastinal silhouette is rightward deviated. Prominent soft tissue density along the right heart border. Bones and soft tissues: No acute bony abnormalities. Scattered degenerative changes. Degenerative changes in the thoracic spine. IMPRESSION: 1. Emphysematous changes with chronic scarring in the right hemithorax. 2. Prominent soft tissue density along the right heart border may be related to rotation. Recommend 2 view chest x-ray for further evaluation. Signed by: Sterling Turpin MD on 10/09/2018 7:12 PM
--- NOTE | 2018-10-09 19:31 | Diagnostic Imaging Report ---
ADDENDUM #1 I have reviewed the images and agree with findings in the preliminary report. Signed by: Dr. Fatimah Wallis M.D. on 10/09/2018 8:04 PM ORIGINAL REPORT Exam: Head CT without contrast History:Fall presumably from standing Comparison studies: None Technique: Axial images were obtained from the skull base to the vertex. Coronal and sagittal images reconstructed from the axial data. Dose modulation, iterative reconstruction, and/or weight based adjustment of the mA/kV was utilized to reduce the radiation dose to as low as reasonably achievable. Intravenous contrast: None Findings: Exam quality: Somewhat limited secondary to motion artifacts. Scalp/skull: Small right frontal scalp hematoma and laceration. Extra-axial spaces: No masses. No fluid collections. Brain sulci: Mildly prominent. Ventricles: Mild compensatory dilatation. No hydrocephalus. Parenchyma: Scattered hypodensities in the supratentorial white matter are small vessel ischemic changes. No masses, hemorrhage, acute or chronic cortical vascular insults. Sellar/suprasellar region: No abnormalities. Craniocervical junction: Patent foramen magnum. No Chiari one malformation. Incidental findings: Atherosclerotic calcifications in the carotid siphons . Impression: No acute abnormalities. Chronic findings: 1. Mild generalized volume loss. 2. Mild supratentorial white matter small vessel ischemic changes. A preliminary report was provided by Dr. Turpin on 10/09/2018 7:27 PM. Signed by: Sterling Turpin MD on 10/09/2018 7:27 PM
--- NOTE | 2018-10-09 19:40 | Diagnostic Imaging Report ---
ADDENDUM #1 I have reviewed the images and agree with findings in the preliminary report. Signed by: Dr. Fatimah Wallis M.D. on 10/09/2018 7:57 PM ORIGINAL REPORT Exam: Cervical spine CT without contrast History: Fall, pain Comparison studies: None Technique: Axial images were obtained from the cervical spine. Coronal and sagittal images reconstructed from the axial data. Dose modulation, iterative reconstruction, and/or weight based adjustment of the mA/kV was utilized to reduce the radiation dose to as low as reasonably achievable. Intravenous contrast: None Findings: Airway: Patent. Fractures: None. Soft tissues: No gross abnormalities. Atlantoaxial articulation: Intact. Alignment: Exaggerated cervical lordosis. No scoliosis. Cervicomedullary junction: No abnormalities. Patent foramen magnum. Vertebrae: Diffuse bony demineralization. No infection or neoplasm. Degenerative changes: Mild multilevel degenerative changes without significant (moderate to severe) canal or foraminal stenoses. Incidental findings: Scarring and cylindrical bronchiectasis in the right upper lobe. IMPRESSION: 1. No abnormalities. 2. Cannot adequately evaluate for ligament, spinal cord and or vascular abnormalities. 3. Diffuse bony demineralization and mild multilevel cervical spondylosis. A preliminary report was provided by Dr. Turpin on 10/09/2018 7:36 PM. Signed by: Sterling Turpin MD on 10/09/2018 7:37 PM
--- NOTE | 2018-10-09 20:05 | Diagnostic Imaging Report ---
History:Trauma, fall. Comparison studies: None Technique: Axial images were obtained through the maxillofacial region. Coronal and sagittal images reconstructed from the axial data. Dose modulation, iterative reconstruction, and/or weight based adjustment of the mA/kV was utilized to reduce the radiation dose to as low as reasonably achievable. Intravenous contrast: None Findings: Soft tissues: No abnormalities. Bones: No fractures. Degenerative changes in bilateral temporomandibular joints. Multifocal dental caries and endodontal disease, the activity of which is to be due to migraine clinically. Orbits: Globes: Intact Extra or intraconal abnormalities: None. Paranasal sinuses: Mild mucosal thickening in hypoplastic left maxillary sinus. IMPRESSION: No acute posttraumatic intracranial abnormality. Signed by: Dr. Fatimah Wallis M.D. on 10/09/2018 8:01 PM
[2018-10-09 20:23] LABS: BASOPHILS % 0.2 % (0.0-1.0); EOSINOPHILS # (AUTO) 0.1 (0.0-0.4); EOSINOPHILS % 1.7 % (0.0-6.0); HEMATOCRIT 30.8 % (34.2-44.1); HEMOGLOBIN 8.8 g/dL (12.0-16.0); LYMPHOCYTES % 15.8 % (18.0-39.1); MEAN CORPUSCULAR HEMOGLOBIN 23.4 pg (28-32); MEAN CORPUSCULAR HGB CONC 28.6 g/dL (31-35); MEAN CORPUSCULAR VOLUME 81.9 fL (81-99); MONOCYTES # (AUTO) 0.7 (0.2-0.8); MONOCYTES % 10.6 % (4.4-11.3); NEUTROPHILS # (AUTO) 4.6 (2.1-6.9); NEUTROPHILS % 71.4 % (38.7-80.0); PLATELET COUNT 261 x10e3/uL (140-360); RED BLOOD COUNT 3.76 x10e6/uL (3.6-5.1); RED CELL DISTRIBUTION WIDTH 18.1 % (11.7-14.4)
[2018-10-09 20:28] LABS: INR 1.04; PROTHROMBIN TIME 14.1 seconds (11.9-14.5)
[2018-10-09 20:29] LABS: PARTIAL THROMBOPLASTIN TIME 27.9 seconds (23.8-35.5)
[2018-10-09 20:38] LABS: ALANINE AMINOTRANSFERASE 7 IU/L (0-55); ALBUMIN/GLOBULIN RATIO 0.8 (0.8-2.0); ALKALINE PHOSPHATASE 72 IU/L (40-150); ANION GAP 11.1 mmol/L (8-16); BLOOD UREA NITROGEN 19 mg/dL (7-26); BUN/CREATININE RATIO 25 (6-25); CALCIUM 9.1 mg/dL (8.4-10.2); CARBON DIOXIDE 36 mmol/L (22-29); CHLORIDE 94 mmol/L (98-107); CREATINE KINASE 49 IU/L (29-168); CREATININE, SERUM 0.76 mg/dL (0.57-1.11); EST GLOMERULAR FILTRATION RATE > 60 ML/MIN (60-); GLUCOSE 94 mg/dL (74-118); POTASSIUM 4.1 mmol/L (3.5-5.1); SODIUM 137 mmol/L (136-145)
[2018-10-09 20:48] LABS: CLARITY,URINE HAZY (CLEAR); COLOR,URINE YELLOW (YELLOW); LEUKOCYTE ESTERASE ,URINE 1+ (NEGATIVE); NITRITE,URINE NEGATIVE (NEGATIVE); PROTEIN,URINE DIPSTICK NEGATIVE (NEGATIVE)
[2018-10-09 20:49] LABS: BILIRUBIN,URINE NEGATIVE (NEGATIVE); KETONES,URINE NEGATIVE (NEGATIVE); URINE UROBILINOGEN 0.2 mg/dL (0.2 - 1)
[2018-10-09 20:52] LABS: HYPOCHROMASIA MODERATE; LYMPHOCYTES % (MANUAL) 9 % (19-48); METAMYELOCYTES % (MANUAL) 1 % (0-0); MONOCYTES % (MANUAL) 6 % (3.4-9.0); NEUTROPHILS % (MANUAL) 82 % (40-74)
[2018-10-09 20:53] LABS: PLATELET ESTIMATE ADEQUATE; PLATELET MORPHOLOGY COMMENT NORMAL; RBC MORPHOLOGY COMMENT NORMAL
[2018-10-09 21:01] LABS: BACTERIA,URINE MODERATE /HPF; EPITHELIAL CELLS,URINE MODERATE /LPF; MUCUS,URINE FEW (RARE)
[2018-10-09] MEDS ORDERED: CEFTRIAXONE SOD 1 GM/NS 50 ML 50 ML IV ONE (21:45)
--- NOTE | 2018-10-09 22:14 | Diagnostic Imaging Report ---
EXAMINATION: PA and lateral views of the chest. COMPARISON: 10/09/2018 CLINICAL HISTORY: Fall DISCUSSION: Lines/tubes: None. Lungs: Emphysematous change. Chronic interstitial change. Lower lung atelectasis. Pleura: Bilateral effusions, greater on the right. Heart and mediastinum: The cardiomediastinal silhouette is normal. Bones and soft tissues: No acute bony abnormalities. IMPRESSION: Emphysematous and chronic interstitial change. Bilateral effusions with adjacent atelectasis, greater on the right. Signed by: Dr. Wilberto Rucker M.D. on 10/09/2018 10:11 PM
[2018-10-10] VITALS (9 sets, daily range): BP systolic 84–120; BP diastolic 51–65
--- OUTSIDE RECORDS SUMMARY | 2018-10-10 00:51 | XMS REPORT | Clinical Summary ---
Author Author [employer] Organization [employer] Address Unknown Phone Unavailable Care Team Providers Care Chief Recordist Name Role Phone Barrett Reyna MD PCP [...] in adult; Atrial fibrillation with RVR 12/29/2017 [facility] General Surgery - Encounter 01/03/2018 Radha Ventura, NEY 12/17/2017 Patient Quality Outreach Michelle Beltran MD Yerramadha, Muralidhar Reddy, MD Atrial fibrillation with RVR (Primary Dx); Paroxysmal atrial fibrillation; Acute systolic congestive heart failure; Hyperkalemia; Acute on chronic combined systolic and diastolic congestive heart failure 12/15/2017 [facility] Internal Medicine - Encounter 12/17/2017 after 10/09/2017 Social History Date Tobacco Use Types Packs/Day [...] MMODE SPECTRAL 11:05 AM CDT COLOR DOPPLER ([id number]) TROPONIN Timed 12/15/2017 9:40 PM CDT TROPONIN [...] 12-LEAD STAT 12/15/2017 1:00 PM CDT after 10/09/2017 Results * CT Chest W Contrast (01/03/2018 [...] effusion 4. No hilar mass is identified [id number] Procedure Note Hm Interface, Radiology Results Incoming [...] effusion 4. No hilar mass is identified [id number] Performing Organization Address [facility]/Zipcode Phone Number Trippy Bandz [address] [place] [address] * Smear review (01/03/2018 4:57 AM CDT) Platelet slide review Chapo slt decr [facility] DEPARTMENT OF PATHOLOGY AND GENOMIC MEDICINE Performing Organization Address [facility]/[place] Phone Number [address] [place] [address] PATHOLOGY AND GENOMIC MEDICINE * Estimated GFR (01/03/2018 4:57 AM CDT) Only the most recent of 5 results within the time period is included. GFR Non Af Amer >90 mL/min/1.73 m2 [facility] DEPARTMENT OF PATHOLOGY AND GENOMIC MEDICINE GFR Af Amer >90 mL/min/1.73 m2 [facility] DEPARTMENT OF Comment: PATHOLOGY AND Chronic kidney [...] Americans. Specimen Plasma specimen Performing Organization Address [facility]/[place] Phone Number [address] [place] [address] PATHOLOGY AND GENOMIC MEDICINE * CBC with platelet and differential (01/03/2018 4:57 AM CDT) Only the most recent of 5 results within the time period is included. WBC 4.55 4.50 - 11.00 k/uL [facility] DEPARTMENT OF PATHOLOGY AND GENOMIC MEDICINE RBC 4.20 4.20 - 5.50 m/uL [facility] DEPARTMENT OF PATHOLOGY AND GENOMIC MEDICINE HGB 11.9 (L) 12.0 - 16.0 g/dL [facility] DEPARTMENT OF PATHOLOGY AND GENOMIC MEDICINE HCT 39.8 37.0 - 47.0 % [facility] DEPARTMENT OF PATHOLOGY AND GENOMIC MEDICINE MCV 94.8 82.0 - 100.0 fL [facility] DEPARTMENT OF PATHOLOGY AND GENOMIC MEDICINE MCH 28.3 27.0 - 34.0 pg [facility] DEPARTMENT OF PATHOLOGY AND GENOMIC MEDICINE MCHC 29.9 (L) 31.0 - 37.0 g/dL [facility] DEPARTMENT OF PATHOLOGY AND GENOMIC MEDICINE RDW - SD 50.9 37.0 - 55.0 fL [facility] DEPARTMENT OF PATHOLOGY AND GENOMIC MEDICINE MPV 10.1 8.8 - 13.2 fL [facility] DEPARTMENT OF PATHOLOGY AND GENOMIC MEDICINE Platelet count 148 (L) 150 - 400 k/uL [facility] DEPARTMENT OF PATHOLOGY AND GENOMIC MEDICINE Nucleated RBC 0.00 /100 WBC [facility] DEPARTMENT OF PATHOLOGY AND GENOMIC MEDICINE Neutrophils 64.8 39.0 - 69.0 % [facility] DEPARTMENT OF PATHOLOGY AND GENOMIC MEDICINE Lymphocytes 23.3 (L) 25.0 - 45.0 % [facility] DEPARTMENT OF PATHOLOGY AND GENOMIC MEDICINE Monocytes 10.3 (H) 0.0 - 10.0 % [facility] DEPARTMENT OF PATHOLOGY AND GENOMIC MEDICINE Eosinophils 0.7 0.0 - 5.0 % [facility] OF PATHOLOGY AND GENOMIC MEDICINE Basophils 0.7 0.0 - 1.0 % [facility] DEPARTMENT OF PATHOLOGY AND GENOMIC MEDICINE Specimen Blood Performing Organization Address City/State/Zipcode Phone Number [facility] [address] [place] [address] PATHOLOGY AND GENOMIC MEDICINE * Basic metabolic panel (01/03/2018 4:57 AM CDT) Only the most recent of 3 results within the time period is included. Sodium 132 (L) 135 - 148 mEq/L [facility] DEPARTMENT OF PATHOLOGY AND GENOMIC MEDICINE Potassium 4.0 3.5 - 5.0 mEq/L [facility] DEPARTMENT OF PATHOLOGY AND GENOMIC MEDICINE Chloride 94 (L) 98 - 112 mEq/L [facility] DEPARTMENT OF PATHOLOGY AND GENOMIC MEDICINE CO2 24 24 - 31 mEq/L [facility] DEPARTMENT OF PATHOLOGY AND GENOMIC MEDICINE Anion gap 14@ANIO 7 - 15 mEq/L [facility] DEPARTMENT OF PATHOLOGY AND GENOMIC MEDICINE BUN 22 8 - 23 mg/dL [facility] DEPARTMENT OF PATHOLOGY AND GENOMIC MEDICINE Creatinine 0.6 0.5 - 0.9 mg/dL [facility] DEPARTMENT OF PATHOLOGY AND GENOMIC MEDICINE Glucose 86 65 - 99 mg/dL [facility] DEPARTMENT OF PATHOLOGY AND GENOMIC MEDICINE Calcium 8.5 (L) 8.8 - 10.2 mg/dL [facility] DEPARTMENT OF PATHOLOGY AND GENOMIC MEDICINE Specimen Plasma specimen Performing Organization Address [facility]/[place] Phone Number [address] [place] [address] PATHOLOGY AND GENOMIC MEDICINE * Vancomycin level, trough (01/01/2018 9:10 PM CDT) Only the most recent of 2 results within the time period is included. Vancomycin, trough 11.3 10.0 - 20.0 ug/mL [facility] DEPARTMENT OF Comment: PATHOLOGY AND Therapeutic Ranges: GENOMIC MEDICINE Peak 30.0 - 40.0 ug/mL Bobnza43.0 - 20.0 ug/mL Specimen Serum Performing Organization Address [facility]/[place] Phone Number [address] [place] [address] PATHOLOGY [facility] GENOMIC [facility] * Venous blood gas (12/30/2017 1:35 AM CDT) pH, venous 7.43 (H) 7.32 - 7.42 [facility] DEPARTMENT OF PATHOLOGY AND GENOMIC MEDICINE pCO2, venous 60 (H) 45 - 51 mmHg [facility] DEPARTMENT OF PATHOLOGY AND GENOMIC MEDICINE pO2, venous 36 25 - 40 mmHg [facility] DEPARTMENT OF PATHOLOGY AND GENOMIC MEDICINE Base excess, venous 13 (H) -2 - 2 meq/L [facility] DEPARTMENT OF PATHOLOGY AND GENOMIC MEDICINE O2 saturation, venous 67 40 - 70 % [facility] DEPARTMENT OF PATHOLOGY AND GENOMIC MEDICINE Bicarbonate, venous 36.4 (H) 21.0 - 28.0 mmol/L [facility] DEPARTMENT OF PATHOLOGY AND GENOMIC MEDICINE FiO2, inspired O2% 100 % [facility] DEPARTMENT OF PATHOLOGY AND GENOMIC MEDICINE Specimen Blood Performing Organization Address [facility]/Zipcode Phone Number [address] [place] [address] PATHOLOGY AND GENOMIC MEDICINE * Blood culture, aerobic & anaerobic (12/29/2017 9:25 PM CDT) Only the most recent of 2 results within the time period is included. Blood culture isolate No growth after 5 days of [facility] DEPARTMENT OF incubation. PATHOLOGY AND Comment: GENOMIC MEDICINE Specimen Information Specimen Source: Blood Specimen Site: Unspecified Specimen Blood Performing Organization Address City/[facility]/Zipcode Phone Number [facility] DEPARTMENT OF [address] [place] [address] PATHOLOGY AND GENOMIC MEDICINE * Lactic acid level, SEPSIS - Now and repeat 2x every 3 hours (12/29/2017 9:05 PM CDT) Only the most recent of 3 results within the time period is included. Lactic acid 2.9 (H) 0.5 - 2.2 mmol/L [facility] DEPARTMENT OF PATHOLOGY AND GENOMIC MEDICINE Specimen Plasma specimen Performing Organization Address [facility]/[place] Phone Number [address] [place] [address] PATHOLOGY AND GENOMIC MEDICINE * B natriuretic peptide (12/29/2017 9:05 PM CDT) Only the most recent of 2 results within the time period is included. BNP 217 (H) 0 - 100 pg/mL [facility] DEPARTMENT OF PATHOLOGY AND GENOMIC MEDICINE Specimen Blood Performing Organization Address [facility]/[place] Phone Number [address] [place] [address] PATHOLOGY AND GENOMIC MEDICINE * XR Chest [...] air collection is suspicious for hiatal hernia. [facility]-[id number] Procedure Note Interface, Radiology Results Incoming - [...] air collection is suspicious for hiatal hernia. [facility]-[id number] Performing Organization Address City/State/Zipcode Phone Number FROILAN [address] [place] [address] * Urinalysis screen and microscopy, with reflex to culture (12/29/2017 4:10 PM CDT) Specimen site Clean catch [facility] DEPARTMENT OF PATHOLOGY AND GENOMIC MEDICINE Color, UA Yellow [facility] DEPARTMENT OF PATHOLOGY AND GENOMIC MEDICINE Appearance, UA Clear [facility] DEPARTMENT OF PATHOLOGY AND GENOMIC MEDICINE Specific gravity, UA 1.011 1.001 - 1.035 [facility] DEPARTMENT OF PATHOLOGY AND GENOMIC MEDICINE pH, UA 6.0 5.0 - 8.5 [facility] DEPARTMENT OF PATHOLOGY AND GENOMIC MEDICINE Protein, UA Negative Negative [facility] DEPARTMENT OF PATHOLOGY AND GENOMIC MEDICINE Glucose, UA Negative Negative [facility] DEPARTMENT OF PATHOLOGY AND GENOMIC MEDICINE Ketones, UA Negative Negative [facility] DEPARTMENT OF PATHOLOGY AND GENOMIC MEDICINE Bilirubin, UA Negative Negative [facility] DEPARTMENT OF PATHOLOGY AND GENOMIC MEDICINE Blood, UA Negative Negative [facility] DEPARTMENT OF PATHOLOGY AND GENOMIC MEDICINE Nitrite, UA Negative Negative [facility] DEPARTMENT OF PATHOLOGY AND GENOMIC MEDICINE Urobilinogen, UA Negative <2.0 [facility] DEPARTMENT OF PATHOLOGY AND GENOMIC MEDICINE Leukocyte esterase, UA Moderate (A) Negative [facility] DEPARTMENT OF PATHOLOGY AND GENOMIC MEDICINE Epithelial cells, UA Many /HPF [facility] DEPARTMENT OF PATHOLOGY AND GENOMIC MEDICINE Round epithelial cells, Many 0 - 1 /HPF [facility] DEPARTMENT OF UA PATHOLOGY AND GENOMIC MEDICINE WBC, UA 6-10 (H) 0 - 4 /HPF [facility] DEPARTMENT OF PATHOLOGY AND GENOMIC MEDICINE RBC, UA 0-5 0 - 5 /HPF [facility] DEPARTMENT OF PATHOLOGY AND GENOMIC MEDICINE Bacteria, UA None seen None seen [facility] DEPARTMENT OF PATHOLOGY AND GENOMIC MEDICINE Yeast, UA None seen [facility] DEPARTMENT OF PATHOLOGY AND GENOMIC MEDICINE Yeast with pseudohyphae, None seen [facility] DEPARTMENT UA PATHOLOGY AND GENOMIC MEDICINE Hyaline casts, UA >21 /LPF [facility] DEPARTMENT OF PATHOLOGY AND GENOMIC MEDICINE Specimen Urine Performing Organization Address [facility]/[place] Phone Number [address] [place] [id number] PATHOLOGY AND GENOMIC MEDICINE * Gram stain (12/29/2017 4:10 PM CDT) Gram stain result No WBC's or organisms seen. [facility] DEPARTMENT OF Comment: PATHOLOGY AND Specimen Information GENOMIC MEDICINE Specimen Source: Urine Specimen Site: Clean catch Specimen Urine Performing Organization Address [facility] Phone Number [facility] DEPARTMENT OF [address] [place] [address] PATHOLOGY AND GENOMIC MEDICINE * Urine culture (12/29/2017 4:10 PM CDT) Urine culture isolate No growth after 2 days. [facility] DEPARTMENT OF Comment: PATHOLOGY AND Specimen Information GENOMIC MEDICINE Specimen Source: Urine Specimen Site: Clean catch Specimen Urine Performing Organization Address [facility]/[place] Phone Number [facility] DEPARTMENT OF [address] [place] [address] PATHOLOGY AND GENOMIC MEDICINE * Troponin (12/29/2017 4:00 PM CDT) Only the most recent of 4 results within the time period is included. Troponin <0.300 0.000 - 0.300 ng/mL [facility] DEPARTMENT OF Comment: PATHOLOGY AND 0.30 - 1.49 GENOMIC MEDICINE ng/mlMay indicate increased risk of acute coronary syndrome. >=1.5 ng/ml Consistent with acute myocardial infarction. The diagnostic value of a single normal or non-diagnostic result is questionable.Serial samples at 2-6 hour intervals are required to rule out acute myocardial injury. Specimen Plasma specimen Performing Organization Address [facility]/[place] Phone Number [facility] DEPARTMENT [address] [place] [address] PATHOLOGY AND GENOMIC MEDICINE * Creatine kinase, total (CPK) (12/29/2017 4:00 PM CDT) Only the most recent of 2 results within the time period is included. Creatine kinase 38 26 - 192 U/L [facility] DEPARTMENT OF PATHOLOGY AND GENOMIC MEDICINE Specimen Plasma specimen Performing Organization Address [facility]/[place] Phone Number [address] [place] [address] PATHOLOGY AND GENOMIC MEDICINE * Comprehensive metabolic panel (12/29/2017 4:00 PM CDT) Only the most recent of 2 results within the time period is included. Sodium 141 135 - 148 mEq/L [facility] DEPARTMENT OF PATHOLOGY AND GENOMIC MEDICINE Potassium 3.0 (LL) 3.5 - 5.0 mEq/L [facility] DEPARTMENT OF Comment: PATHOLOGY AND Results called to and read GENOMIC MEDICINE back by LUCIAN Philippe/TEODORO at 12/29/2017 16:35 by [id number]. Chloride 91 (L) 98 - 112 mEq/L [facility] DEPARTMENT OF PATHOLOGY AND GENOMIC MEDICINE CO2 36 (H) 24 - 31 mEq/L [facility] DEPARTMENT OF PATHOLOGY AND GENOMIC MEDICINE Anion gap 14@ANIO 7 - 15 mEq/L [facility] DEPARTMENT OF PATHOLOGY AND GENOMIC MEDICINE BUN 25 (H) 8 - 23 mg/dL [facility] DEPARTMENT OF PATHOLOGY AND GENOMIC MEDICINE Creatinine 0.8 0.5 - 0.9 mg/dL [facility] DEPARTMENT OF PATHOLOGY AND GENOMIC MEDICINE Glucose 187 (H) 65 - 99 mg/dL [facility] DEPARTMENT OF PATHOLOGY AND GENOMIC MEDICINE Calcium 9.3 8.8 - 10.2 mg/dL [facility] DEPARTMENT OF PATHOLOGY AND GENOMIC MEDICINE Protein 7.7 6.3 - 8.3 g/dL [facility] DEPARTMENT OF Comment: PATHOLOGY AND GENOMIC MEDICINE 4.6-7.0 g/dL 1 week 4.4-7.6 g/dL 7 months-1year 5.1-7.3 g/dL 1-2 years5.6-7 .5 g/dL >3 years6.0-8 .0 g/dL 18-150 6.3-8.3 g/dL Albumin 3.8 3.5 - 5.0 g/dL [facility] DEPARTMENT OF PATHOLOGY AND GENOMIC MEDICINE A/G ratio 1.0 0.7 - 3.8 [facility] DEPARTMENT OF PATHOLOGY AND GENOMIC MEDICINE Alkaline phosphatase 70 35 - 104 U/L [facility] DEPARTMENT OF PATHOLOGY AND GENOMIC MEDICINE AST 25 10 - 35 U/L [facility] DEPARTMENT OF PATHOLOGY AND GENOMIC MEDICINE ALT 11 5 - 50 U/L [facility] DEPARTMENT OF PATHOLOGY AND GENOMIC MEDICINE Total bilirubin 0.7 0.0 - 1.2 mg/dL [facility] DEPARTMENT OF PATHOLOGY AND GENOMIC MEDICINE Specimen Plasma specimen Performing Organization Address City/State/Zipcode Phone Number [facility] [address] [place] [address] PATHOLOGY AND GENOMIC MEDICINE * ECG 12 [...] leads- Performing Organization Address City/State/Zipcode Phone Number [facility] EVIE [address] [place] [address] * ECG ED Preliminary Interpretation - NOT AN ORDER (12/29/2017 3:18 PM CDT) Only the most recent of 2 results within the time period is included. Narrative Performed At Neda Choi MD 12/30/20171:24 AM ECG ED Preliminary Interpretation - Not an Order Performed by: NEDA CHOI Authorized by: NEDA CHOI ECG reviewed by ED Physician in the absence of a supervisor endless track vehicle: yes Interpretation: Interpretation: abnormal Rate: ECG rate:104 [...] LV EF,BP 58.40 % [facility] [place],d A2C 6.80 cm [facility] [place],d A4C 6.26 cm [facility] [place],s A2C 6.13 cm [facility] [place],s A4C 5.72 cm [facility] LV,s 2.27 [...] Organization Address City/State/Zipcode Phone Number [facility] [address] [place] [address] * XR Chest 1 Vw Portable (12/15/2017 [...] Degenerative changes in the spine and shoulders. [id number] Procedure Note Hm Interface, Radiology Results Incoming [...] Degenerative changes in the spine and shoulders. [facility]-[id number] Performing Organization Address [facility]/[place] Phone Number [facility] [address] [place] [address] * Partial thromboplastin time, activated (12/15/2017 1:28 PM CDT) PTT 26.1 23.0 - 36.0 sec [facility] DEPARTMENT OF Comment: PATHOLOGY AND PTT therapeutic range for GENOMIC MEDICINE unfractionated heparin is 61.0-112.0 seconds which corresponds to Anti-Xa 0.3-0.7 U/ml. Specimen Blood Performing Organization Address [facility]/[place] Phone Number [facility] [place] [id number] [place] [address] [place] [address] PATHOLOGY AND GENOMIC MEDICINE * Prothrombin time with INR (12/15/2017 1:28 PM CDT) Prothrombin time 13.2 12.0 - 15.0 sec [facility] DEPARTMENT OF PATHOLOGY AND GENOMIC MEDICINE INR 1.0 [facility] DEPARTMENT OF Comment: PATHOLOGY AND The International Normalized GENOMIC MEDICINE Ratio (INR) is a therapeutic monitoring tool for patients who are stable on oral anticoagulant therapy. An INR of 2.0-3.0 is suggested for deep vein thrombosis/pulmonary embolism. Specimen Blood Performing Organization Address [facility]/[place] Phone Number [address] [place] [address] PATHOLOGY AND GENOMIC MEDICINE after 10/09/2017 Insurance Payer Benefit Subscriber ID Type Phone Address Plan / Group HUMANA MEDICARE HUMANA xxxxxxxxx PPO MEDICARE PPO/PFFS/E [facility] Advance Directives Patient has advance care planning documents, and code status on file. For more i nformation, please contact: Brant Talamantes [address] [place] [address] Date Inactivated Comments Code Status Date Activated 12/17/2017 5:30 PM Full Code 12/15/2017 5:13 PM Code Status decision reached by: Patient
--- OUTSIDE RECORDS SUMMARY | 2018-10-10 00:52 | XMS REPORT ---
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 Allergies, Adverse Reactions, Alerts This patient has no known allergies or adverse reactions. Medications This patient has no known medications. Results Test Description Test Time Test Comments Text Results Atomic Results Result Comments CHEST 2 VIEWS 2018-10-09 22:09:00 [place] [address] Patient Name: SKYE BALBUENA MR #: [id number] : 1940 Age/Sex: 78/F Req #: [id number] Adm Physician: Ordered by: GARTH EASTON INSPECTING ENGINEER Report #: [id number] Location: ER Room/Bed: Procedure: [id number] DX/CHEST 2 VIEWS Exam Date: 10/09/18 Exam Time: 2150 REPORT STATUS: Signed EXAMINATION: PA and lateral views of the chest. COMPARISON: 10/09/2018 CLINICAL HISTORY: Fall DISCUSSION: Lines/tubes: None. Lungs: Emphysematous change. Chronic interstitial change. Lower lung atelectasis. Pleura: Bilateral effusions, greater on the right. Heart and mediastinum: The cardiomediastinal silhouette is normal. Bones and soft tissues: No acute bony abnormalities. IMPRESSION: Emphysematous and chronic interstitial change. Bilateral effusions with adjacent atelectasis, greater on the right. Signed by: Dr. José Miguel Shen M.D. on 10/09/2018 10:11 PM Dictated By: JOSÉ MIGUEL SHEN MD 10 Transcribed By: CARLY on 10/09/182210 COPY TO: GARTH EASTON NP CT MAXIO FAC/PARANAS WO 2018-10-09 19:57:00 [place] [address] Patient Name: SKYE BALBUENA MR #: [id number] : 1940 Age/Sex: 78/F Req #: [id number] Adm Physician: Ordered by: GARTH EASTON NP Report #: [id number] Location: ER Room/Bed: Procedure: [id number] CT/CT MAXIO FAC/PARANAS WO Exam Date: 10/09/18 Exam Time: 1810 REPORT STATUS: Signed History:Trauma, fall. Comparison studies: None Technique: Axial images were obtained through the maxillofacial region. Coronal and sagittal images reconstructed from the axial data. Dose modulation, iterative reconstruction, and/or weight based adjustment of the mA/kV was utilized to reduce the radiation dose to as low as reasonably achievable. Intravenous contrast: None Findings: Soft tissues: No abnormalities. Bones: No fractures. Degenerative changes in bilateral temporomandibular joints. Multifocal dental caries and endodontal disease, the activity of which is to be due to migraine clinically. Orbits: Globes: Intact Extra or intraconal abnormalities: None. Paranasal sinuses: Mild mucosal thickening in hypoplastic left maxillary sinus. IMPRESSION: No acute posttraumatic intracranial abnormality. Signed by: Dr. Fatimah Wallis M.D. on 10/09/2018 8:01 PM Dictated By: FATIMAH WALLIS MD 00 Transcribed By: CARLY on 10/09/182000 COPY TO: GARTH EASTON NP CT CERVICAL SPINE WO 2018-10-09 19:29:00 [place] [address] Patient Name: SKYE BALBUENA MR #: [id number] : 1940 Age/Sex: 78/F Req #: [id number] Adm Physician: Ordered by: CARRI BLANKENSHIP MD Report #: [id number] Location: ER Room/Bed: Procedure: [id number] CT/CT CERVICAL SPINE WO Exam Date: 10/09/18 Exam Time: 1809 REPORT STATUS: Signed ADDENDUM #1 I have reviewed the images and agree with findings in the preliminary report. Signed by: Dr. Fatimah Wallis M.D. on 10/09/2018 7:57 PM ORIGINAL REPORT Exam: Cervical spine CT without contrast History: Fall, pain Comparison studies: None Technique: Axial images were obtained from the cervical spine. Coronal and sagittal images reconstructed from the axial data. Dose modulation, iterative reconstruction, and/or weight based adjustment of the mA/kV was utilized to reduce the radiation dose to as low as reasonably achievable. Intravenous contrast: None Findings: Airway: Patent. Fractures: None. Soft tissues: No gross abnormalities. Atlantoaxial articulation: Intact. Alignment: Exaggerated cervical lordosis. No scoliosis. Cervicomedullary junction: No abnormalities. Patent foramen magnum. Vertebrae: Diffuse bony demineralization. No infection or neoplasm. Degenerative changes: Mild multilevel degenerative changes without significant (moderate to severe) canal or foraminal stenoses. Incidental findings: Scarring and cylindrical bronchiectasis in the right upper lobe. IMPRESSION: 1. No abnormalities. 2. Cannot adequately evaluate for ligament, spinal cord and or vascular abnormalities. 3. Diffuse bony demineralization and mild multilevel cervical spondylosis. A preliminary report was provided by Dr. Starr on 10/09/2018 7:36 PM. Signed by: Sushant Starr MD on 10/09/2018 7:37 PM Dictated By: SUSHANT STARR MD 56 Transcribed By: CARLY on 10/09/181936 COPY TO: CARRI BLANKENSHIP MD CT BRAIN WO 2018-10-09 19:20:00 [place] [address] Patient Name: SKYE BALBUENA MR #: [id number] : 1940 Age/Sex: 78/F Req #: [id number] [facility] Physician: Ordered by: CARRI BLANKENSHIP MD Report #: [id number] Location: Room/Bed: Procedure: [id number] CT/CT BRAIN WO Exam Date: 10/09/18 Exam Time: 1810 REPORT STATUS: Signed ADDENDUM #1 I have reviewed the images and agree with findings in the preliminary report. Signed by: Dr. Fatimah Wallis M.D. on 10/09/2018 8:04 PM ORIGINAL REPORT Exam: Head CT without contrast History:Fall presumably from standing Comparison studies: None Technique: Axial images were obtained from the skull base to the vertex. Coronal and sagittal images reconstructed from the axial data. Dose modulation, iterative reconstruction, and/or weight based adjustment of the mA/kV was utilized to reduce the radiation dose to as low as reasonably achievable. Intravenous contrast: None Findings: Exam quality: Somewhat limited secondary to motion artifacts. Scalp/skull: Small right frontal scalp hematoma and laceration. Extra-axial spaces: No masses. No fluid collections. Brain sulci: Mildly prominent. Ventricles: Mild compensatory dilatation. No hydrocephalus. Parenchyma: Scattered hypodensities in the supratentorial white matter are small vessel ischemic changes. No masses, hemorrhage, acute or chronic cortical vascular insults. Sellar/suprasellar region: No abnormalities. Craniocervical junction: Patent foramen magnum. No Chiari one malformation. Incidental findings: Atherosclerotic calcifications in the carotid siphons . Impression: No acute abnormalities. Chronic findings: 1. Mild generalized volume loss. 2. Mild supratentorial white matter small vessel ischemic changes. A preliminary report was provided by Dr. Starr on 10/09/2018 7:27 PM. Signed by: Sushant Starr MD on 10/09/2018 7:27 PM Dictated By: SUSHANT STARR MD 03 Transcribed By: CARLY on 10/09/181926 COPY TO: CARRI BLANKENSHIP MD CHEST SINGLE (PORTABLE) 2018-10-09 19:06:00 [place] [address] Patient Name: SKYE BALBUENA MR #: [id number] : 1940 Age/Sex: 78/F Req #: [id number] Adm Physician: Ordered by: GARTH EASTON NP Report #: [id number] Location: Room/Bed: Procedure: [id number] DX/CHEST SINGLE (PORTABLE) Exam Date: 10/09/18 Exam Time: 1840 REPORT STATUS: Signed Examination: Single AP view of the chest. COMPARISON: None INDICATION: Fall DISCUSSION: Exam quality: Limited exam given portable technique and rotation. Lungs: Airspace opacities and volume loss within the right hemithorax. Relative hyperinflation of the left hemithorax. Pleura: Blunting of the costophrenic angles. No pneumothorax. Heart and mediastinum: Cardiomediastinal silhouette is rightward deviated. Prominent soft tissue density along the right heart border. Bones and soft tissues: No acute bony abnormalities. Scattered degenerative changes. Degenerative changes in the thoracic spine. IMPRESSION: 1. Emphysematous changes with chronic scarring in the right hemithorax. 2. Prominent soft tissue density along the right heart border may be related to rotation. Recommend 2 view chest x-ray for further evaluation. Signed by: Sushant Starr MD on 10/09/2018 7:12 PM Dictated By: SUSHANT STARR MD 11 Transcribed By: CARLY on 10/09/181911 COPY TO: GARTH EASTON INSPECTING ENGINEER HAND 3+ VIEWS RIGHT 2018-10-09 18:53:00 [place] [address] Patient Name: SKYE BALBUENA MR #: [id number] : 1940 Age/Sex: 78/F Req #: [id number] Adm Physician: Ordered by: GARTH EASTON INSPECTING ENGINEER Report #: [id number] Location: ER Room/Bed: Procedure: DX/HAND 3+ VIEWS RIGHT Exam Date: 10/09/18 Exam Time: 1840 REPORT STATUS: Signed Radiographs of the right hand 3 views. Radio graphs of the right wrist 3 views. HISTORY: Pain. Fall COMPARISON: None available. FINDINGS: Bones: No acute displaced fracture. Osseous alignment is within normal limits. Joints: Scattered degenerative change. Soft tissues: Soft tissue swelling. No radiopaque foreign body. IMPRESSION: Scattered degenerative change and soft tissue swelling about the right wrist and right hand. Signed by: Dr. Kg Beasley M.D. on 10/09/2018 6:54 PM Dictated By: KG BEASLEY MD, MD 53 Transcribed By: CARLY on 10/09/181853 COPY TO: GARTH EASTON INSPECTING ENGINEER WRIST COMPLETE RIGHT 2018-10-09 18:51:00 [place] [address] Patient Name: SKYE BALBUENA MR #: [id number] : 1940 Age/Sex: 78/F Req #: [id number] Adm Physician: Ordered by: GARTH EASTON INSPECTING ENGINEER Report #: [id number] Location: ER Room/Bed: Procedure: DX/WRIST COMPLETE RIGHT Exam Date: 10/09/18 Exam Time: 0 REPORT STATUS: Signed Radiographs of the right hand 3 views. Radi ographs of the right wrist 3 views. HISTORY: Pain. Fall COMPARISON: None available. FINDINGS: Bones: No acute displaced fracture. Osseous alignment is within normal limits. Joints: Scattered degenerative change. Soft tissues: Soft tissue swelling. No radiopaque foreign body. IMPRESSION: Scattered degenerative change and soft tissue swelling about the right wrist and right hand. Signed by: Dr. Kg Beasley M.D. on 10/09/2018 6:53 PM Dictated By: KG BEASLEY MD, MD 52 Transcribed By: CARLY on 10/09/181852 COPY TO: GARTH EASTON NP
[2018-10-10] MEDS ORDERED: LASIX20 MG PO (01:51)
[2018-10-10] MEDS ORDERED: PRILOSEC OTC20 MG PO (01:51)
[2018-10-10] MEDS ORDERED: METOPROLOL TART50 MG PO (01:51)
[2018-10-10] MEDS ORDERED: APIXABAN PO (01:51)
[2018-10-10] MEDS ORDERED: LISINOPRIL2.5 MG PO (01:51)
[2018-10-10] MEDS ORDERED: REMERON15 M1 PO (01:51)
[2018-10-10] MEDS ORDERED: ASPIR 8181 MG PO (01:51)
--- NOTE | 2018-10-10 02:18 | NUR ---
Patient arrived to unit via wheelchair with daughter at side. Assisted into bed and call light education provided. Bed alarm active. A&O x2 reoriented to time.Will continue to monitor.
--- NOTE | 2018-10-10 02:41 | Diagnostic Imaging Report ---
Exam: Right knee 3 views History: Pain Comparison: None. Findings: No acute fracture. Bone demineralization. Knee degenerative arthrosis with effusion. Impression: No acute osseous abnormality Signed by: Dr. Wilberto Rucker M.D. on 10/10/2018 2:38 AM
--- NOTE | 2018-10-10 06:15 | NUR ---
Daughter Tameka called. patient anxious and wanting to speak to daughter. Reported to daughter that since departure patient has been anxious and attempting to get out of bed. Taken to bedside commode several time and snack provided. Daughter spoke to patient by phone and will be up this morning. Patient Currently in bed with call light within reach and bed alarm active.
--- NOTE | 2018-10-10 07:12 | NUR ---
PATIENT ASSISTED TO THE BED SIDE COMMODE AND BACK TO BED. HEMATOMA, BRUISE, SKIN TEAR, AND SWELLING TO RIGHT FOREHEAD. SPLINT TO RIGHT WRIST, SWELLING TO RIGHT KNEE. BED IN LOWER POSITION AND LOCKED, CALL LIGHT AT REACH. INSTRUCTED TO CALL FOR ASSISTANCE NEEDED. BED ALARM ACTIVATED.
[2018-10-10 07:36] LABS: BASOPHILS % 0.3 % (0.0-1.0); EOSINOPHILS # (AUTO) 0.2 (0.0-0.4); EOSINOPHILS % 2.3 % (0.0-6.0); HEMATOCRIT 30.4 % (34.2-44.1); HEMOGLOBIN 8.8 g/dL (12.0-16.0); LYMPHOCYTES # (AUTO) 1.1 (1.0-3.2); LYMPHOCYTES % 15.8 % (18.0-39.1); MEAN CORPUSCULAR HEMOGLOBIN 23.5 pg (28-32); MEAN CORPUSCULAR HGB CONC 28.9 g/dL (31-35); MEAN CORPUSCULAR VOLUME 81.3 fL (81-99); MONOCYTES # (AUTO) 0.8 (0.2-0.8); MONOCYTES % 11.1 % (4.4-11.3); NEUTROPHILS # (AUTO) 4.9 (2.1-6.9); NEUTROPHILS % 70.2 % (38.7-80.0); PLATELET COUNT 278 x10e3/uL (140-360); RED BLOOD COUNT 3.74 x10e6/uL (3.6-5.1); RED CELL DISTRIBUTION WIDTH 18.4 % (11.7-14.4)
[2018-10-10 07:43] LABS: ALANINE AMINOTRANSFERASE 7 IU/L (0-55); ALBUMIN 3.1 g/dL (3.5-5.0); ALBUMIN/GLOBULIN RATIO 0.7 (0.8-2.0); ALKALINE PHOSPHATASE 72 IU/L (40-150); ANION GAP 10.7 mmol/L (8-16); BLOOD UREA NITROGEN 19 mg/dL (7-26); BUN/CREATININE RATIO 25 (6-25); CALCIUM 9.1 mg/dL (8.4-10.2); CARBON DIOXIDE 34 mmol/L (22-29); CHLORIDE 90 mmol/L (98-107); CREATININE, SERUM 0.76 mg/dL (0.57-1.11); EST GLOMERULAR FILTRATION RATE > 60 ML/MIN (60-); GLUCOSE 97 mg/dL (74-118); POTASSIUM 3.7 mmol/L (3.5-5.1); SODIUM 131 mmol/L (136-145)
[2018-10-10] MEDS ORDERED: ALPRAZOLAM 0.5 MG TAB PO PRN (09:15)
--- NOTE | 2018-10-10 10:41 | NUR ---
SOCIAL WORK INITIAL ASSESSMENT Machine Repair Person to bedside to discuss plan of care with patient/family. CM/SW role and care transitions discussed. Anticipated discharge plan discussed along with duration of care. CM/SW discussed patients right to make decisions in care. CM/SW work hours given. Patient lives: IN SENIOR APARTMENTS BY SELF ON 3RD FLOOR WITH AN ELEVATOR Admit/Transfer: VIA ED FOR FALL POA/Emergency contact: HARDEEP HAMPTON [phone] Current/Previous Home Health: HAS PROVIDER BUT UNKNOWN NAME OF COMPANY PCP/Follow-up Care: [facility] Current/Previous DME: [facility] Other Services: NONE Employment Status: RETIRED Areas of Concerns: FREQUENT FALLS Referral Needs: PT TO EVAL FOR LEVEL OF SAFETY AND NEED FROM FALLS Education Needs: NONE IMM/DESAI given and signed (if applicable): DESAI Goal for discharge: RETURN TO APARTMENT WILL HAVE TO WAIT ON SUGGESTION FROM MD CM/SW left business card at the bedside with contact information. Name and number was also written on the patients whiteboard. Patient verbalized understanding of discussion. CM will follow-up with ongoing discharge and transition of care needs.
--- NOTE | 2018-10-10 11:00 | NUR ---
PATIENT CONFUSED AND ANXIOUS, MD IN TO SEE PATIENT, NOTIFIED OF PATIENT CONFUSION AND ANXIETY, NEW ORDERS RECEIVED.
--- NOTE | 2018-10-10 12:15 | NUR ---
WOUND CARE CONSULTATION - INITIAL EVALUATION Patient admitted from Home to ER for S/P fall DX: Syncope LABS: WBC7.02 HGB8.8 HCT30.4 NEUT%70.2 GLU97 ALB3.1 Wound Care Consulted for Evaluation of Sacral/ Perirectal area redness. PATIENT VISIT: Jasiel Score 16 Alternating Pressure Air Mattress in place. Moderate PUP active. Patient pleasantly confused, in bed with Daughter at bedside. Patient able to move well in bed and able to get out of bed supervised to bedside commode Pull up diaper in place. Sacral area has Allevyn Foam Sacrum Dressing. No Drainage noted. Barrier cream over skin. No redness noted. Small area to left Sacrogluteal area. Daughter states patient had a bed sore but has healed. Took approx 6 months to close. On inspection annular scar tissue with small indentation that is 100% epithelialized. No open skin noted. IMPRESSION: No Pressure Ulcers Identified. Right Forehead - laceration with bruising- Scabbed and is stable- Open To Air. RECOMMENDATION: 1. Continue Barrier Creams per protocol to perirectal area 2. Continue Moderate PUP Protocol 3. Encourage OOB activity. 4. Encourage turning and repositioning every 2 Hours while in bed. Addendum: 10/10/18 at 1225 by Russell Ellis RN Amended: Links added.
[2018-10-10] MEDS: METOPROLOL TARTRATE 50 MG TAB PO SCH ×2 (14:00→17:00)
--- NOTE | 2018-10-10 16:04 | NUR ---
Nutrition Intervention Note RD Recommendation(s) for Physician: -Continue therapeutic diet as ordered -Rec ONS (vanilla ensure pudding TID) to promote PO intake. The patient meets criteria for MODERATE protein-calorie malnutrition. Plan of Care: RD following, monitoring for tolerance and adequacy, ONS rec Nutrition reason for involvement: Nutrition Risk Zmujyhy-TMR-3 RD Assessment 10/10: 78 YOF admitted for syncope. Pt was seen d/t MST. Pt reports that her appetite is good but some days she ends up eating very little. Pt stated she usually eats like a bird and picks at different things throughout the day; pt stated she has had some weight loss. Pt has been completing 75% of her meals per chart. Pt denies N/V/C/D, or any chewing/swallowing difficulty. Pt stated she does not like to consume ONS drinks but is willing to consume the Ensure pudding, spoke to nurse about supplement order. Reviewed EMR-pt has no past weights and she could not state how much weight she has lost. Pt had no other questions or concerns. Will continue to monitor. Principal Problems/Diagnoses: Syncope PMH: No H&P in chart GI: Abdomen: soft, non tender Skin: No pressure ulcers recorded. Labs: 10/10: Na 131 L Meds: Abx Ht: 60 in Wt: 97.3 lbs BMI: 19.0 kg/m2 IBW: 100 lbs Malnutrition Evaluation (10/10) The patient meets criteria for MODERATE protein-calorie malnutrition. Energy intake: <75% of estimated energy requirements for >3 months Weight loss: Unknown Fat loss: Severe clavicle protrusion Muscle loss: Moderate temporal depression Supporting Evidence: Fluid accumulation: unable to evaluate Functional Status: measurably reduced multiple falls in the past Nutrition Prescription (Diet Order): Cardiac Estimated Nutritional Needs: Calories: 9081-0842(25-35kcal/kg/d) Weight used : CBW Protein : 44-66(1-1.5g/kg/d) Weight used: CBW Diet Adequacy: Meeting calorie needs, Not meeting protein need Diet Education Needs Assessment: Diet education indicated, but patient not appropriate for education at this time. Nutrition Care Level: Low Nutrition Diagnosis: Inadequate energy intake related to medical condition as evidenced by pts reports of a decreased appetite. Goal: Patient will meet 75-100% of estimated needs by follow up Progress: Progressing Interventions: Sodium, fat, cholesterol -modified diet, Commercial beverage Monitoring/Evaluation: -Total energy intake, Total protein intake, daily weight, modified diet, supplements Signed: Pamela Solomon, MS, RD, LD
--- NOTE | 2018-10-10 16:52 | NUR ---
PATIENT ASSISTED TO THE BED SIDE COMMODE AND BACK TO BED. HAD A LARGE BM. IN BED WITH CALL LIGHT AT REACH.
--- NOTE | 2018-10-10 19:00 | NUR ---
Report and rounds completed, patient in bed in high semi rowland position. Call light within reach and bed alarm active. Instructed to call for assistance. Will continue to monitor
[2018-10-10] MEDS: CEFTRIAXONE SOD 1 GM/NS 50 ML 50 ML IV SCH (20:39)
--- NOTE | 2018-10-10 23:14 | Consultation ---
DATE OF CONSULTATION: Cardiology Consultation REASON FOR CONSULTATION: Syncope. HISTORY OF PRESENT ILLNESS: This is a 78-year-old woman with a history of hypertension, gastroesophageal reflux disease, congestive heart failure, and atrial fibrillation, who presented to emergency room after suffering a syncopal episode. The patient states that she was checking her lock on her front door and also then suddenly lost consciousness. She denies any chest pain, shortness of breath, or palpitations. One syncopal episode prior to this. She usually is steady on her feet and does not fall frequently. Upon arrival here, the patient was noted to be in atrial fibrillation. We are asked to evaluate the patient for ongoing cardiovascular needs. Of note, she follows with a orientation and mobility instructor at another facility. No recent stress test or ultrasounds were performed. PAST MEDICAL HISTORY: As stated above. PAST SURGICAL HISTORY: None recent. PAST FAMILY HISTORY: No premature coronary artery disease or sudden cardiac . SOCIAL HISTORY: No illicit drug, alcohol, or tobacco use. ALLERGIES: NO KNOWN DRUG ALLERGIES. MEDICATIONS: See medication reconciliation form. PHYSICAL EXAMINATION: VITAL SIGNS: She is afebrile, heart rate is 102, respirations are 16, blood pressure is 115/65, and oxygen saturation 97% on room air. GENERAL: She is a well-appearing elderly woman, lying comfortably in bed. HEENT: Head, there is a traumatic ecchymosis over the left frontal scalp and orbit. CARDIOVASCULAR: She is irregularly irregular, tachycardic. Systolic murmur at the left sternal border. LUNGS: Clear to auscultation. ABDOMEN: Soft, nontender, and nondistended with normoactive bowel sounds. EXTREMITIES: No clubbing, cyanosis, or edema. VASCULAR: Diminished pulses. LABORATORY DATA: Reviewed. Hemoglobin 8.8. Potassium is 3.7 and creatinine is 0.76. IMAGING DATA: Revealed a chest x-ray showing emphysematous changes with chronic interstitial change. Bilateral pleural effusions with adjacent atelectasis, greater on the right. A 12-lead electrocardiogram showed atrial fibrillation with rapid ventricular response. IMPRESSION: 1. Syncope. 2. Atrial fibrillation. 3. Hypertension. 4. Hyperlipidemia. 5. Gastroesophageal reflux disease. RECOMMENDATIONS: The patient likely has had a syncopal episode due to her atrial fibrillation with rapid ventricular response. Orthostasis also cannot be ruled out. Check orthostatic vital signs and carotid artery Dopplers. We will also check a 2D echocardiogram. Restart her metoprolol for heart rate control. We will need to discuss the risks, benefits, and alternatives of anticoagulation with the patient and her daughter seem that she has had a syncopal event. Thank you for the consultation. We will follow along with you. DO CORTES Vann/KYRIE /[id number]
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
--- NOTE | 2018-10-10 23:40 | NUR ---
Bed alarm going off, patient walking out in ling. Staff assisted to bedside toilet and back into bed. Education reinforced to call for assistance and to not get out of bed until staff at bedside to help, verbalized understanding. Bed alarm on and working.Will continue to monitor closely.
--- NOTE | 2018-10-10 23:49 | NUR ---
Left message for Dr Li answering service ( [place]) to report that patient anxious and getting out of bed. Bed alarm is on and function and patient walked into ling way. Medication for anxiety was discontinued by another MD and call made to see if medication could be restated for anxiety. Will continue to monitor closely.
[2018-10-11] VITALS (8 sets, daily range): BP systolic 90–105; BP diastolic 51–59
--- NOTE | 2018-10-11 00:50 | NUR ---
Return call from Dr Li: Patient BP 90/52, 78, having anxiety and getting out of bed. Xanax 0.5 Po Q 6hrs PRN was d/c by Dr Mathias. Resume xanax 0.5 mg po Q 6 hrs PRN and 300 cc ns bolus over 2 hrs x1.
[2018-10-11] MEDS ORDERED: SODIUM CHLORIDE 0.9% 1000ML 300 ML IV ONE (01:00)
--- NOTE | 2018-10-11 06:00 | NUR ---
Resting in bed, eyes closed, resp even and unlabored. Call light within reach. Will continue to monitor.
--- NOTE | 2018-10-11 06:25 | NUR ---
Bed alarm sounding, patient ambulating to ling. Stated " I am going to refrigerator." Education provided that in hospital. stated " I know that, I know where I am." Assisted back to bed. Education reinforced to call for assistance. Bed alarm on and working. Will continue to monitor.
--- NOTE | 2018-10-11 08:05 | NUR ---
Assisted patient to use rest room, denies any SOB or Pain this time, and she back in bed, bed alarm ON.
--- NOTE | 2018-10-11 12:01 | Progress Note ---
DATE: 10/11/2018 SUBJECTIVE: Ms. Costa is a 78-year-old female with a history of coronary artery disease, hypertension, hyperlipidemia, AFib, history of kidney stones, and reflux, came to the emergency room after falling. She does not remember what happened to her, so we are thinking she had a syncopal episode. She was admitted to the hospital, been seen by geoscience technician and found that probably the cause of her syncopal episode was atrial fibrillation with rapid ventricular rate. She has been seen by neurologist, but there is not any focal neurologic deficit. PHYSICAL EXAMINATION: GENERAL: Today, she is awake. She is alert. VITAL SIGNS: Temperature is 98.9, blood pressure 93/51, pulse is 76. HEART: Regular rate. LUNGS: Clear to auscultation. ABDOMEN: Soft. INTEGUMENTARY: She has a bruise on the right side of her frontal and parietal area around the eye. LABORATORY DATA: On the blood work; potassium 3.7, creatinine is 0.76, glucose is 97. White count 7.02, hemoglobin 8.8, hematocrit 30.4. Carotid Doppler is pending. Chest x-ray shows emphysematous and chronic intense changes with bilateral effusion. ASSESSMENT: On this patient is: 1. Syncopal episode. 2. Atrial fibrillation with rapid ventricular rate under control right now. 3. Hypertension. 4. Hyperlipidemia. 5. Reflux. 6. Dementia. 7. Coronary artery disease. PLAN: At the present time is to continue to monitor blood pressure that has been a little low. We are awaiting for echocardiogram results and apparently carotid Doppler. No occlusions on preliminary report. She was started on metoprolol for rate control and Cardiology to discuss with patient and with her daughter regarding safety of anticoagulation for this patient concerned about this patient living at home by herself and we are going to address that with a social sciences instructor. All this was discussed with the patient and questions were answered to satisfaction. MD KYLE Barone/KYRIE /[id number]
[2018-10-11] MEDS: METOPROLOL TARTRATE 50 MG TAB PO SCH (17:00)
[2018-10-11] MEDS: ALPRAZOLAM 0.5 MG TAB PO PRN (17:40)
--- NOTE | 2018-10-11 17:45 | NUR ---
PATIENT IS ANXIOUS , GETTING OUT OF BED,
--- NOTE | 2018-10-11 17:49 | Progress Note ---
DATE: Cardiology Progress Note SUBJECTIVE: The patient is feeling better. No further syncopal events. No chest pain or shortness of breath. OBJECTIVE: VITAL SIGNS: Temperature is 97.6, heart rate is 85, respirations are 16, blood pressure is 93/55, and oxygen saturation 96% on room air. GENERAL: She is an elderly woman, lying comfortably in bed. HEAD: There is a right orbital and frontal ecchymosis. CARDIOVASCULAR: She is irregularly irregular. Systolic murmur at the right sternal border. LUNGS: Clear to auscultation. ABDOMEN: Soft, nontender, and nondistended. EXTREMITIES: No edema. TELEMETRY: Monitoring revealed atrial fibrillation. LABORATORY AND MEDICATION LIST: Reviewed. IMPRESSION: 1. Syncope. 2. Atrial fibrillation. 3. Hyperlipidemia. 4. Hypertension. 5. Gastroesophageal reflux disease. 6. Aortic stenosis. RECOMMENDATIONS: The patient's heart rate is well controlled on metoprolol. We will decrease this to 25 mg b.i.d. given her low blood pressure. The echocardiogram showed mildly reduced left ventricular systolic function with an ejection fraction of 45% to 50% and aortic stenosis. It was difficult to interpret study; however, on the 2-D images, the aortic valve appears to be heavily calcified with reduced systolic excursion of the leaflets. Doppler measurements did not reveal significant stenosis; however, this likely was not capturing the stenotic jet. We will discuss with her primary belt dresser regarding prior evaluation and workup for her aortic stenosis. Continue Eliquis for now. We will need to re-discuss with the patient's family regarding safety of this. Jack Sheridan DO BM/MODL /[id number]
--- NOTE | 2018-10-11 19:00 | NUR ---
received report from day nurse. patient is resting comfortably in bed. bed is in lowest position and call morgan is within reach.
[2018-10-11] MEDS ORDERED: SODIUM CHLORIDE 0.9% 250ML 250 ML ONE (21:52)
[2018-10-11] MEDS: CEFTRIAXONE SOD 1 GM/NS 50 ML 50 ML IV SCH (21:59)
[2018-10-12] VITALS (8 sets, daily range): BP systolic 85–133; BP diastolic 55–67
--- NOTE | 2018-10-12 06:53 | NUR ---
report given to day nurse. patient is resting comfortably in bed. bed is in lowest position and call morgan is within reach
[2018-10-12] MEDS: METOPROLOL TARTRATE 50 MG TAB PO SCH ×2 (09:00→18:45)
--- NOTE | 2018-10-12 11:53 | Progress Note ---
DATE: 10/12/2018 SUBJECTIVE: Ms. Costa is a 78-year-old female with history of coronary artery disease, hypertension, hyperlipidemia, atrial fibrillation, systolic CHF, came to the emergency room because she fell. She does not remember what happened, so that is why we think she had a syncopal episode and was cleared by neurology. She was likely to have atrial fibrillation with rapid ventricular rate, started on metoprolol 25 mg twice a day on Eliquis. She has been on PT, OT, so the plan is to discuss discharge planning with her and her family. PHYSICAL EXAMINATION: GENERAL: She is awake and alert. VITAL SIGNS: Temperature is 97.5, blood pressure is 85/67. HEART: Irregularly irregular. LUNGS: Clear to auscultation. ABDOMEN: Soft. LABORATORY DATA: On the blood work; potassium is 3.7, creatinine is 0.76, glucose is 97. White count is 7.02, hemoglobin 8.8, hematocrit 30.4. ASSESSMENT: On this patient is: 1. Syncopal episode. 2. Atrial fibrillation with rapid ventricular rate, now under control. 3. Hypertension. 4. Hyperlipidemia. 5. Chronic systolic congestive heart failure. 6. Dementia. 7. Coronary artery disease. PLAN: At the present time is neurologic workup was negative. Atrial fibrillation is under control. She is on metoprolol 25 mg twice a day. Blood pressure is still low. She also was started on Eliquis by webmethods architect. We have to adjust the medication and discuss safety of anticoagulation for this patient as well as placement upon discharge. All this was discussed with nurse. All questions were answered to satisfaction. MD KYLE Barone/KYRIE /[id number]
--- NOTE | 2018-10-12 12:57 | NUR ---
RECEIVED ORDER FOR HOME SN EVAL AND TREAT, PT EVAL AND TREAT AND HSE. MET W THE PT AND DTR, JOSE L AT THE BEDSIDE. DISCUSSED HH CHOICE. DTR STATES SHE IS [facility]. THEY BOTH REQUESTED AN AGENCY IN [facility] [place]. CHOICE LETTER SIGNED AND COPY TO PT AND COPY TO CHART. REFERRAL FAXED TO [facility]. OFF: [phone], FAX: [phone]; CONTACT: CHARLI Addendum: 10/12/18 at 1448 by Sarah Ward CM CALL RECEIVED FROM CHARLI KILGORE CONFIRMING PT WAS ACCEPTED. STATES SHE WILL CALL THE DTR TO INFORM HER A NURSE WILL BE CALLING TO SCHEDULE A VISIT.
--- NOTE | 2018-10-12 14:38 | NUR ---
HOME HEALTH DISCHARGE NOTE PATIENT ADDRESS WHERE SERVICE WILL BE RECEIVED: [id number] [place] [address] PATIENT CONTACT NUMBER: [phone] NAME OF HOME HEALTH COMPANY: [facility] TELEPHONE/FAX NUMBER OF COMPANY: OFF: [phone] / FAX: [phone] ADDRESS OF [employer]: [address] [place] [address], [address] [place] [address] SERVICES TO RECEIVE: SKILLED NURSE EVAL AND TREAT, PHYSICAL THERAPY EVAL AND TREAT, HOME SAFETY EVAL ANTICIPATED DATE SERVICES WILL BEGIN: 10/14/2018 Please call the company above if you have not received a call to schedule a home visit within 24 hours of discharge.
--- NOTE | 2018-10-12 16:39 | Progress Note ---
DATE: 10/12/2018 Cardiology Progress Note SUBJECTIVE: The patient is feeling well. Denies any chest pain, shortness of breath, lightheadedness or dizziness. OBJECTIVE: VITAL SIGNS: Temperature is 96.2, heart rate is 111, respiratory rate is 20, blood pressure 109/55, and oxygen saturation 94% on room air. GENERAL: Well appearing, in no apparent distress. CARDIOVASCULAR: Irregularly irregular, tachycardic. LUNGS: Clear to auscultation. ABDOMEN: Soft, nontender. CARDIOVASCULAR MEDICATIONS: Reviewed. TELEMETRY: Monitoring revealed atrial fibrillation. IMPRESSION: 1. Syncope. 2. Atrial fibrillation. 3. Hypertension. 4. Hyperlipidemia. 5. Aortic valve disease. RECOMMENDATIONS: Continue metoprolol for heart rate control with holding parameters. The patient has borderline low blood pressures. We will need to re-discuss with daughter regarding anticoagulation given mild confusion and recent syncopal event causing head trauma. I have also tried to contact the patient's primary manager lan, regarding his prior workup of her aortic valve. Continue to monitor closely on telemetry. Jack Sheridan DO BM/MODL /[id number]
--- NOTE | 2018-10-12 16:53 | NUR ---
PATIENT RESTING IN BED, WALKED WITH PT, DENIES ANY PAIN, NOT IN ANY DISTRESS, DAUGHTER AT BED SIDE
[2018-10-12] MEDS: CEFTRIAXONE SOD 1 GM/NS 50 ML 50 ML IV SCH (20:19)
--- NOTE | 2018-10-12 22:03 | NUR ---
patient is complaining of feeling nausea. MD notified. awaiting call back.
--- NOTE | 2018-10-12 22:27 | NUR ---
md returned and gave new orders. will continue to monitor patient.
[2018-10-12] MEDS: ONDANSETRON HCL INJ 2MG/ML 2ML 2 MG/ML VIAL IV PRN (22:48)
[2018-10-12] MEDS: ALPRAZOLAM 0.5 MG TAB PO PRN (22:48)
[2018-10-13] VITALS (7 sets, daily range): BP systolic 81–98; BP diastolic 42–56
--- NOTE | 2018-10-13 01:00 | NUR ---
patient keeps on taking off nasal cannula.
--- NOTE | 2018-10-13 06:45 | NUR ---
report given to day nurse. patient is resting comfortably in bed. bed is in lowest position and call morgan is within reach.
[2018-10-13] MEDS: METOPROLOL TARTRATE 50 MG TAB PO SCH ×2 (09:00→17:55)
--- NOTE | 2018-10-13 11:19 | Progress Note ---
DATE: 10/13/2018 SUBJECTIVE: Ms. Costa is a 78-year-old female with history of coronary artery disease, hypertension, hyperlipidemia, atrial fibrillation, systolic CHF, came to the emergency room after falling. She does not really remember what happened so we are treating her like she had a syncopal episode. She was seen by neurologist, who signed off the case. Cardiology that think syncopal episode may have been due to atrial fibrillation with rapid ventricular rate. At the present time, she is on metoprolol 25 mg twice a day and Eliquis. We will discuss safety of anticoagulation with the patient and with her family. As per nurse report today, the patient is not able to walk, she is very wobbly so I do not think it is a good idea to send her home as she lives by herself, she will benefit from SNF or some type of rehab. OBJECTIVE: GENERAL: She is sleepy, but arousable. VITAL SIGNS: Temperature is 97.2 and blood pressure 94/52. HEART: Irregularly irregular. LUNGS: Clear to auscultation. ABDOMEN: Soft. LABORATORY DATA: On the blood work; potassium is 3.7, creatinine is 0.76, and glucose is 97. White count is 7.02, hemoglobin is 8.8, and hematocrit 30.4. ASSESSMENT: 1. Syncopal episode. 2. Atrial fibrillation with rapid ventricular rate, under control now. 3. Hypertension. 4. Hyperlipidemia. 5. Chronic systolic congestive heart failure. 6. Dementia. 7. Coronary artery disease. 8. Abnormal balance. PLAN: The plant at the present time is to continue metoprolol. She is still on Eliquis. Acoustical Tile Carpenters Supervisor to discuss with family the safety of Eliquis. Discussed with nurse. I do not think she is safe to go home today so we are going to get a medical case manager involved on the case to see since I think the patient will benefit with some type of SNF or rehab. MD KYLE Barone/KYRIE /[id number]
[2018-10-13] MEDS ORDERED: METOPROLOL TARTRATE 25 MG TAB PO SCH (17:00)
--- NOTE | 2018-10-13 17:11 | NUR ---
patient vomited liquid with black coffee ground material. sent to lab and result was positive. lala MERLOS now.
[2018-10-13] MEDS: ONDANSETRON HCL INJ 2MG/ML 2ML 2 MG/ML VIAL IV PRN (18:04)
--- NOTE | 2018-10-13 19:08 | NUR ---
Report received, walking rounds complete.
--- NOTE | 2018-10-13 19:18 | NUR ---
Call put out to MD again. Pt having coffee ground emesis. Awaiting return call.
--- NOTE | 2018-10-13 19:39 | NUR ---
Dr. Lucas returned call covering fro Dr. Li. Informed MD of coffee ground emesis and positive occult stool. Orders given for CBC and CMP labs in am, D5 1/2 NS @100ml/hr, Consult Dr. Blair Morales, Pepcid 40mg IV q 12h, clear liquid diet , and then NPO after midnight.
--- NOTE | 2018-10-13 19:42 | Progress Note ---
DATE: SUBJECTIVE: The patient is very lethargic, altered, given Xanax earlier. OBJECTIVE: VITAL SIGNS: Temperature is 97.6, heart rate is 106, respiratory rate is 20, blood pressure is 97/56, and oxygen saturation is 100% on room air. GENERAL: She is a well-appearing elderly woman, mild confusion. HEAD: There is right periorbital ecchymosis and right forehead ecchymosis. CARDIOVASCULAR: She is irregularly irregular, tachycardic. Systolic murmur at the right sternal border. LUNGS: Clear to auscultation. ABDOMEN: Soft, nontender, nondistended. Normoactive bowel sounds. EXTREMITIES: No edema. DIAGNOSTIC DATA: Telemetry monitoring revealed atrial fibrillation with mostly controlled ventricular response. MEDICATIONS: Cardiovascular medications reviewed. LABORATORY DATA: Reviewed. IMPRESSION: 1. Syncope. 2. Atrial fibrillation. 3. Hypertension. 4. Hyperlipidemia. 5. Aortic valve disease. RECOMMENDATIONS: Continue low-dose metoprolol with holding parameters for heart rate control. Discussed anticoagulation with the patient's son-in-law and son at bedside. They are going to discuss with her daughter regarding the risks, benefits, and alternatives receiving anticoagulation. I have tried to contact the patient's primary tablet technician, Dr. Santiago regarding his prior evaluation of her aortic valve. Continue to monitor closely on telemetry. No further invasive evaluation at this point in time. DO CORTES Vann/SARAHL /[id number]
[2018-10-13] MEDS: DEXTROSE 5%/0.45% SOD CHL 1,000 ML IV SCH (20:36)
[2018-10-13] MEDS: MELATONIN 5 MG TABLET PO SCH (20:37)
[2018-10-13] MEDS: CEFTRIAXONE SOD 1 GM/NS 50 ML 50 ML IV SCH (20:37)
[2018-10-13] MEDS: FAMOTIDINE 20 MG/2 ML VIAL IV SCH (20:37)
[2018-10-13 20:46] LABS: BASOPHILS % 0.4 % (0.0-1.0); EOSINOPHILS # (AUTO) 0.2 (0.0-0.4); EOSINOPHILS % 2.3 % (0.0-6.0); HEMATOCRIT 23.9 % (34.2-44.1); LYMPHOCYTES # (AUTO) 1.2 (1.0-3.2); LYMPHOCYTES % 17.4 % (18.0-39.1); MEAN CORPUSCULAR HEMOGLOBIN 23.9 pg (28-32); MEAN CORPUSCULAR HGB CONC 27.2 g/dL (31-35); MEAN CORPUSCULAR VOLUME 87.9 fL (81-99); MONOCYTES # (AUTO) 0.9 (0.2-0.8); MONOCYTES % 12.9 % (4.4-11.3); NEUTROPHILS # (AUTO) 4.5 (2.1-6.9); NEUTROPHILS % 66.3 % (38.7-80.0); PLATELET COUNT 250 x10e3/uL (140-360); RED BLOOD COUNT 2.72 x10e6/uL (3.6-5.1); RED CELL DISTRIBUTION WIDTH 18.6 % (11.7-14.4)
[2018-10-13 20:48] LABS: HEMOGLOBIN 6.5 g/dL (12.0-16.0)
--- NOTE | 2018-10-13 21:07 | NUR ---
Call put out to Dr. Lucas to report critical lab
--- NOTE | 2018-10-13 21:18 | NUR ---
Dr. Lucas returned call. Informed of Hemoglobin 6.5. Order for 2 units PRBC to be given.
[2018-10-13] MEDS ORDERED: SODIUM CHLORIDE 0.9% 250ML 250 ML IV ONE (21:30)
--- NOTE | 2018-10-13 23:48 | NUR ---
Dr. Blair Morales rounding; Informed him of pt episodes of coffee ground emesis x 2 and positive occult stool. Also informed of labs and pt to receive blood. MD gave orders for Protonix 80mg IV now and Protonix drip 40mg at standard rate.
[2018-10-13] MEDS ORDERED: PANTOPRAZOLE 40 MG 10ML VIAL IV STA (23:50)
[2018-10-14] VITALS (17 sets, daily range): BP systolic 82–108; BP diastolic 45–67
[2018-10-14] MEDS ORDERED: PANTOPRAZOLE INJ 40 MG in SODIUM CHLORIDE 0.9% 50ML 50 ML IV SCH ×2
[2018-10-14] MEDS: PANTOPRAZOLE INJ 40 MG in SODIUM CHLORIDE 0.9% 50ML 50 ML IV SCH ×5 (00:45→20:25)
[2018-10-14] MEDS ORDERED: SODIUM CHLORIDE 0.9% 250ML 250 ML ONE ×3 (01:42→08:30)
--- NOTE | 2018-10-14 01:59 | NUR ---
Blood ready to administered. Obtained consent to give blood from pt daughter Tameka via telephone. Gina ,RN 2nd RN witness to pt daughter consenting to pt receiving blood.
[2018-10-14] MEDS: DEXTROSE 5%/0.45% SOD CHL 1,000 ML IV SCH ×2 (05:01→13:33)
--- NOTE | 2018-10-14 07:09 | NUR ---
report given and walking rounds complete
--- NOTE | 2018-10-14 07:45 | NUR ---
DAY 4 OBSERVATION AND MEETS INPATIENT PER INDICIA WITH GI BLEED. REQUESTED INPATIENT ORDER. AWAITING MD REPLY
--- NOTE | 2018-10-14 08:34 | NUR ---
Dr Lucas notified of mental status issues and BP. blood almost done transfusing. 250 ns bolus being given. family at BS.
[2018-10-14] MEDS: METOPROLOL TARTRATE 50 MG TAB PO SCH ×2 (09:00→16:30)
--- NOTE | 2018-10-14 09:55 | NUR ---
2nd unit PRBC complete. protonix drip started at 8mg/hr. patient transferred to ICU and report given at time of transfer. family present. 250ml bolus NS given prior to transfer.
[2018-10-14] MEDS: FAMOTIDINE 20 MG/2 ML VIAL IV SCH ×2 (10:44→17:03)
[2018-10-14 11:15] LABS: BASOPHILS % 0.1 % (0.0-1.0); HEMATOCRIT 30.2 % (34.2-44.1); LYMPHOCYTES # (AUTO) 1.1 (1.0-3.2); LYMPHOCYTES % 11.8 % (18.0-39.1); MEAN CORPUSCULAR HGB CONC 29.8 g/dL (31-35); MEAN CORPUSCULAR VOLUME 87.3 fL (81-99); MONOCYTES # (AUTO) 1.1 (0.2-0.8); MONOCYTES % 12.1 % (4.4-11.3); NEUTROPHILS # (AUTO) 7.1 (2.1-6.9); PLATELET COUNT 201 x10e3/uL (140-360); RED BLOOD COUNT 3.46 x10e6/uL (3.6-5.1); RED CELL DISTRIBUTION WIDTH 16.2 % (11.7-14.4)
[2018-10-14 11:36] LABS: ALANINE AMINOTRANSFERASE 8 IU/L (0-55); ALBUMIN 2.8 g/dL (3.5-5.0); ALBUMIN/GLOBULIN RATIO 0.7 (0.8-2.0); ALKALINE PHOSPHATASE 50 IU/L (40-150); ANION GAP 10.8 mmol/L (8-16); BLOOD UREA NITROGEN 57 mg/dL (7-26); BUN/CREATININE RATIO 69 (6-25); CALCIUM 8.6 mg/dL (8.4-10.2); CARBON DIOXIDE 32 mmol/L (22-29); CHLORIDE 98 mmol/L (98-107); CREATININE, SERUM 0.83 mg/dL (0.57-1.11); EST GLOMERULAR FILTRATION RATE > 60 ML/MIN (60-); GLUCOSE 119 mg/dL (74-118); POTASSIUM 4.8 mmol/L (3.5-5.1); SODIUM 136 mmol/L (136-145)
--- NOTE | 2018-10-14 13:15 | Progress Note ---
DATE: 10/14/2018 Cardiology Progress Note SUBJECTIVE: The patient remains confused. She is attempting to get out of bed and is asking to go home. She was transferred to the ICU overnight due to hypotension. She has been bolused 500 mL NS and transfused 2 units PRBCs. OBJECTIVE: VITAL SIGNS: Temperature 98.1 degrees, pulse 100, respiratory rate 20, blood pressure 95/54, oxygen saturation 100% on 2 L nasal cannula. GENERAL: Elderly woman, thin, frail, no acute distress. Confused. Periorbital ecchymosis and forehead ecchymoses are noted on the right. CARDIOVASCULAR: Irregularly irregular, tachycardiac. Systolic murmur at the right upper sternal border. LUNGS: Clear to auscultation bilaterally. No wheeze or crackles. ABDOMEN: Soft, nontender. EXTREMITIES: No edema. CARDIAC MEDICATIONS: Metoprolol tartrate 25 mg p.o. b.i.d. LABORATORY DATA: None today. TELEMETRY: Atrial fibrillation. IMPRESSION: 1. Fall versus syncope. 2. Atrial fibrillation. 3. Suspected severe aortic valve stenosis. 4. Chronic systolic heart failure. 5. Hypertension. 6. Hyperlipidemia. RECOMMENDATIONS: Continue current cardiac medications. Monitor patient on telemetry. Given patient's anemia with positive stool occult blood and need for blood transfusion. Continue to hold anticoagulation. Explained to family that she is at increased risk of CVA due to lack of anticoagulate at this time. However, the risks outweigh the benefits given her current bleeding. We will attempt to obtain further records from her outpatient turning and beading machine operator regarding her severe aortic stenosis. In the meantime, evaluation of altered mental status per primary. Continue to monitor the patient closely. No further cardiac evaluation is indicated at this time. Thank you for this consult. We will continue to follow. Nohelia Dunn MD ABS/MODL /[id number]
--- NOTE | 2018-10-14 15:39 | NUR ---
per Dr Blair Morales, will hold off on EGD due to hypotension
[2018-10-14] MEDS: MELATONIN 5 MG TABLET PO SCH (21:00)
[2018-10-14] MEDS: CEFTRIAXONE SOD 1 GM/NS 50 ML 50 ML IV SCH (21:06)
[2018-10-15] VITALS (26 sets, daily range): BP systolic 87–104; BP diastolic 43–84
[2018-10-15] MEDS: ONDANSETRON HCL INJ 2MG/ML 2ML 2 MG/ML VIAL IV PRN (00:04)
[2018-10-15] MEDS: PANTOPRAZOLE INJ 40 MG in SODIUM CHLORIDE 0.9% 50ML 50 ML IV SCH ×2 (01:11→06:45)
[2018-10-15] MEDS: DEXTROSE 5%/0.45% SOD CHL 1,000 ML IV SCH ×2 (01:11→08:23)
[2018-10-15 05:33] LABS: BASOPHILS % 0.2 % (0.0-1.0); EOSINOPHILS % 0.2 % (0.0-6.0); HEMATOCRIT 26.6 % (34.2-44.1); HEMOGLOBIN 7.7 g/dL (12.0-16.0); LYMPHOCYTES # (AUTO) 0.7 (1.0-3.2); LYMPHOCYTES % 11.8 % (18.0-39.1); MEAN CORPUSCULAR HEMOGLOBIN 25.8 pg (28-32); MEAN CORPUSCULAR HGB CONC 28.9 g/dL (31-35); MEAN CORPUSCULAR VOLUME 89.3 fL (81-99); MONOCYTES # (AUTO) 0.8 (0.2-0.8); NEUTROPHILS # (AUTO) 4.3 (2.1-6.9); NEUTROPHILS % 72.9 % (38.7-80.0); PLATELET COUNT 184 x10e3/uL (140-360); RED BLOOD COUNT 2.98 x10e6/uL (3.6-5.1); RED CELL DISTRIBUTION WIDTH 17.2 % (11.7-14.4)
--- NOTE | 2018-10-15 05:44 | Diagnostic Imaging Report ---
Examination: Single AP view of the chest. COMPARISON: October 09 INDICATION: Congestive heart failure DISCUSSION: Lines/tubes: None. Lungs: Pulmonary venous congestion. Lower lung atelectasis. Pleura: Small effusions. Heart and mediastinum: Enlarged heart. Bones and soft tissues: No acute bony abnormalities. Degenerative changes in the thoracic spine. IMPRESSION: Cardiomegaly with pulmonary venous congestion and small effusions Signed by: Dr. Wilberto Rucker M.D. on 10/15/2018 5:41 AM
[2018-10-15 06:22] LABS: ALANINE AMINOTRANSFERASE 8 IU/L (0-55); ALBUMIN 2.5 g/dL (3.5-5.0); ALKALINE PHOSPHATASE 45 IU/L (40-150); BLOOD UREA NITROGEN 38 mg/dL (7-26); CALCIUM 8.5 mg/dL (8.4-10.2); CARBON DIOXIDE 29 mmol/L (22-29); GLUCOSE 121 mg/dL (74-118)
[2018-10-15 06:50] LABS: ALBUMIN/GLOBULIN RATIO 0.7 (0.8-2.0); ANION GAP 10.7 mmol/L (8-16); BUN/CREATININE RATIO 47 (6-25); CHLORIDE 100 mmol/L (98-107); CREATININE, SERUM 0.81 mg/dL (0.57-1.11); EST GLOMERULAR FILTRATION RATE > 60 ML/MIN (60-); POTASSIUM 4.7 mmol/L (3.5-5.1); SODIUM 135 mmol/L (136-145)
--- NOTE | 2018-10-15 08:12 | NUR ---
PATIENT HAS BEEN CONSTANTLY YELLING OUT AND INCONSOLABLE. SHE IS ATTEMPTING TO GET OUT OF BED BY SWINGING HER LEGS OVER BED RAILS. ALL 4 BED RAILS UP WITH MD ORDER FOR PATIENT SAFETY.
[2018-10-15] MEDS: FAMOTIDINE 20 MG/2 ML VIAL IV SCH ×2 (08:23→16:54)
[2018-10-15] MEDS: METOPROLOL TARTRATE 50 MG TAB PO SCH ×2 (09:00→16:54)
--- NOTE | 2018-10-15 11:34 | Progress Note ---
DATE: 10/15/2018 Cardiology Progress Note SUBJECTIVE: The patient remains confused, trying to get out of bed. She denies any complaints. OBJECTIVE: VITAL SIGNS: Temperature 98.2 degrees, pulse 97, respiratory rate 22, blood pressure 87/67, oxygen saturation 100% on 2 L nasal cannula. GENERAL: Elderly frail woman, no acute distress. Confused. Periorbital ecchymosis and forehead abrasion are noted on the right. CARDIOVASCULAR: Irregularly irregular, normal rate, systolic murmur at the right upper sternal border. LUNGS: Clear to auscultation bilaterally. No wheezes or crackles. ABDOMEN: Soft, nontender. EXTREMITIES: No edema. CARDIAC MEDICATIONS: Metoprolol tartrate 25 mg p.o. b.i.d. LABORATORY DATA: WBC 5.85, hemoglobin 7.7, hematocrit 26.6, platelets 184. Sodium 135, potassium 4.7, chloride 100, CO2 29, BUN 38, creatinine 0.81. BNP 602. TELEMETRY: Atrial fibrillation. IMPRESSION: 1. Fall versus syncope. 2. Atrial fibrillation. 3. Suspected severe aortic valve stenosis. 4. Chronic systolic heart failure. 5. Hypertension. 6. Hyperlipidemia. RECOMMENDATIONS: Continue current cardiac medications for rate control. Monitor patient closely on telemetry. Given patient's anemia with positive stool occult blood and need for blood transfusion, we will continue to hold anticoagulation. We will attempt to obtain further records from her outpatient messenger office regarding her severe aortic stenosis. In the meantime, evaluation of altered mental status per primary. GI is evaluating patient's suspected GI blood loss. Monitor patient closely. No further cardiac evaluation is planned at this time. Thank you for this consult. We will continue to follow. Nohelia Dunn MD ABS/MODL /[id number]
--- NOTE | 2018-10-15 12:31 | NUR ---
FAMILY NOW AT BEDSIDE. PATIENT CONTINUES TO YELL OUT AND ATTEMPT TO GET OUT OF BED. CONTINUING 4 SIDE RAIL RESTRAINT
[2018-10-15 12:49] LABS: LYMPHOCYTES % (MANUAL) 13 % (19-48); MONOCYTES % (MANUAL) 11 % (3.4-9.0); NEUTROPHILS % (MANUAL) 76 % (40-74); PLATELET ESTIMATE ADEQUATE
[2018-10-15 12:50] LABS: PLATELET MORPHOLOGY COMMENT NORMAL; RBC MORPHOLOGY COMMENT NORMAL
[2018-10-15] MEDS: CEFTRIAXONE SOD 1 GM/NS 50 ML 50 ML IV SCH (20:40)
[2018-10-15] MEDS: MELATONIN 5 MG TABLET PO SCH (20:40)
[2018-10-16] VITALS (16 sets, daily range): BP systolic 87–120; BP diastolic 38–97
[2018-10-16 06:44] LABS: BASOPHILS % 0.2 % (0.0-1.0); EOSINOPHILS % 0.3 % (0.0-6.0); HEMATOCRIT 26.4 % (34.2-44.1); HEMOGLOBIN 7.9 g/dL (12.0-16.0); LYMPHOCYTES # (AUTO) 0.8 (1.0-3.2); LYMPHOCYTES % 13.5 % (18.0-39.1); MEAN CORPUSCULAR HEMOGLOBIN 26.3 pg (28-32); MEAN CORPUSCULAR HGB CONC 29.9 g/dL (31-35); MONOCYTES # (AUTO) 0.6 (0.2-0.8); MONOCYTES % 10.8 % (4.4-11.3); NEUTROPHILS # (AUTO) 4.4 (2.1-6.9); PLATELET COUNT 217 x10e3/uL (140-360); RED CELL DISTRIBUTION WIDTH 17.3 % (11.7-14.4)
[2018-10-16 06:58] LABS: ALANINE AMINOTRANSFERASE 11 IU/L (0-55); ALBUMIN 3.1 g/dL (3.5-5.0); ALBUMIN/GLOBULIN RATIO 0.8 (0.8-2.0); ALKALINE PHOSPHATASE 55 IU/L (40-150); ANION GAP 12.4 mmol/L (8-16); BLOOD UREA NITROGEN 28 mg/dL (7-26); BUN/CREATININE RATIO 36 (6-25); CALCIUM 9.1 mg/dL (8.4-10.2); CARBON DIOXIDE 29 mmol/L (22-29); CHLORIDE 99 mmol/L (98-107); CREATININE, SERUM 0.78 mg/dL (0.57-1.11); EST GLOMERULAR FILTRATION RATE > 60 ML/MIN (60-); GLUCOSE 85 mg/dL (74-118); POTASSIUM 4.4 mmol/L (3.5-5.1); SODIUM 136 mmol/L (136-145)
[2018-10-16] MEDS: PANTOPRAZOLE SOD 40 MG TABEC PO SCH (07:37)
[2018-10-16] MEDS: FAMOTIDINE 20 MG/2 ML VIAL IV SCH (08:31)
[2018-10-16] MEDS: METOPROLOL TARTRATE 50 MG TAB PO SCH (08:32)
[2018-10-16] MEDS ORDERED: QUETIAPINE FUMARATE 25 MG TAB PO SCH (08:45)
--- NOTE | 2018-10-16 09:09 | NUR ---
pt assisted to bedside chair for now with constant supervision.. pt given linen to fold which seems to help distract her.
--- NOTE | 2018-10-16 11:10 | Progress Note ---
DATE: 10/16/2018 SUBJECTIVE: Ms. Costa is a 78-year-old female with history of coronary artery disease, hypertension, hyperlipidemia, atrial fibrillation, systolic CHF, dementia, who came to the emergency room after having a syncopal episode. She was found to have atrial fibrillation with rapid ventricular rate. She was started on metoprolol. During the weekend her blood pressure dropped, so patient was transferred to ICU. At present time, she is doing better. PHYSICAL EXAMINATION: HEART: Irregularly irregular, 90 per minute, and blood pressure is 111/74 and heart is still irregular. LUNGS: Clear to auscultation. ABDOMEN: Soft. LABORATORY DATA: On the blood work; potassium is 4.4, creatinine is 0.78, glucose is 85. White count is 5.91, hemoglobin 7.9, hematocrit is 26.4. ADMITTING DIAGNOSES: 1. Syncopal episode. 2. Atrial fibrillation with rapid ventricular rate, under control now. 3. Hypotension, improving. 4. Chronic systolic congestive heart failure. 5. Dementia. 6. Coronary artery disease. 7. Upper gastrointestinal bleed. 8. Anemia secondary to upper gastrointestinal bleed. PLAN: At the present time is to continue to monitor blood pressure. We will continue to monitor hemoglobin. She was seen already by GI and she may need EGD when she is hemodynamically stable. She was already transfused 2 units of packed red blood cells. Continue to monitor blood pressure. Continue to monitor hemoglobin. She is very confused sometimes and wants to get out of bed, so we are going to have to start her on some medication for resuscitation she has. All this was discussed with the patient and nurse. All questions were answered to satisfaction. I spent more than 35 minutes examining patient, reviewing overnight event, lab results, and x-rays. Transfer to telemetry is stable. MD KYLE Barone/KYRIE /[id number]
[2018-10-16] MEDS ORDERED: METOPROLOL TARTRATE 50 MG TAB PO SCH (12:00)
[2018-10-16] MEDS: METOPROLOL TARTRATE 25 MG TAB PO SCH ×2 (12:00→18:00)
--- NOTE | 2018-10-16 12:20 | NUR ---
patient yelling "please Noe let me go!. and whispering Can you pick this lock? please im begging you, yeah thats it." pt no longer responding to myself or other staff members. pt is picking at iv's, pulled one out this morning. pillows placed along side rails to help soften sides of bed from patient. bilateral wrist restraints initiated as pt not following commands and not responding to staff. called dr. garrison, waiting for call back. bed alarm on. 1:1 continuous supervision at this time. hr 110 afib, bp 100/73, ra sats 96% [id number] [facility] licensed embalmer supervisor and managers updated with patient status as well.
--- NOTE | 2018-10-16 12:40 | Progress Note ---
DATE: 10/16/2018 Cardiology Progress Note SUBJECTIVE: The patient is still confused. She denied chest pain or shortness of breath. OBJECTIVE: VITAL SIGNS: Temperature 98.2 degrees, pulse 113, respiratory rate 25, blood pressure 100/79, and oxygen saturation 98% on 2 L nasal cannula. GENERAL: Elderly woman, frail, no acute distress. Confused. Periorbital ecchymosis and forehead abrasion are noted on the right. CARDIOVASCULAR: Irregularly irregular, tachycardiac. Systolic murmur at the right upper sternal border. LUNGS: Clear to auscultation bilaterally. No wheezes or crackles. ABDOMEN: Soft, nontender. EXTREMITIES: No edema. CARDIAC MEDICATIONS: Metoprolol tartrate 25 mg p.o. b.i.d. LABORATORY DATA: WBC 5.91, hemoglobin 7.9, hematocrit 26.4, and platelets 217. Sodium 136, potassium 4.4, chloride 99, CO2 29, BUN 28, creatinine 0.78. TELEMETRY: Atrial fibrillation with episodes of rapid ventricular response. IMPRESSION: 1. Fall versus syncope. 2. Atrial fibrillation. 3. Suspected severe aortic valve stenosis. 4. Chronic systolic heart failure. 5. Hypertension. 6. Hyperlipidemia. RECOMMENDATIONS: We will increase metoprolol with holding parameters for rate control given her atrial fibrillation with rapid ventricular response. Monitor the patient closely on telemetry. Watch blood pressure. Given the patient's anemia with positive stool occult blood and need for blood transfusion, we will continue to hold anticoagulation. We will request records from the patient's outpatient presser and shaper knitted goods regarding her severe aortic stenosis. In the meantime, evaluation of altered mental status per primary. GI is evaluating patient's suspected GI blood loss. No further cardiac evaluation is indicated at this time. Thank you for this consult. We will continue to follow. Nohelia Dunn MD ABS/MODL /[id number]
--- NOTE | 2018-10-16 13:47 | NUR ---
paged dr. garrison again. new orders received. pt yelling to people who are not present. unable to redirect her at this time. sitter in room with patient. pt fighting going to sleep. she starts dozing off then wakes up yelling. she continues to talk as she is falling asleep. also spoke with daughter and son of patient. updated them with plan of care. both verbalize understanding of patient status.
[2018-10-16] MEDS: LORAZEPAM INJ 2 MG/ML VIAL IV PRN ×2 (14:06→22:05)
[2018-10-16] MEDS ORDERED: LORAZEPAM INJ 2 MG/ML VIAL ONE (14:08)
--- NOTE | 2018-10-16 15:09 | NUR ---
patient's son in law is at bedside and arrived approximately 1430. pt much calmer now. ativan given for anxiety and hr 140's afib. restraints discontinued. will continue to monitor safety of patient.
--- NOTE | 2018-10-16 15:37 | NUR ---
consult called to Dr. Alcaraz office at this time.
--- NOTE | 2018-10-16 19:00 | NUR ---
Report received. Assumed care. Assessment done. See interventions.
[2018-10-16] MEDS: MELATONIN 5 MG TABLET PO SCH ×2 (21:00→21:29)
[2018-10-16] MEDS: CEFTRIAXONE SOD 1 GM/NS 50 ML 50 ML IV SCH (21:29)
--- NOTE | 2018-10-16 22:05 | NUR ---
Extremely agitated. Pulling at lines and linens. Medicated with Ativan.
[2018-10-17] VITALS (7 sets, daily range): BP systolic 81–106; BP diastolic 48–69
[2018-10-17 05:01] LABS: HEMATOCRIT 25.8 % (34.2-44.1); HEMOGLOBIN 7.5 g/dL (12.0-16.0); MEAN CORPUSCULAR HEMOGLOBIN 26.1 pg (28-32); MEAN CORPUSCULAR HGB CONC 29.1 g/dL (31-35); MEAN CORPUSCULAR VOLUME 89.9 fL (81-99); PLATELET COUNT 207 x10e3/uL (140-360); RED BLOOD COUNT 2.87 x10e6/uL (3.6-5.1)
[2018-10-17 05:19] LABS: ANION GAP 7.4 mmol/L (8-16); BLOOD UREA NITROGEN 28 mg/dL (7-26); BUN/CREATININE RATIO 36 (6-25); CALCIUM 8.7 mg/dL (8.4-10.2); CARBON DIOXIDE 31 mmol/L (22-29); CHLORIDE 98 mmol/L (98-107); CREATININE, SERUM 0.78 mg/dL (0.57-1.11); EST GLOMERULAR FILTRATION RATE > 60 ML/MIN (60-); GLUCOSE 77 mg/dL (74-118); POTASSIUM 4.4 mmol/L (3.5-5.1); SODIUM 132 mmol/L (136-145)
[2018-10-17] MEDS: METOPROLOL TARTRATE 25 MG TAB PO SCH ×4 (05:42→18:00)
[2018-10-17] MEDS: PANTOPRAZOLE SOD 40 MG TABEC PO SCH (07:30)
--- NOTE | 2018-10-17 11:16 | Progress Note ---
DATE: 10/17/2018 SUBJECTIVE: Ms. Costa is a 78-year-old female with history of coronary artery disease, hypertension, hyperlipidemia, atrial fibrillation, systolic CHF, dementia, aortic stenosis, who came to the emergency room after having a syncopal episode. She was found to have AFib with rapid ventricular rate. She was started on metoprolol. GI bleed, so anticoagulation was stopped. PHYSICAL EXAMINATION: GENERAL: The patient is sleeping. VITAL SIGNS: Temperature is 97.9. Blood pressure is 99/66. HEART: Irregularly irregular, 90 per minute. LUNGS: Poor inspiratory effort. ABDOMEN: Soft. LABORATORY DATA: On the blood work, potassium 4.4, creatinine 0.78, glucose 77. White count 5.47, hemoglobin 7.5, hematocrit 25.8. ASSESSMENT: 1. Syncopal episode. 2. Atrial fibrillation with rapid ventricular rate, on metoprolol. 3. Hypertension. 4. Chronic systolic congestive heart failure. 5. Dementia. 6. Coronary artery disease. 7. Upper gastrointestinal bleed. 8. Anemia secondary to upper gastrointestinal bleed. 9. Aortic stenosis. PLAN: At present time, anticoagulation was stopped due to GI bleed and anemia, the patient is high risk for falling. The patient received blood transfusion. May need EGD. Continue to monitor hemoglobin. She sedated and confused. She was started on Seroquel and Ativan. For her atrial fibrillation, she has been on metoprolol. We need to monitor heart rate and blood pressure. Apprise Counselor, GI and psychiatrist as well as neurologist following the patient with me. We are awaiting for some records from outpatient coil winder repair regarding her aortic stenosis. I spent more than 35 minutes examining the patient, reviewing overnight event, lab results, x-ray and discussing plan of care with family. MD KYLE Barone/KYRIE /[id number]
--- NOTE | 2018-10-17 13:32 | Progress Note ---
DATE: 10/17/2018 Cardiology Progress Note SUBJECTIVE: The patient is sleeping, but does awaken to verbal stimuli. She denies chest pain, but is complaining of shortness of breath. OBJECTIVE: VITAL SIGNS: Temperature 97.8 degrees, pulse 82, respiratory rate 20, blood pressure 99/66, oxygen saturation 100% on 2 L nasal cannula. GENERAL: Elderly woman, frail, chronically ill appearing, in no acute distress, confused. HEENT: Periorbital ecchymoses and forehead abrasion are noted on the right. LUNGS: Clear to auscultation bilaterally. No wheezes or crackles. CARDIOVASCULAR: Normal rate, regular rhythm. Systolic murmur at the right upper sternal border. ABDOMEN: Soft, nontender. EXTREMITIES: No edema. CARDIAC MEDICATIONS: Metoprolol tartrate 25 mg p.o. q.6 hours. LABORATORY DATA: WBC 5.47, hemoglobin 7.5, hematocrit 25.8, platelets 207. Sodium 132, potassium 4.4, chloride 98, CO2 of 31, BUN 28, creatinine 0.78. TELEMETRY: Normal sinus rhythm. IMPRESSION: 1. Fall versus syncope. 2. Atrial fibrillation, currently sinus rhythm. 3. Suspected severe aortic valve stenosis. 4. Chronic systolic heart failure. 5. Hypertension. 6. Hyperlipidemia. RECOMMENDATIONS: Continue current cardiac medications. Monitor the patient closely on telemetry. Given the patient's anemia with positive stool occult blood and need for blood transfusion, anticoagulation is on hold as risk of anticoagulation currently outweigh the benefit. We will request records from the patient's outpatient hansard reporter regarding her severe aortic stenosis; however, at this time, she is not a candidate for any intervention given her frailty. Evaluation of altered mental status per primary. GI is evaluating the patient's suspected GI blood loss. No further cardiac evaluation is indicated at this time. Thank you for this consult. We will continue to follow. Nohelia Dunn MD ABS/MODL /[id number]
[2018-10-17] MEDS ORDERED: LORAZEPAM INJ 2 MG/ML VIAL IM PRN (16:00)
[2018-10-17] MEDS ORDERED: RISPERIDONE 0.5 MG TAB PO PRN (16:00)
[2018-10-17] MEDS ORDERED: HALOPERIDOL LACTATE 5 MG/ML VIAL IM PRN (16:15)
--- NOTE | 2018-10-17 16:45 | NUR ---
Received report from nurse in ICU. Patient is coming to room 202.
[2018-10-17] MEDS ORDERED: METOPROLOL TARTRATE INJ 1 MG/ML VIAL ONE (16:55)
[2018-10-17] MEDS ORDERED: METOPROLOL TARTRATE INJ 1 MG/ML VIAL IV ONE (17:00)
[2018-10-17] MEDS ORDERED: METOPROLOL TARTRATE INJ 1 MG/ML VIAL IV PRN (17:00)
--- NOTE | 2018-10-17 17:22 | NUR ---
Nutrition Intervention Note RD Recommendation(s) for Physician: -Continue therapeutic diet as ordered -Rec ONS (vanilla ensure pudding TID) to promote PO intake The patient meets criteria for MODERATE protein-calorie malnutrition. Plan of Care: RD following, monitoring for tolerance and adequacy, ONS rec Nutrition reason for involvement: follow up RD Assessment 10/17: Pt seen for follow up, discussed during am rounds- pt now has sitter and reportedly confused per RN. Pt sleeping at time of visit, did not disturb and sitter not present. Pt with 0-75% meal intake, no GI distress reported per RN during rounds. Current rec's remain appropriate. Will monitor and continue to follow. 10/10: 78 YOF admitted for syncope. Pt was seen d/t MST. Pt reports that her appetite is good but some days she ends up eating very little. Pt stated she usually eats like a bird and picks at different things throughout the day; pt stated she has had some weight loss. Pt has been completing 75% of her meals per chart. Pt denies N/V/C/D, or any chewing/swallowing difficulty. Pt stated she does not like to consume ONS drinks but is willing to consume the Ensure pudding, spoke to nurse about supplement order. Reviewed EMR-pt has no past weights and she could not state how much weight she has lost. Pt had no other questions or concerns. Will continue to monitor. Principal Problems/Diagnoses: Syncope PMH: No H&P in chart GI: Abdomen: soft, non tender. No BM recorded. Skin: No pressure ulcers recorded. Labs: 10/17: Na 132, Mg 2.5 Meds: Abx, coumadin, carafate, protonix Ht: 60 in Wt: 97.3 lbs BMI: 19.0 kg/m2 IBW: 100 lbs Malnutrition Evaluation (10/10) The patient meets criteria for MODERATE protein-calorie malnutrition. Energy intake: <75% of estimated energy requirements for >3 months Weight loss: Unknown Fat loss: Severe clavicle protrusion Muscle loss: Moderate temporal depression Supporting Evidence: Fluid accumulation: unable to evaluate Functional Status: measurably reduced multiple falls in the past Nutrition Prescription (Diet Order): Cardiac Estimated Nutritional Needs: Calories: 3680-8822(25-35kcal/kg/d) Weight used : CBW Protein : 44-66(1-1.5g/kg/d) Weight used: CBW Diet Adequacy: Meeting calorie needs, Not meeting protein need Diet Education Needs Assessment: Diet education indicated, but patient not appropriate for education at this time. Nutrition Care Level: Low Nutrition Diagnosis: Inadequate energy intake related to medical condition as evidenced by pts reports of a decreased appetite. Goal: Patient will meet 75-100% of estimated needs by follow up Progress: Progressing Interventions: Texture modified diet, Commercial food Monitoring/Evaluation: -Total energy intake, Total protein intake, modified diet, supplements Signed: Ofelia Alexander RD, LD, [facility]
[2018-10-17] MEDS: CEFTRIAXONE SOD 1 GM/NS 50 ML 50 ML IV SCH (21:50)
[2018-10-17] MEDS ORDERED: SODIUM CHLORIDE 0.9% 250ML 250 ML ONE (22:00)
[2018-10-17] MEDS: MELATONIN 5 MG TABLET PO SCH (22:02)
--- NOTE | 2018-10-18 00:15 | Consultation ---
DATE OF CONSULTATION: 10/17/2018 Psychiatric Consultation REASON FOR CONSULTATION: To evaluate the patient's psychosis. HISTORY OF PRESENT ILLNESS: The patient is a 78-year-old female, admitted to ICU. Psychiatric consultation was called to evaluate the patient's psychosis. As per medical record, the patient has a history of hypertension, GERD, congestive heart failure, AFib. She presented to ER after syncopal episode. Upon evaluation today, the patient was found to be in the ICU room; however, son-in-law was in the room with her. She is lying on the bed, she has her eyes closed but arousable. She is oriented to self only. When asked if she knows where she is, she repeatedly stating her name. She is unable to answer any other questions and she is calm at this time. She is somewhat drowsy. Collaborative report from the son-in-law, who reports that patient has been somewhat forgetful, repeating herself for the last year and a half to two years. She has never been diagnosed with dementia as far as he knows. She lives alone in a senior apartment complex and she is typically able to do her ADLs. She has been noncompliant with her medications, but with the help of the family members and caregiver, she takes her medications. Son-in-law reports that the patient typically has problem with sleep. She usually takes melatonin and at times Ambien to help with sleep, but the son-in-law states Ambien makes her more restless. The patient was taken to the hospital due to fall at home. Since hospitalization, she has been confused, especially after night. The patient has not been eating well. She received Ativan p.r.n. IV last night at 2200. Since then, she has been sleeping all day. Son-in-law states that the patient has been screaming and has been belligerent . As per nursing staff, the patient has been sleeping all day. He does not know specific behavior that led her to have Ativan IV last night. PAST MEDICAL HISTORY: The patient has no past medical history although as per report she has history of depression and dementia. She has never attempted suicide in the past. FAMILY HISTORY: None as per the son-in-law. SOCIAL HISTORY: The patient lives alone. She does not drink alcohol or use any drugs. MENTAL STATUS EXAM: The patient is an elderly, very thin female. She is confused and oriented to self. Her mood is anxious. Thought process is confused. Memory appears to be grossly impaired. Psychomotor state, has retardation. Insight and judgment are impaired. CURRENT MEDICATIONS: 1. Ceftriaxone. 2. Zofran. 3. Metoprolol. 4. Pantoprazole. 5. Melatonin. 6. Ativan 0.5 IV q.6 hours p.r.n. LABORATORY DATA: WBC 5.47, RBC 2.87, hemoglobin 7.5, hematocrit 25.8, platelets 207. Chemistry; sodium 132, potassium 4.2, chloride 98, CO2 31, BUN 28, creatinine 0.78. AST 26, ALT 11. ASSESSMENT: 1. Unspecified psychosis. 2. Unspecified dementia with behavioral disturbances. PLAN OF TREATMENT: 1. To reduce and change Ativan from IV to IM, to 0.25 IM q.6 hours as needed due to low blood pressure. 2. Add Risperdal 0.5 mg p.o. q.6 hours as needed for agitation. 3. Add Haldol 1 mg IM q.6 hours as needed for agitation and hold for sedation or systolic blood pressure less than 90. 4. Discussed with the son and nursing staff. 5. Monitor for agitation and GI bleed. Thank you for this consultation. Dictated by Kandi Fajardo PA-C Siddharth Finney MD QTV/MODL /[id number]
[2018-10-18 00:30] VITALS: BP 83/50
[2018-10-18 04:00] VITALS: BP 144/57
[2018-10-18] MEDS: METOPROLOL TARTRATE 25 MG TAB PO SCH ×5 (06:01→23:56)
[2018-10-18 06:27] LABS: FERRITIN 44.85 ng/mL (4.63-204.00)
--- NOTE | 2018-10-18 07:00 | NUR ---
RCD PT AT BED PT IS ALERT AND CONFUSED 1:1 SITTER WITH PT PT RESTING ON BED NO SIGNS OF ANY DISTRESS NOTED BED LOW AND LOCKED CALL LIGHT IN REACH
[2018-10-18] MEDS: PANTOPRAZOLE SOD 40 MG TABEC PO SCH (07:30)
[2018-10-18 07:48] LABS: FOLATE 11.1 ng/mL (7.0-15.4)
[2018-10-18 08:30] VITALS: BP 100/70
[2018-10-18 08:47] LABS: HEMATOCRIT 27.9 % (34.2-44.1); HEMOGLOBIN 8.1 g/dL (12.0-16.0); MEAN CORPUSCULAR HEMOGLOBIN 26.6 pg (28-32); MEAN CORPUSCULAR VOLUME 91.5 fL (81-99); PLATELET COUNT 266 x10e3/uL (140-360); RED BLOOD COUNT 3.05 x10e6/uL (3.6-5.1); RED CELL DISTRIBUTION WIDTH 18.9 % (11.7-14.4)
[2018-10-18 09:05] LABS: ANION GAP 13.5 mmol/L (8-16); BLOOD UREA NITROGEN 24 mg/dL (7-26); BUN/CREATININE RATIO 31 (6-25); CALCIUM 8.9 mg/dL (8.4-10.2); CARBON DIOXIDE 29 mmol/L (22-29); CHLORIDE 97 mmol/L (98-107); CREATININE, SERUM 0.77 mg/dL (0.57-1.11); EST GLOMERULAR FILTRATION RATE > 60 ML/MIN (60-); GLUCOSE 68 mg/dL (74-118); POTASSIUM 4.5 mmol/L (3.5-5.1); SODIUM 135 mmol/L (136-145)
--- NOTE | 2018-10-18 11:29 | Progress Note ---
DATE: Ms. Costa is a 78-year-old female with history of hypertension, hyperlipidemia, atrial fibrillation, systolic CHF, dementia, severe aortic stenosis, she came to the emergency room after having probably syncopal episode. She was found to have atrial fibrillation with rapid ventricular rate. She was started on a low dose metoprolol and Eliquis and then patient became anemic with positive stool guaiac. So, anticoagulation was stopped. GI consult was requested. The patient needs EGD when stable. PHYSICAL EXAMINATION: GENERAL: Today, she is awake, she is alert, she feels very weak. VITAL SIGNS: Temperature is 98, blood pressure 144/57. HEART: Irregularly irregular. LUNGS: Clear to auscultation. ABDOMEN: Soft. LABORATORY DATA: On the blood work, potassium 4.4, creatinine is 0.78, glucose 77. White count 5.47, hemoglobin 7.5, hematocrit 25.8. Blood work from yesterday, any new blood work today. ASSESSMENT: 1. Syncopal episode. 2. Atrial fibrillation with rapid ventricular rate, under control now. 3. Hypertension. 4. Chronic systolic congestive heart failure. 5. Severe aortic stenoses. 6. Dementia. 7. Upper gastrointestinal bleed. 8. Anemia secondary to upper gastrointestinal bleed. PLAN: Plan at present time, we are going to continue to monitor hemoglobin and hematocrit. Continue to monitor heart rate, PT/OT. Once stable, the patient needs EGD. We are going to see if she eats today. We are awaiting for records from outpatient completions engineer for her aortic stenoses. She is not a candidate at present time for anticoagulation due to anemia and positive stool guaiac. All this was discussed with the patient and family member at bedside. All questions were answered to satisfaction. MD KYLE Barone/KYRIE /[id number]
[2018-10-18 12:00] VITALS: BP 99/54
[2018-10-18 12:18] LABS: LYMPHOCYTES % (MANUAL) 6 % (19-48); MONOCYTES % (MANUAL) 13 % (3.4-9.0); NEUTROPHILS % (MANUAL) 81 % (40-74)
[2018-10-18 12:19] LABS: ANISOCYTOSIS MODERATE; HYPOCHROMASIA SLIGHT; POLYCHROMASIA FEW
[2018-10-18 12:20] LABS: PLATELET ESTIMATE ADEQUATE; PLATELET MORPHOLOGY COMMENT NORMAL; RBC MORPHOLOGY COMMENT ABNORMAL
[2018-10-18] MEDS ORDERED: ONDANSETRON HCL 4 MG ORAL DISINTEGRATING TAB PO PRN ×2 (15:00)
[2018-10-18] MEDS ORDERED: RISPERIDONE 0.5 MG TAB PO PRN (15:30)
[2018-10-18] MEDS ORDERED: TRAZODONE HCL 50 MG TAB PO PRN (15:30)
--- NOTE | 2018-10-18 16:36 | Progress Note ---
DATE: 10/18/2018 Psychiatric Progress Note SUBJECTIVE: The patient evaluated and events noted. The patient is in the room with a sitter and also son-in-law. She is alert, awake. She is doing better son-in-law. She ate today. She was more talkative, more alert. She has not been combative. She has not received any p.r.n. medication for last 24 to 48 hours. The patient is somewhat confused. She is not able to answer question. She shakes her head when asked if she knows her name or where she is or year or if she recognizes her son-in-law, although the son-in-law states that she was able to talk to the son-in-law and identify him correctly today. She is improving overall. He is concerned for her poor sleep, asking for medication, but something very mild. Discussed with nursing staff regarding medication changes. ASSESSMENT: 1. Unspecified psychosis. 2. Unspecified dementia with behavioral disturbances. PLAN: 1. Continue Ativan 0.25 IM q.6 hours p.r.n. for severe anxiety. 2. Reduce Risperdal to 0.25 mg p.o. q.6 hours p.r.n. for agitation. 3. Continue Haldol 1 mg IM q.6 hours p.r.n. for severe agitation. 4. Continue with melatonin. 5. Add trazodone 75 mg p.o. at bedtime p.r.n. for insomnia. 6. Supportive therapy. 7. Monitor for mood. Dictated by Kandi Fajardo PA-C Siddharth Finney MD QTV/MODL /[id number]
--- NOTE | 2018-10-18 17:27 | Progress Note ---
DATE: 10/18/2018 Cardiology Progress Note SUBJECTIVE: The patient denies chest pain or shortness of breath. She is confused. OBJECTIVE: VITAL SIGNS: Temperature 96.1 degrees, pulse 83, respiratory rate 20, blood pressure 99/54, and oxygen saturation 99% on 2 L nasal cannula. GENERAL: Frail woman, elderly, no acute distress. Chronically ill-appearing, confused. HEENT: Normocephalic. Periorbital ecchymoses noted. LUNGS: Clear to auscultation bilaterally. No wheeze or crackles. CARDIOVASCULAR: Normal rate, regular rhythm. Systolic murmur at the right upper sternal border. ABDOMEN: Soft, nontender. EXTREMITIES: No edema. CARDIAC MEDICATIONS: Metoprolol tartrate 25 mg p.o. q.6 hours. LABORATORY DATA: WBC 6.05, hemoglobin 8.1, hematocrit 27.9, platelets 266. Sodium 135, potassium 4.5, chloride 97, CO2 29, BUN 24, creatinine 0.77. TELEMETRY: Atrial fibrillation. IMPRESSION: 1. Fall versus syncope. 2. Atrial fibrillation. 3. Suspected severe aortic valve stenosis. 4. Chronic systolic heart failure. 5. Hypertension. 6. Hyperlipidemia. RECOMMENDATIONS: Continue current cardiac medications. Monitor patient closely on telemetry. Given patient's anemia with positive stool occult blood and need for blood transfusion anticoagulation is on hold as risk of anticoagulation currently outweigh the benefits. We will request records from patient's outpatient health and fitness instructor regarding her severe aortic stenosis. However, at this time she is not a candidate for any intervention given her frailty. Evaluation of altered mental status per primary. GI is evaluating patient's suspected GI blood loss. No further cardiac evaluation is indicated at this time. Thank you for this consult. We will continue to follow. Nohelia Dunn MD ABS/MODL /[id number]
--- NOTE | 2018-10-18 19:09 | NUR ---
PT RESTING ON BED BED SIDE REPORT GIVEN TO ONCOMING NURSE
[2018-10-18 19:37] VITALS: BP 86/54
[2018-10-18] MEDS: CEFTRIAXONE SOD 1 GM/NS 50 ML 50 ML IV SCH (21:16)
[2018-10-18] MEDS: MELATONIN 5 MG TABLET PO SCH (21:16)
[2018-10-18 23:43] VITALS: BP 91/48
[2018-10-19] VITALS (7 sets, daily range): BP systolic 89–107; BP diastolic 49–64
[2018-10-19] MEDS ORDERED: IRON SUCROSE 100 MG in SODIUM CHLORIDE 0.9% 100 ML 100 ML IV SCH (05:00)
[2018-10-19] MEDS: METOPROLOL TARTRATE 25 MG TAB PO SCH ×4 (05:07→23:57)
[2018-10-19] MEDS: PANTOPRAZOLE SOD 40 MG TABEC PO SCH (07:30)
[2018-10-19] MEDS: CYANOCOBALAMIN INJ 1,000 MCG/ML VIAL IM SCH (09:00)
[2018-10-19] MEDS: IRON SUCROSE 100 MG in SODIUM CHLORIDE 0.9% 100 ML 100 ML IV SCH (09:59)
--- NOTE | 2018-10-19 11:01 | Progress Note ---
DATE: 10/19/2018 SUBJECTIVE: Ms. Costa is a 78-year-old female with history of hypertension, hyperlipidemia, atrial fibrillation, dementia, systolic CHF, and aortic stenosis, taken to the emergency room after having syncopal episode. She was found to have atrial fibrillation with rapid ventricular rate that is under control right now. She was started on Eliquis, but then she developed anemia and positive stool guaiac, so Eliquis was stopped. She was seen by GI and at present time, she is stable. No recurrent bleeding, so no further workup needed. PHYSICAL EXAMINATION: GENERAL: Today, she is awake and alert. She feels very weak. VITAL SIGNS: Temperature is 96 and blood pressure 97/50. HEART: Irregularly irregular. LUNGS: Clear to auscultation. ABDOMEN: Soft. LABORATORY DATA: Potassium 4.5, creatinine 0.77, glucose 68. White count 6.05, hemoglobin 8.1, and hematocrit 27.9. ASSESSMENT: 1. Syncopal episode. 2. Atrial fibrillation. 3. Hypotension. 4. Chronic systolic congestive heart failure. 5. Severe aortic stenosis. 6. Dementia. 7. Upper gastrointestinal bleed. 8. Anemia secondary to upper gastrointestinal bleed. PLAN: Plan at the present time is the patient needs a longterm facility evaluation. She is not able to be at home by herself. Continue PT, OT. EGD on hold. Hemoglobin has been stable, no signs of rebleeding. No anticoagulation at present time due to the patient high risk of falling as well as GI bleed. Regarding aortic stenosis, get any records from prior Cardiology, so that is on hold at the present time too. Plan is to send the patient to SNF. Once she gets approved further discussion regarding EGD and treatment on her aortic stenosis. All this was discussed with her and her daughter, all questions were answered to satisfaction. MD KYLE Barone/KYRIE /[id number]
--- NOTE | 2018-10-19 14:36 | Progress Note ---
DATE: 10/19/2018 Cardiology Progress Note SUBJECTIVE: The patient is confused. She denies chest pain or shortness of breath. OBJECTIVE: VITAL SIGNS: Temperature 97.3 degrees, pulse 89, respiratory rate 16, blood pressure 89/49, and oxygen saturation 98%. GENERAL: Elderly woman, frail, no acute distress, chronically ill-appearing, confused. HEENT: Normocephalic with periorbital ecchymosis noted. LUNGS: Clear to auscultation bilaterally. No wheezes or crackles. CARDIOVASCULAR: Normal rate. Regular rhythm. Systolic murmur at the right upper sternal border. ABDOMEN: Soft and nontender. EXTREMITIES: No edema. CARDIAC MEDICATIONS: Metoprolol 25 mg p.o. q.6 hours. LABORATORY DATA: None today. TELEMETRY: Atrial fibrillation. IMPRESSION: 1. Fall versus syncope. 2. Atrial fibrillation. 3. Suspected severe aortic valve stenosis. 4. Chronic systolic heart failure. 5. Hypertension. 6. Hyperlipidemia. RECOMMENDATIONS: Continue current cardiac medications. Monitor the patient closely on telemetry. Given the patient's anemia with positive stool occult blood and need for blood transfusion, anticoagulation is on hold as risk of anticoagulation currently awaits the benefits. We will request records from the patient's outpatient track hoe operator regarding her severe aortic stenosis. However, at this time, she is not a candidate for any intervention given her frailty. Evaluation of altered mental status per primary. evaluate the patient's suspected blood loss. No further cardiac evaluation is indicated at this time. Thank you for this consult. We will continue to follow. Nohelia Dunn MD ABS/MODL /[id number]
--- NOTE | 2018-10-19 16:15 | NUR ---
GOT REFERRAL FOR SNF, PT IS CONFUSED AND HAS A SITTER, UNABLE TO PROCEED WITH SNF AT THIS POINT, HAVE SPOKEN WITH SON PRIOR HE STATES SHE WAS AT [facility] PRIOR AND WOULD LIKE FOR HER TO GO BACK THERE WHEN IT IS TIME.
--- NOTE | 2018-10-19 18:43 | NUR ---
PT RESTING ON BED BED SIDE REPORT GIVEN TO ONCOMING NURSE
[2018-10-19] MEDS: CEFTRIAXONE SOD 1 GM/NS 50 ML 50 ML IV SCH (20:39)
[2018-10-19] MEDS: MELATONIN 5 MG TABLET PO SCH (20:39)
--- NOTE | 2018-10-19 20:59 | NUR ---
IV to left forearm infiltrated, new 22G to left wrist started with good blood return, pt tolerated procedure
[2018-10-20] VITALS (7 sets, daily range): BP systolic 91–118; BP diastolic 55–77
[2018-10-20] MEDS: METOPROLOL TARTRATE 25 MG TAB PO SCH ×3 (05:14→17:07)
[2018-10-20 05:24] LABS: BASOPHILS % 0.2 % (0.0-1.0); EOSINOPHILS # (AUTO) 0.1 (0.0-0.4); EOSINOPHILS % 2.2 % (0.0-6.0); HEMATOCRIT 27.6 % (34.2-44.1); HEMOGLOBIN 8.1 g/dL (12.0-16.0); LYMPHOCYTES # (AUTO) 0.6 (1.0-3.2); LYMPHOCYTES % 10.6 % (18.0-39.1); MEAN CORPUSCULAR HGB CONC 29.3 g/dL (31-35); MEAN CORPUSCULAR VOLUME 88.7 fL (81-99); MONOCYTES # (AUTO) 0.8 (0.2-0.8); MONOCYTES % 13.4 % (4.4-11.3); NEUTROPHILS # (AUTO) 4.3 (2.1-6.9); NEUTROPHILS % 73.3 % (38.7-80.0); PLATELET COUNT 265 x10e3/uL (140-360); RED BLOOD COUNT 3.11 x10e6/uL (3.6-5.1); RED CELL DISTRIBUTION WIDTH 19.5 % (11.7-14.4)
--- NOTE | 2018-10-20 07:00 | NUR ---
The pt was received form the off-going nurse in bed asleep and laying on the right side. The bed rails are up times two and the alarm is in place.
[2018-10-20] MEDS: CYANOCOBALAMIN INJ 1,000 MCG/ML VIAL IM SCH (09:09)
[2018-10-20] MEDS: IRON SUCROSE 100 MG in SODIUM CHLORIDE 0.9% 100 ML 100 ML IV SCH (09:09)
[2018-10-20] MEDS: PANTOPRAZOLE SOD 40 MG TABEC PO SCH (09:09)
--- NOTE | 2018-10-20 10:35 | NUR ---
WOUND CARE CONSULTATION - INITIAL EVALUATION Patient admitted from Home to ER for S/P fall DX: Syncope Wound Care Consulted for Evaluation of Sacral/ Perirectal area redness. PATIENT VISIT: Jasiel Score 17 Alternating Pressure Air Mattress in place. Moderate PUP active. Patient pleasantly confused, in bed resting on Right Side. Patient able to move with min assist. Diapered. Sacral area has Allevyn Foam Sacrum Dressing. No Drainage noted. Blanchable Erythema To Sacral Area. HX of Pressure Ulcer in the past and since it has been healed. Took approx 6 months to close. On inspection annular scar tissue with small indentation that is 100% epithelialized. No open skin noted. IMPRESSION: No Pressure Ulcers Identified. Right Forehead - laceration with bruising- Scabbed and is stable- Open To Air. Left Forearm Skin Tear with Xeroform Single Layer in Place. RECOMMENDATION: 1. Sacral Area - Kyle Cream q12H and Cover with Allevyn Foam Sacrum Dressing. 2. Continue Moderate PUP Protocol 3. Encourage OOB activity. 4. Turn reposition patient every 2 Hours while in bed using clock turning schedule. Thank you for consulting with Wound Care. Addendum: 10/20/18 at 1040 by Russell Ellis RN Amended: Links added.
[2018-10-20] MEDS ORDERED: ZINC OXIDE / BALSAM PERU 30 GM TUBE TOP SCH (10:45)
--- NOTE | 2018-10-20 14:35 | NUR ---
PT ACCEPTED TO [address] [address] CALL REPORT TO [phone] [address]ER [address] CROCKETT
--- NOTE | 2018-10-20 16:19 | NUR ---
WENT INTO PT'S ROOM TO ASK PT TO SIGN IMM PT REFERRED ME TO HER DTR SITTING IN ROOM TO SIGN IMM DTR REFUSES TO SIGN UNTIL HER BROTHER GETS TO THE HOSPITAL AT 7PM GAVE DTR A COPY OF IMM AND GAVE CHART COPY TO NURSE RALPH TO HAVE SON/DTR SIGN WHEN SON GETS HERE AT 7PM
--- NOTE | 2018-10-20 20:06 | NUR ---
Patient left unit with EMS and family and left via ambulance and was transferred to [facility] in stable condition. Patient still on IV 22g to left wrist. EMS aware. Patient left without telemetry box on.
--- NOTE | 2018-10-20 20:46 | Progress Note ---
DATE: 10/20/2018 Cardiology Progress Note SUBJECTIVE: The patient denies chest pain or shortness of breath. She is able to state she is in a hospital, but believes it was 2018. OBJECTIVE: VITAL SIGNS: Temperature 96.7 degrees, pulse 70, respiratory rate 20, blood pressure 91/55, and oxygen saturation 100% on 2 L nasal cannula. GENERAL: Elderly woman, frail, in no acute distress, chronically ill appearing, confused. HEENT: Normocephalic with periorbital ecchymosis on the right. LUNGS: Clear to auscultation bilaterally. No wheeze or crackles. CARDIOVASCULAR: Normal rate. Regular rhythm. Systolic murmur at the right upper sternal border. ABDOMEN: Soft, nontender. EXTREMITIES: No edema. CARDIAC MEDICATIONS: Metoprolol tartrate 25 mg p.o. q.6 hours, LABORATORY DATA: WBC 5.84, hemoglobin 8.1, hematocrit 27.6, platelets 265. Sodium 135, potassium 4.5, chloride 97, CO2 of 29, BUN 24, creatinine 0.77. TELEMETRY: Atrial fibrillation. IMPRESSION: 1. Fall versus syncope. 2. Atrial fibrillation. 3. Suspected severe aortic stenosis. 4. Chronic systolic heart failure. 5. Hypertension. 6. Hyperlipidemia. RECOMMENDATION: Continue current cardiac medication. Monitor the patient closely on telemetry. Given the patient's anemia with positive stool occult blood and need for blood transfusion, anticoagulation is on hold as risk for anticoagulation currently outweighs the benefits. We will request records from the patient's outpatient rand butting machine operator regarding her severe aortic stenosis; however, at this time she is not a candidate for any intervention given her frailty. Evaluation of altered mental status per primary. GI to evaluate the patient's suspected blood loss. No further cardiac evaluation is indicated at this time. Thank you for this consult. We will continue to follow. Nohelia Dunn MD ABS/MODL /[id number]
--- NOTE | 2018-10-21 06:41 | Discharge Summary ---
HOSPITAL COURSE: Ms. Costa is a 78-year-old female with history of hypertension, hyperlipidemia, atrial fibrillation, dementia, systolic CHF, and aortic stenosis. She came to the emergency room after having a syncopal episode. She was found to have atrial fibrillation with rapid ventricular rate that is under control right now. Eliquis has to be stopped because the patient has high risk of falling and she developed anemia and positive stool guaiac. No candidate for upper GI workup at present time, so the plan at the present time is to transfer patient to SNF to continue her care. Once she is more stable, she is going to need an EGD. PHYSICAL EXAMINATION: GENERAL: Today, she is awake and alert. VITAL SIGNS: Temperature is 96.7 and blood pressure 91/55. HEART: Irregularly irregular. LUNGS: Clear to auscultation. ABDOMEN: Soft. LABORATORY DATA: On the blood work potassium 4.5, creatinine is 0.77, glucose is 68. White count 5.84, hemoglobin 8.1, and hematocrit 27.6. ASSESSMENT AND PLAN: 1. Status post syncopal episode. 2. Atrial fibrillation with rapid ventricular rate under control now. 3. Hypotension. 4. Chronic systolic congestive heart failure. 5. Severe aortic stenosis. 6. Dementia. 7. Upper gastrointestinal bleed. 8. Anemia secondary to upper gastrointestinal bleed. PLAN: At the present time is we are awaiting for longterm facility to send the patient, so she can continue to be monitored and continue PT/OT. Anticoagulation on hold due to high risk of falling as well as a history of anemia and upper GI bleed. Cardiology is here trying to get an attempt to get in touch with her regular director social welfare regarding her aortic stenoses. When she gets we are going to transfer her to SNF and then once she is stable, she is going to need to follow up with her director social welfare and once she is stable, she is going to need an EGD as an outpatient. All this was discussed with the patient and family. All questions were answered to satisfaction. Please see home medication reconciliation list. MD KYLE Barone/KYRIE /[id number]
== END 2018-10-20 20:08 | DRG 378 ==
LOC: ER 17:43 → ERHOLD 10-10 00:48 → IMCU 10-10 02:18 → OBSVTOIN 10-14 08:24 → ICU 10-14 09:39 → MED/SURG2 10-17 17:17
PROVIDERS: ADMIT Internal Medicine; ATTEND Internal Medicine
DX: K92.2 Gastrointestinal hemorrhage, unspecified (principal); I50.22 Chronic systolic (congestive) heart failure; I11.0 Hypertensive heart disease with heart failure; I48.91 Unspecified atrial fibrillation
CPT/HCPCS: 36415; 70450; 70486; 71045; 71046; 72125; 80048; 80053; 81001; 82270; 82550; 82553; 82607; 82728; 82746; 83540; 83880; 84466; 84484; 85007; 85025; 85027; 85045; 85610; 85730; 86850; 86900; 86920; 93005; 93306; 93880; 97139; 99284; G0378; J0696; J1756; J2060; J2405; J3420; J7030; J7050; P9016